=== PATIENT | male | born 1965 | race Caucasian/White ===

== ENCOUNTER → 2019-02-10 07:43 | Outpatient (CLI) | payer OTHER, SELFPAY ==
--- NOTE | 2019-02-10 | CA_ITS ---
APPROVED REPORT Exam: Exercise Treadmill Technologist: kathy gallo, Ht: 5 ft 6 in Wt: 180 lbs BSA: 1.91 m2 HR: 63 bpm BP: 127/89 mmHg Indications: SOB< CAD Medical History Medications: Asa,,,,, Atorvastatin,,,,, Stress Test Details Test: Tab HR Resting HR: 72 bpm Max Heart Rate (APMHR): 167 bpm Max HR Achieved: 148 bpm Target HR (85% APMHR): 141 bpm % of APMHR: 88 Recovery HR: 106 bpm BP Resting BP: 127.0/89.0 mmHg Max BP: 166.0/88.0 mmHg Recovery BP: 148.0/79.0 mmHg ECG Clinical Exercise duration: 10:15 min Highest Stage Achieved: Exercise capacity: 12.8 METs Stress ECG Conclusion SYMPTOMS: NO CHEST PAIN. ARRHYTHMIAS/ECTOPY: OCC ISOLATED PVC. ST-T CHANGES: APPROX 1MM OF SLIGHTLY UPSLOPING ST DEPRESSION INFERIORLY WITH MOTION ARTIFACT. EQUIVOCAL EKG CHANGES. MYOVIEW IMAGES REPORTED SEPARATELY. Test Summary Stage 3 01:00 14.0 3.4 119 . . . . REST . . . . . . . Sitting REST 04:24 0.0 0.0 72 . 127/ 89 . . Stage 1 01:00 10.0 1.7 85 . . . . Stage 1 02:00 10.0 1.7 88 . . . . Stage 1 03:00 10.0 1.7 88 . 145/ 85 . . Stage 2 01:00 12.0 2.5 99 . . . . Stage 2 02:00 12.0 2.5 102 . . . . Stage 2 03:00 12.0 2.5 104 . 154/ 84 . . Stage 3 01:00 14.0 3.4 119 . . . . Stage 3 02:00 14.0 3.4 126 . . . . Stage 3 03:00 14.0 3.4 132 . 166/ 88 . . Stage 4 . . . . . . . Cardiolite injected Stage 4 01:00 16.0 4.2 145 . . . . Stage 4 01:15 16.0 4.2 147 . . . Stop exercise at 10:15 RECOVERY 01:00 0.0 0.0 122 . . . . RECOVERY 02:00 0.0 0.0 110 . 148/ 79 . . RECOVERY 03:00 0.0 0.0 91 . 148/ 79 . . RECOVERY 04:00 0.0 0.0 88 . 153/ 75 . . RECOVERY 05:00 0.0 0.0 87 . 141/ 76 . . RECOVERY 05:24 0.0 0.0 91 . 141/ 76 . . Electronically signed by : Rajinder Chiu, 02/16/2019 11:41:43
--- NOTE | 2019-02-10 07:44 | NM_ITS ---
APPROVED REPORT Exam: Nuclear Stress Test NM EXAM: Myocardial Perfusion REST/STRESS Imaging Protocol: Rest Tc-99m/Stress Tc-99m 1 day Resting Data Rest SPECT myocardial perfusion imaging was performed in supine position 30 minutes following the intravenous injection of 10.10 mCi of tc99 Time of rest injection: 0800 The images were gated to evaluate regional wall motion and calculate left ventricular ejection fraction. Administration Route: IV Administration Site: Left AC Exercise Stress At peak stress, the patient was injected intravenously with 32.4mCi of Tc-99m Tetrofosmin. Time of stress injection: 0915 Administration Route: IV Administration Site: Left AC Heart Rate at time of stress injection: 130 bpm. Patient continued to exercise for 10:15 minute(s). Gated Stress SPECT was performed 30 minutes after stress injection. The images were gated to evaluate regional wall motion and calculate left ventricular ejection fraction. Nuclear Conclusion Stress images reveal severely decreased activity throughout the lateral wall while rest images reveal no significant change. Gated images calculated ejection fraction of 63% with normal wall motion. Extensive lateral wall infarct not accompanied by reduction in ejection fraction or regional wall motion abnormality. This is a high risk abnormal stress test Electronically signed by : Rajinder Chiu, 02/11/2019 13:26:32
--- NOTE | 2019-02-10 12:39 | HMH.ITSHM ---
Current Home Medications as stated by this patient Kris Sneed or loan representative. [] atorvastatin asa
== END ==
PROVIDERS: PCP Orthopaedic Surgery; Visit Provider Internal Medicine Cardiovascular Disease
DX: E78.5 Hyperlipidemia, unspecified (principal); I11.9 Hypertensive heart disease without heart failure; I25.10 Atherosclerotic heart disease of native coronary artery without angina pectoris; R06.02 Shortness of breath; F17.200 Nicotine dependence, unspecified, uncomplicated
CPT/HCPCS: 78452; 93017; A9502

== ENCOUNTER → 2019-02-16 07:44 | Outpatient (CLI) | payer OTHER, SELFPAY ==
--- NOTE | 2019-02-16 07:51 | CA_ITS ---
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 Laterality: Bilateral Study Quality: Good Indications: stroke, cva Risk Factors Hypertension: TIA/CVA History Hyperlipidemia Doppler Spectral Velocity Analysis ECA (R) 88.20/ cm/s ECA (L) 77.20/ cm/s dICA (R) 77.20/39.70 cm/s dICA (L) 82.60/44.60 cm/s Jl (R) 79.40/37.50 cm/s Jl (L) 87.10/39.70 cm/s pICA (R) 72.20/33.10 cm/s pICA (L) 65.10/31.40 cm/s dCCA (R) 82.90/34.90 cm/s dCCA (L) 72.20/33.10 cm/s pCCA (R) 74.60/24.40 cm/s pCCA (L) 76.60/32.00 cm/s Vert (R) 40.20/ cm/s Vert (L) 64.00/ cm/s ICA/CCA 0.96 ICA/CCA 1.21 Findings Duplex evaluation demonstrates stenosis of the right proximal internal carotid artery in the range of 20-49% with PSV <140 cm/sec, EDV <100 cm/sec, and IC/CC Ratio <4.0.Duplex evaluation demonstrates stenosis of the left proximal internal carotid artery in the range of 20-49% with PSV <140 cm/sec, EDV <100 cm/sec, and IC/CC Ratio <4.0. Duplex evaluation demonstrates antegrade flow of the bilateral Vertebral Arteries. Conclusion Duplex evaluation demonstrates stenosis of the right proximal internal carotid artery in the range of 20-49% with PSV <140 cm/sec, EDV <100 cm/sec, and IC/CC Ratio <4.0.Duplex evaluation demonstrates stenosis of the left proximal internal carotid artery in the range of 20-49% with PSV <140 cm/sec, EDV <100 cm/sec, and IC/CC Ratio <4.0. Duplex evaluation demonstrates antegrade flow of the bilateral Vertebral Arteries. Electronically signed by : Malvin Aguilar MD 02/16/2019 17:30:18
== END ==
PROVIDERS: Visit Provider Internal Medicine Cardiovascular Disease
DX: R06.02 Shortness of breath (principal); I25.10 Atherosclerotic heart disease of native coronary artery without angina pectoris; E78.5 Hyperlipidemia, unspecified; I11.9 Hypertensive heart disease without heart failure; Z86.73 Personal history of transient ischemic attack (TIA), and cerebral infarction without residual deficits
CPT/HCPCS: 93306; 93880

== ENCOUNTER → 2019-09-22 08:32 | Outpatient (CLI) | payer OTHER, SELFPAY ==
--- NOTE | 2019-09-22 08:38 | XR_ITS ---
PROCEDURE: XR FINGER LT MIN 2V CLINICAL INDICATION: left thumb fx/ laceration COMPARISON: FINGERLT XR finger LT min 2V from 07/26/2018 XR HAND LT MIN 3V from 09/01/2019 FINDINGS: There is continued evidence of comminuted fracture of the distal phalangeal tuft of the 1st digit with mild distraction of the fracture fragments greatest along the radial aspect of the digit. No significant interval callus formation of healing is apparent. The joint spaces are well-preserved. No significant degenerative/arthritic changes. No erosive changes evident. Other findings:None. IMPRESSION: Continued slight distraction of comminuted fracture fragments distal phalangeal tuft without significant callus formation of healing. Dictated by: Kris Frausto 09/22/2019 09:40 Electronically signed by Kris Frausto in [place] 09/22/2019 09:40
== END ==
PROVIDERS: Visit Provider Orthopaedic Surgery
DX: S62.522A Displaced fracture of distal phalanx of left thumb, initial encounter for closed fracture (principal)
CPT/HCPCS: 73140

== ENCOUNTER → 2019-10-27 08:42 | Outpatient (CLI) | payer OTHER, SELFPAY ==
--- NOTE | 2019-10-27 08:51 | XR_ITS ---
PROCEDURE: XR HAND LT MIN 3V CLINICAL INDICATION: thumb lac FU Follow-up laceration COMPARISON: XR HAND LT MIN 3V from 09/01/2019 FINDINGS: Fracture once again noted involving the tuft of the distal phalanx of the thumb. There are multiple small opacities at this area. Some of these may be due to comminuted fragments while others could be due to foreign body. There is somewhat less tightly grouped compared to the previous exam. Small calcific density is present at the tip of the distal phalanx of the 2nd finger. Small subarticular cystic changes present at the distal aspect of the proximal phalanx of the 5th finger IMPRESSION: Loosely clustered small opacities at the distal phalanx of the thumb which could be due to small bony fragments and or foreign bodies. Dictated by: Malvin Aguilar MD 10/27/2019 10:23 Electronically signed by Malvin Aguilar MD in [place] 10/27/2019 10:23
== END ==
PROVIDERS: Visit Provider Orthopaedic Surgery
DX: S61.019A Laceration without foreign body of unspecified thumb without damage to nail, initial encounter (principal); S62.522A Displaced fracture of distal phalanx of left thumb, initial encounter for closed fracture
CPT/HCPCS: 73130

== ENCOUNTER → 2022-03-13 06:54 | Outpatient (CLI) | payer BC, SELFPAY ==
[2022-03-13 16:32] LABS: Basophils # 0.2 K/mm3 (0-0.2); Basophils % 1.7 % (0.1-2.0); Eosinophils # 0.2 K/mm3 (0.0-0.4); Eosinophils % 1.6 % (0.1-12.0); Hematocrit 49.5 % (42.0-52.0); Hemoglobin 16.3 g/dL (14.1-18.0); Lymphocytes # 2.9 K/mm3 (0.7-4.5); Lymphocytes % 30.6 % (10-50); Mean Corpuscular HGB Conc 32.9 g/dL (31.8-35.4); Mean Corpuscular Volume 100.2 fl (80-94); Mean Platelet Volume 8.8 fl (7.4-10.4); Monocytes # 0.4 K/mm3 (0.1-1.0); Monocytes % 4.6 % (1.7-9.3); Neutrophils # 5.8 K/mm3 (1.8-7.8); Neutrophils % 61.5 % (37.0-80.0); Platelet Count 291 K/mm3 (142-424); Red Blood Count 4.94 M/mm3 (4.60-6.20); White Blood Count 9.3 K/mm3 (4.8-10.8)
[2022-03-13 16:37] LABS: Alanine Aminotransferase 17 U/L (12-78); Albumin Level 3.8 g/dl (3.5-5.0); Albumin/Globulin Ratio 1.4 (1.1-1.8); Alkaline Phosphatase 124 U/L (38-126); Anion Gap 13.1 mEq/L (5-15); Aspartate Amino Transferase 33 U/L (17-59); Bilirubin,Total 0.5 mg/dl (0.2-1.3); Blood Urea Nitrogen 18 mg/dl (9-20); Calcium 8.9 mg/dl (8.4-10.2); Carbon Dioxide 28 mmol/L (22.0-30.0); Chloride 103 mmol/L (98-107); Chol/HDL Ratio 5.1 (1-3.5); Cholesterol 143 mg/dl (140-200); Estimated Glomerular Filt Rate 77 ml/min (>60); GFR (African American) 94 ML/MIN (>60); Globulin 2.7 g/dL (1.3-3.2); Glucose 97 mg/dl (74-100); HDL Cholesterol 28 mg/dl (40-60); Potassium 5.1 mmoL/L (3.5-5.1); Sodium 139 mmol/L (136-145); Total Protein,Serum 6.5 g/dl (6.3-8.2); Triglycerides 104 mg/dl (30-150); VLDL Cholesterol 21 mg/dL (0-40)
[2022-03-13 16:48] LABS: Direct LDL Cholesterol 94.25 mg/dL (100-129)
[2022-03-13 16:55] LABS: Hemoglobin A1C 5.5 % (4.0-6.0)
[2022-03-13 17:08] LABS: Thyroid Stimulating Hormone 1.39 uIU/mL (0.465-4.68)
== END ==
PROVIDERS: PCP Family Medicine; Visit Provider Family Medicine
DX: D68.51 Activated protein C resistance (principal); I10 Essential (primary) hypertension; E78.2 Mixed hyperlipidemia
CPT/HCPCS: 80053; 80061; 83036; 84443; 85025

== ENCOUNTER 2022-04-23 09:48 | Day surgery (SDC) | payer BC, OTHER, SELFPAY ==
[2022-04-07 14:13] VITALS: BMI 29.8
[2022-04-23] VITALS (7 sets, daily range): BP systolic 87–115; BP diastolic 58–73; PULSE 48–64; RESP 18; TEMP 36.2–36.6; O2SAT 95–100
--- NOTE | 2022-04-23 11:46 | EXP.ANES.CKL ---
PFSH PFS Medical History (Updated 04/23/22 @ 10:29 by Kaylee Dave RN) Allergies History of CVA (cerebrovascular accident) History of [place] (myocardial infarction) Hx of factor V Leiden mutation Hyperlipemia Hypertension Surgical History History of cardiac cath Family History (Updated 04/23/22 @ 10:29 by Kaylee Dave RN) Father Family history of myocardial infarction Stroke Family/Other Brain tumor Alzheimer disease Grandmother Alzheimer disease Social History (Updated 04/23/22 @ 10:31 by Kaylee Dave RN) Smoking Status: Current every day smoker tobacco type: cigarettes packs per day: 1 years smoked: 42 alcohol intake: current substance use type: denies use current occupational status: employed Travel in the last 8 weeks: None household members: spouse housing: house lives independently: Yes marital status: caffeine: Yes special sariah needs: No agree to transfusion: No do you feel safe at home: Yes victim of physical abuse: No victim of emotional abuse: No victim of sexual abuse: No would you like helpful sources: No [facility] Anesthesia Checklist Patient Identification Patient Identification: Arm Band Structural Data Admitted From: Home Planned Operative Procedure/s: colonoscopy Consent for Planned Operative Procedure(s) Verified: Yes Verified Documents: Surgical Consent and History and Physical NPO Status Verified Time NPO: 00:00 Additional verifications Anesthesia Reactions: No Airway Assessment C-Spine Mobility Assessed: Yes TMJ Mobility Assessed: Yes Dentition: Poor Dentition Neurological Assessment Level of Consciousness: Awake and Alert Anesthesia Plan Anesthesia Risk discussed: Yes Anesthesia Plan: Verified ASA Class: III Anesthesia Type: MAC
--- NOTE | 2022-04-23 13:00 | P.PCN_ITS ---
Procedure: Date: 04/23/22 Patient Date of :: 1965 Procedure Performed:: Colonoscopy Indications:: Positive Cologuard test Performing Provider:: Artem Bravo MD Referring Provider:: Tod Valderrama Sedation:: See RN records Procedure:: After placing the patient in the left lateral decubitus position, the colonoscopy was gently inserted into the rectum and under direct visualization advanced to the cecum which was identified by transillumination in the right lower quadrant, identification of the ileocecal valve, appendiceal orifice, and cecal strap. Color, texture, mucosa, and anatomy of the colon were carefully examined with the scope. Findings:: Anal canal: normal Rectum: Large penduculated polyp 20 mm in size. Removed completely with hot sna re polypectomy. Polyp was retrieved. Sigmoid colon: Sessile polyp 4 mm in size. Removed with cold snare polypectomy Descending colon: Pedunculated polyp 8-9 mm in size. Removed with hot snare polypectomy. Polyp was retrieved. Splenic flexure: normal Transverse colon: Two sessile polyps 5-6 mm in size. Removed with cold snare polypectomy Hepatic flexure: normal Ascending colon: normal without polyps or inflammatory changes Cecum: normal Terminal ileum: not visualized Impression: Multiple polyps Recommendations:: Await pathology results Repeat colonoscopy in 2 years or sooner if clinically indicated Complications:: None Estimated blood obtained (mL): 0
== END 2022-04-23 13:51 | disposition home or self-care (01) ==
PROVIDERS: PCP Family Medicine; Visit Provider Internal Medicine
PROC: 0DJD8ZZ Inspection of Lower Intestinal Tract, Via Natural or Artificial Opening Endoscopic (ICD-10-PCS; CPT 45378; principal; 2022-04-23 11:00)
DX: R19.5 Other fecal abnormalities (principal); K63.5 Polyp of colon; Z72.0 Tobacco use; Z79.899 Other long term (current) drug therapy
CPT/HCPCS: 45385

== ENCOUNTER → 2022-07-04 09:36 | Outpatient (CLI) | payer BC, OTHER, SELFPAY ==
--- NOTE | 2022-07-04 09:46 | XR_ITS ---
FINAL REPORT CLINICAL HISTORY: rt shoulder pain after chopping wood FINDINGS: RIGHT SHOULDER 3 views of the right shoulder were obtained. There is no acute fracture or dislocation. There are mild degenerative changes of the acromioclavicular and glenohumeral joints. There are subchondral cysts in the humeral head. There is no soft tissue abnormality. IMPRESSION: Degenerative change with no acute bony abnormality. Reviewed, Interpreted and Dictated by Randall Subramanian III, MD Transcribed by Radha Munoz Authenticated and [facility]
== END ==
PROVIDERS: PCP Family Medicine; Visit Provider Orthopaedic Surgery
DX: M25.511 Pain in right shoulder (principal)
CPT/HCPCS: 73030

== ENCOUNTER 2022-08-22 10:32 | Day surgery (SDC) | payer BC, OTHER, SELFPAY ==
[2022-08-22] VITALS (13 sets, daily range): BP systolic 106–129; BP diastolic 69–107; PULSE 56–80; RESP 17–18; O2SAT 93–100; BMI 30.4
--- NOTE | 2022-08-22 10:36 | IR_ITS ---
APPROVED REPORT Patient Location: Outpatient Mass Spectrometry Manager: TRACY Avalos RT (R) PROCEDURES Left heart catheterization Left ventriculogram Selective coronary angiogram Drug-eluting stent deployment to the proximal LAD Intravascular ultrasound of the right coronary artery Drug-eluting stent deployment to the proximal mid and distal dominant right coronary contiguous manner INDICATION Unstable angina, Coronary artery disease, Hazy lesion within the right coronary artery suggestive of ruptured plaque, MLA 3.5 mm??? within the right coronary, Plaque burden of 76.9% within the right coronary, Informed consent was obtained prior to the procedure. COMPLICATIONS None Estimated Blood Loss: Less than 10 mls TECHNIQUE One percent lidocaine used to anesthetize the right anterior aspect of the wrist. The right radial artery was accessed via the Seldinger technique. A 6 [place] sheath was placed in the right radial artery. 2.5 mg of verapamil, 800 mcg of nitroglycerin, 1mg Lidocaine and 5000 U Heparin were given through the arterial sheath. The papa catheter was also used to perform selective coronary angiogram. At the end the diagnostic angiogram therapeutic heparin was administered giving a therapeutic ACT and the guide catheter was placed in left main artery followed by Choice PT extra-support wire. A 3.5 x 38 mm resolute [place] stent was deployed at 18 shereen reducing the severe stenosis. A 3.5 x 12 mm noncompliant balloon was placed in the midportion and proximal portion and deployed at 24 shereen to post dilate. [place]-3 flow was present before and after the procedure. At the end the procedure the apparatus was removed the guide catheter was used to intubate the right coronary artery. There was a hazy lesion in the right coronary artery which was suspicious for severe to critical stenosis. The Choice PT extra-support wire was placed distally and intravascular ultrasound probe was advanced which demonstrated an MLA of 3.5 mm??? within the mid dominant right coronary artery with a plaque burden in excess of 76.9% at the stenotic lesion. Because of this a 4.5 x 30 mm resolute [place] stent was deployed at 20 shereen reducing the critical stenosis. No significant stepdown was identified distally therefore a 4 mm x 12 mm resolute Petey stent was deployed at 18 shereen with the balloon brought back between the 2 stents and deployed at 28 shereen to mesh the 2 stents. [place]-3 flow was present before and after the procedure. At the end the procedure the apparatus was removed the sheath was removed good hemostasis was achieved using TR banding patient was transferred to the postop putting in stable condition ANGIOGRAPHIC RESULTS The left main artery Normal The left anterior descending artery Had proximal tandem 80% stenoses with mid vessel 20 to 30% luminal irregularities The circumflex artery Nondominant with proximal 30% and an additional 80 to 90% stenosis in the mid circumflex artery at the vessel diameter of 2 mm The right coronary artery Is a massively large dominant vessel and has a hazy 50 to 60% mid vessel stenosis which proved to be severe to critical. Distally there are diffuse 10 to 20% luminal irregularities with a 40% stenosis in the mid PDA The HAMMONDS ventriculogram reveals Not performed The left ventricular end-diastolic pressure Not measured IMPRESSION Severe to critical coronary disease as described above Successful stenting the proximal LAD severe to critical disease reduced to 0% with 1 drug-eluting stent Successful stenting of the proximal mid and distal dominant right coronary artery severe to critical disease reduced to 0% with 2 contiguous drug-eluting stents Persistent severe stenosis and a 2 mm
[2022-08-22 11:12] LABS: Basophils # 0.2 K/mm3 (0-0.2); Basophils % 1.5 % (0.1-2.0); Eosinophils # 0.1 K/mm3 (0.0-0.4); Eosinophils % 1.2 % (0.1-12.0); Hematocrit 49.9 % (42.0-52.0); Hemoglobin 17.1 g/dL (14.1-18.0); Lymphocytes # 3.1 K/mm3 (0.7-4.5); Lymphocytes % 29.1 % (10-50); Mean Corpuscular HGB Conc 34.2 g/dL (31.8-35.4); Mean Corpuscular Hemoglobin 33.6 pg (27.0-31.2); Mean Corpuscular Volume 98.3 fl (80-94); Mean Platelet Volume 7.9 fl (7.4-10.4); Monocytes # 0.5 K/mm3 (0.1-1.0); Monocytes % 4.9 % (1.7-9.3); Neutrophils # 6.7 K/mm3 (1.8-7.8); Neutrophils % 63.3 % (37.0-80.0); Platelet Count 279 K/mm3 (142-424); Red Blood Count 5.08 M/mm3 (4.60-6.20); Red Cell Distribution Width 12.9 % (11.5-17.5); White Blood Count 10.6 K/mm3 (4.8-10.8)
[2022-08-22 11:16] LABS: Chloride 103 mmol/L (98-107); Potassium 4.1 mmoL/L (3.5-5.1); Sodium 138 mmol/L (136-145)
[2022-08-22 11:19] LABS: Anion Gap 9.1 mEq/L (5-15); Blood Urea Nitrogen 15 mg/dl (9-20); Carbon Dioxide 30 mmol/L (22.0-30.0); Creatinine Clearance Estimated 100 mL/min (50-200); Estimated Glomerular Filt Rate 77 ml/min (>60); GFR (African American) 94 ML/MIN (>60)
[2022-08-22 11:20] LABS: Calcium 8.6 mg/dl (8.4-10.2); Glucose 92 mg/dl (74-100)
[2022-08-22 14:52] LABS: CATHL Activated Clotting Time > 400 SEC (74-125)
--- NOTE | 2022-08-22 15:22 | HMH.PHACL ---
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
== END 2022-08-22 16:43 | disposition home or self-care (01) ==
PROVIDERS: PCP Family Medicine; Visit Provider Internal Medicine
DX: I25.110 Atherosclerotic heart disease of native coronary artery with unstable angina pectoris (principal); D68.51 Activated protein C resistance; F17.210 Nicotine dependence, cigarettes, uncomplicated; I10 Essential (primary) hypertension; I25.83 Coronary atherosclerosis due to lipid rich plaque
CPT/HCPCS: 80048; 85025; 85347; 92928; 92978; 99152; 99153; C1725; C1769; C1876; C9600; J1644; Q9967

== ENCOUNTER 2022-10-21 15:00 | Outpatient (RCR) | payer BC, OTHER, SELFPAY | END 2022-11-05 07:25 | disposition home or self-care (01) | LOC: PT 15:00 | PROVIDERS: PCP Family Medicine; Visit Provider Orthopaedic Surgery Adult Reconstructive Orthopaedic Surgery | DX: M25.511 Pain in right shoulder (principal) | CPT/HCPCS: 20560; 97010; 97014; 97033; 97110; 97163; 97530; G0283 ==

== ENCOUNTER 2022-10-23 09:14 | Observation (INO) | payer BC, OTHER, SELFPAY ==
[2022-10-23] VITALS (18 sets, daily range): BP systolic 99–135; BP diastolic 55–91; PULSE 56–85; RESP 16–20; TEMP 36.7–36.9; O2SAT 95–99; BMI 29.8; BMI 27.9
--- NOTE | 2022-10-23 09:11 | ECG_ITS ---
APPROVED REPORT Exam: Resting ECG HR:68 bpm ECG Measurements Heart Rate 68 AXES CO 180 P 62 QRSd 97 QRS 38 QT 376 T 55 QTc 393 Conclusion SINUS RHYTHM POSSIBLE LEFT ATRIAL ENLARGEMENT [-0.1mV P-WAVE IN V1/V2] POSSIBLE ANTERIOR MYOCARDIAL INFARCTION , OF INDETERMINATE AGE [30 ms Q WAVE IN V3/V4, OR R < 0.2 mV IN V4] POSSIBLE INFERIOR MYOCARDIAL INFARCTION , PROBABLY OLD [30 ms Q WAVE IN II/aVF] ABNORMAL ECG UNCONFIRMED REPORT Electronically signed by : Jonathan Slade MD 10/23/2022 21:21:47
--- NOTE | 2022-10-23 09:17 | XR_ITS ---
FINAL REPORT CLINICAL HISTORY: soa, chest pain, smoker FINDINGS: SINGLE-VIEW CHEST The heart size is normal. The mediastinum is normal. The lungs are clear. There is no pneumothorax. IMPRESSION: No acute cardiopulmonary process. Reviewed, Interpreted and Dictated by Orlando Solis MD Transcribed by Margaret Gonsalez Authenticated and . [facility]
--- NOTE | 2022-10-23 09:27 | HMH.EDGENADL ---
Discharge Plan Disposition Patient Disposition: Admitted As Inpatient Chief Complaint: Chest Pain Prescriptions Prescriptions: No Action ranolazine 500 mg tablet extended release 12 hr 500 mg PO BID Qty: 60 2RF losartan 50 mg tablet 50 mg PO DAILY atorvastatin 40 mg tablet 40 mg PO DAILY metoprolol succinate 25 mg tablet extended release 24 hr 25 mg PO DAILY Brilinta 90 mg Tablet 90 mg PO BID 30 Days Qty: 60 3RF aspirin 81 MG tablet,delayed release (DR/EC) 81 mg PO DAILY Referrals Follow up/Referrals: Provider,Referral, MD [Referring] - See instructions Clinical Impressions Clinical Impression: Angina pectoris, unstable Discharge ED Provider: Juan Miguel Gray General Adult HPI General Chief complaint: Chest Pain Stated complaint: chest pain Time Seen by Provider: 10/23/22 09:15 Mode of Arrival: Ambulatory Source of Information: Patient and Spouse Limitations: No Limitations Description of Symptoms (Recalled from ER Triage Doc. 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 +bilateral arm heaviness that started yesterday with head feeling like it is in a fog . +Brillinta, Asa 81mg. Hx of cardiac stents x August. History of Present Illness HPI narrative: 57-year-old male with history of coronary disease hypertension presents with midsternal chest pain for the last few hours. He says the pain is right upper center chest dull in nature going down both arms and his arms feel heavy. He had prior history of stents placed in August 2022. No hemoptysis no radiation of the pain to the back was not severe in onset. Yesterday he felt generally weak. Related Data Home Medications Medication Instructions Recorded Confirmed aspirin 81 mg tablet,delayed 81 mg PO DAILY heart health 07/26/18 10/15/22 release atorvastatin 40 mg tablet 40 mg PO DAILY Cholesterol 04/07/22 10/15/22 losartan 50 mg tablet 50 mg PO DAILY HTN 04/07/22 10/15/22 metoprolol succinate 25 mg 25 mg PO DAILY HTN 04/07/22 10/15/22 tablet,extended release 24 hr Previous Rx's Medication Instructions Recorded ticagrelor 90 mg tablet (Brilinta) 90 mg PO BID 30 days #60 tabs 08/22/22 ranolazine 500 mg tablet,extended 500 mg PO BID #60 tabs 09/03/22 release,12 hr Allergies Allergy/AdvReac Type Severity Reaction Status Date / Time No Known Allergies Allergy Verified 10/15/22 13:28 [facility] Disclaimer: The information contained in this section may have been updated after the patient was seen, as this information can be updated by other users. Medical History (Updated 10/23/22 @ 11:15 by Juan Miguel Gray MD) Abnormal result of cardiovascular function study Allergies Angina pectoris CAD (coronary artery disease) HHD (hypertensive heart disease) History of CVA (cerebrovascular accident) History of [place] (myocardial infarction) Hx of factor V Leiden mutation Hyperlipemia Hypertension Tobacco user Typical angina Unstable angina Surgical History History of cardiac cath Family History Father Family history of myocardial infarction Stroke Family/Other Brain tumor Alzheimer disease Grandmother Alzheimer disease Social History Smoking Status: Current every day smoker tobacco type: cigarettes packs per day: 1 years smoked: 42 alcohol intake: current substance use type: denies use current occupational status: employed Travel in the last 8 weeks: None household members: spouse housing: house lives independently: Yes marital status: caffeine: Yes special sariah needs: No agree to transfusion: No do you feel safe at home: Yes victim of physical abuse: No victim of emotional abuse: No victim of sexual abuse: No would you like helpful
[2022-10-23 09:33] LABS: Basophils % 0.4 % (0.1-2.0); Eosinophils # 0.2 K/mm3 (0.0-0.4); Eosinophils % 1.6 % (0.1-12.0); Hematocrit 48.5 % (42.0-52.0); Hemoglobin 16.2 g/dL (14.1-18.0); Lymphocytes # 2.5 K/mm3 (0.7-4.5); Lymphocytes % 25.2 % (10-50); Mean Corpuscular HGB Conc 33.4 g/dL (31.8-35.4); Mean Corpuscular Hemoglobin 32.7 pg (27.0-31.2); Mean Corpuscular Volume 97.7 fl (80-94); Mean Platelet Volume 6.8 fl (7.4-10.4); Monocytes # 0.6 K/mm3 (0.1-1.0); Monocytes % 5.7 % (1.7-9.3); Neutrophils # 6.6 K/mm3 (1.8-7.8); Platelet Count 247 K/mm3 (142-424); Red Blood Count 4.96 M/mm3 (4.60-6.20); Red Cell Distribution Width 12.8 % (11.5-17.5); White Blood Count 9.8 K/mm3 (4.8-10.8)
[2022-10-23 09:39] LABS: Chloride 97 mmol/L (98-107); Sodium 137 mmol/L (136-145)
[2022-10-23 09:41] LABS: Alanine Aminotransferase 25 U/L (12-78); Alkaline Phosphatase 106 U/L (38-126); Aspartate Amino Transferase 29 U/L (17-59); Bilirubin,Total 0.5 mg/dl (0.2-1.3); Blood Urea Nitrogen 26 mg/dl (9-20); Creatinine Clearance Estimated 81 mL/min (50-200); Estimated Glomerular Filt Rate 62 ml/min (>60); GFR (African American) 76 ML/MIN (>60)
[2022-10-23 09:42] LABS: Albumin Level 4.5 g/dl (3.5-5.0); Albumin/Globulin Ratio 1.7 (1.1-1.8); Carbon Dioxide 26 mmol/L (22.0-30.0); Globulin 2.7 g/dL (1.3-3.2); Glucose 113 mg/dl (74-100); Total Protein,Serum 7.2 g/dl (6.3-8.2)
[2022-10-23 09:54] LABS: Troponin I < 0.01 ng/ml (0.00-0.034)
--- NOTE | 2022-10-23 10:01 | PC.NURSE ---
paging yamileth dumont from cardiology to speak with
--- NOTE | 2022-10-23 10:15 | PC.NURSE ---
rounded on pt no complaints at this time, at bs
--- NOTE | 2022-10-23 10:16 | PC.NURSE ---
speaking with yamileth dumont about pt
--- NOTE | 2022-10-23 10:51 | EXP.CARD.CON ---
History of Present Illness History of Present Illness Consult date: 10/23/22 Requesting physician: Juan Miguel Gray Consult reason: chest pain Chief complaint: chest pain History of present illness: This is a 57-year-old white gentleman who presented to the emergency department with complaints of chest pain. The patient reports that he is having pain in the midsternal area of his chest. He describes this as an aching, dull sensation that radiates to his arms and causes heaviness. He states that it started approximately 2 hours prior to arrival at the emergency department. The patient states that it was sudden onset. It is mild to moderate in intensity. The patient states that he has no shortness of breath, nausea, vomiting or diaphoresis associated with the chest pain. He states that this is the same pain that he felt prior to his previous stenting in the past. He states that yesterday he kind of felt like his head was in a fog and he was very weak and tired which was really unusual for him. Then he had the sudden onset of chest pain today. He denies any fevers, chills, nausea, vomiting, diarrhea, PND orthopnea. He denies any shortness of breath or edema. The patient states that he is still having chest pain currently with slight improvement after being given medications upon arrival to the emergency department. [facility] Disclaimer: The information contained in this section may have been updated after the patient was seen, as this information can be updated by other users. Medical History (Updated 10/23/22 @ 11:15 by Juan Miguel Gray MD) Abnormal result of cardiovascular function study Allergies Angina pectoris CAD (coronary artery disease) HHD (hypertensive heart disease) History of CVA (cerebrovascular accident) History of [place] (myocardial infarction) Hx of factor V Leiden mutation Hyperlipemia Hypertension Tobacco user Typical angina Unstable angina Surgical History History of cardiac cath Family History Father Family history of myocardial infarction Stroke Family/Other Brain tumor Alzheimer disease Grandmother Alzheimer disease Social History Smoking Status: Current every day smoker tobacco type: cigarettes packs per day: 1 years smoked: 42 alcohol intake: current substance use type: denies use current occupational status: employed Travel in the last 8 weeks: None household members: spouse housing: house lives independently: Yes marital status: caffeine: Yes special sariah needs: No agree to transfusion: No do you feel safe at home: Yes victim of physical abuse: No victim of emotional abuse: No victim of sexual abuse: No would you like helpful sources: No Review of Systems Review of Systems Review of systems:: pertinent systems reviewed and negative unless documented below Constitutional Constitutional: Reports system reviewed and no additional complaints, except as documented and Denies headache(s) Eyes Eyes: Reports system reviewed and no additional complaints, except as documented ENT Ears, Nose, Mouth, and Throat: Reports system reviewed and no additional complaints, except as documented and Denies headache(s) *Cardiovascular Cardiovascular: Reports system reviewed and no additional complaints, except as documented *Respiratory Respiratory: Reports system reviewed and no additional complaints, except as documented *Gastrointestinal Gastrointestinal: Reports system reviewed and no additional complaints, except as documented *Genitourinary Genitourinary: Reports system reviewed and no additional complaints, except as documented *Musculoskeletal Musculoskeletal: Reports system reviewed and no additional complaints, except as documented Integumentary/Breasts Skin/Breast: Reports system reviewed and no additional complai
[2022-10-23 11:14] LABS: PTT Heparin (inpatient only) 24.8 Seconds (23.6-34.0)
--- NOTE | 2022-10-23 11:14 | PC.NURSE ---
Care Management notified of admission.
--- NOTE | 2022-10-23 11:14 | PC.NURSE ---
MD aware of ptt 24.8
--- NOTE | 2022-10-23 11:14 | PC.NURSE ---
covid swab sent to lab
--- NOTE | 2022-10-23 11:15 | PC.NURSE ---
rounded on pt and learned that yamileth dumont stated to pt he was going to [facility], so have pt changing out of all clothes in to hospital gown and will clip pt for cath procedure
[2022-10-23 11:18] LABS: Coronavirus 19, PCR Not Detected (NotDetected); Influenza A, PCR Not Detected (NotDetected); Influenza B, PCR Not Detected (NotDetected)
--- NOTE | 2022-10-23 11:25 | IR_ITS ---
APPROVED REPORT Patient Location: Outpatient Multifocal Lens Inspector: TRACY Desai RT (R) PROCEDURES Selective coronary angiogram Drug-eluting stent deployment in the proximal to mid nondominant circumflex artery INDICATION Coronary artery disease, Recalcitrant angina pectoris Informed consent was obtained prior to the procedure. COMPLICATIONS None Estimated Blood Loss: Less than 10 mls TECHNIQUE One percent lidocaine used to anesthetize the right anterior aspect of the wrist. The right radial artery was accessed via the Seldinger technique. A 6 Romansh sheath was placed in the right radial artery. 150 mg magnesium sulfate, 800 mcg of nitroglycerin, 1mg Lidocaine and 5000 U Heparin were given through the arterial sheath. The papa catheter was also used to perform selective coronary angiography. Because patient is presenting back to the hospital with recalcitrant angina with a low blood pressure and low heart rate it was decided to proceed with revascularizing the small circumflex artery. I feel as the patient adequately failed medical management. Therapeutic heparin was administered and the guide catheter was placed in the left main artery followed by Choice PT extra-support wire down the circumflex artery. A 2 mm x 22 mm resolute Woodruff stent was deployed at 20 shereen reducing the angiographically severe stenosis to 0%. [place]-3 flow was present before and after the procedure at the end the procedure the apparatus was removed the sheath was removed good hemostasis was achieved using TR banding patient was transferred to the postop putting in stable condition ANGIOGRAPHIC RESULTS The left main artery Normal The left anterior descending artery Has a stent in the proximal segment which is widely patent with mild in-stent restenosis and excellent proximal distal transitioning. The remaining LAD has mild nonflow limiting 10 to 20% atheromatous plaque The circumflex artery Is a small caliber nondominant vessel which gives rise to a moderate sized ramus intermedius which is normal. The true circumflex artery has a 50% stenosis followed by a focal 90% stenosis in the midportion which then supplies a small to moderate right sized first obtuse marginal artery and a small second obtuse marginal artery. The right coronary artery Is a large dominant vessel and has stents in the proximal mid and distal segment in a contiguous manner. The stents are widely patent with minimal in-stent restenosis. The posterior descending artery is large and has a proximal 40% stenosis with additional 20 and 30% stenoses throughout The HAMMONDS ventriculogram reveals Not performed The left ventricular end-diastolic pressure Not measured IMPRESSION Severe stenosis in a small circumflex artery which appears to be the etiology for patient's recalcitrant angina pectoris with successful stenting reducing the focal 90% stenosis to 0% with 1 drug-eluting stent Remaining coronary disease as described above PLAN 1. Dual antiplatelet therapy 2. Aggressive risk factor modification 3. Continue with aggressive antianginal regimen 4. LDL less than 55 to be achieved with high intensity statin Electronically signed by : Rajinder Chiu MD 10/23/2022 14:19:10
--- NOTE | 2022-10-23 11:35 | PC.NURSE ---
vascular here for echo
--- NOTE | 2022-10-23 11:48 | HMH.PHAINT1 ---
Pharmacy Intervention Comments: MEDICATION RECONCILIATION COMPLETED ON PATIENT USING EXTERNAL FILL HISTORY FROM PHARMACY AND LIST FROM CARDIOLOGY OFFICE. -VAUGHN LÓPEZ, BRIAND
--- NOTE | 2022-10-23 12:23 | PC.NURSE ---
report called to carlee goins
[2022-10-23 12:54] LABS: Troponin I 0.02 ng/ml (0.00-0.034)
[2022-10-23 14:32] LABS: CATHL Activated Clotting Time > 400 SEC (74-125)
--- NOTE | 2022-10-23 16:26 | EXP.HP ---
[facility] Disclaimer: The information contained in this section may have been updated after the patient was seen, as this information can be updated by other users. Medical History Abnormal result of cardiovascular function study Allergies Angina pectoris CAD (coronary artery disease) HHD (hypertensive heart disease) History of CVA (cerebrovascular accident) History of [place] (myocardial infarction) Hx of factor V Leiden mutation Hyperlipemia Hypertension Tobacco user Typical angina Unstable angina Surgical History History of cardiac cath Family History Father Family history of myocardial infarction Stroke Family/Other Brain tumor Alzheimer disease Grandmother Alzheimer disease Social History (Updated 10/23/22 @ 12:54 by Deborah Diaz RN) Smoking Status: Current every day smoker tobacco type: cigarettes packs per day: 1 years smoked: 42 alcohol intake: current substance use type: denies use current occupational status: employed Travel in the last 8 weeks: None household members: spouse housing: house lives independently: Yes marital status: caffeine: Yes special sariah needs: No agree to transfusion: No do you feel safe at home: Yes victim of physical abuse: No victim of emotional abuse: No victim of sexual abuse: No would you like helpful sources: No Review of Systems Constitutional Constitutional: Denies headache(s) ENT Ears, Nose, Mouth, and Throat: Denies headache(s) *Neurologic Neurologic: Denies confusion and Denies headache(s) Psychiatric Psychiatric: Denies confusion Meds Home Medications and Allergies Home Medications Medication Instructions Recorded Confirmed Type aspirin 81 mg tablet,delayed 81 mg PO DAILY heart health 07/26/18 10/23/22 History release atorvastatin 40 mg tablet 40 mg PO DAILY Cholesterol 04/07/22 10/23/22 History losartan 50 mg tablet 50 mg PO DAILY Hypertension 04/07/22 10/23/22 History metoprolol succinate 25 mg 25 mg PO DAILY Hypertension 04/07/22 10/23/22 History tablet,extended release 24 hr ranolazine 500 mg tablet,extended 500 mg PO BID Chest pain 10/23/22 10/23/22 History release,12 hr ticagrelor 90 mg tablet (Brilinta) 90 mg PO BID platelet inhibitor 10/23/22 10/23/22 History New Prescriptions to Start Prescriptions: Allergies Allergy/AdvReac Type Severity Reaction Status Date / Time No Known Allergies Allergy Verified 10/15/22 13:28 Exam Data for Last 24 hours Vital signs and Labs for Last 24 Hours: Temp Pulse Resp BP Pulse Ox 98.2 F 61 20 113/76 97 10/23/22 12:42 10/23/22 12:42 10/23/22 14:27 10/23/22 12:42 10/23/22 12:42 Laboratory Results - last 24 hr 10/23/22 09:15: WBC 9.8, RBC 4.96, Hgb 16.2, Hct 48.5, MCV 97.7 H, MCH 32.7 H, MCHC 33.4, RDW 12.8, Plt Count 247, MPV 6.8 L, Neut % (Auto) 67.0, Lymph % (Auto) 25.2, [place] % (Auto) 5.7, Eos % (Auto) 1.6, Baso % (Auto) 0.4, Neut # (Auto) 6.6, Lymph # (Auto) 2.5, [place] # (Auto) 0.6, Eos # (Auto) 0.2, Baso # (Auto) 0.0 10/23/22 09:15: Sodium 137, Potassium 4.0, Chloride 97 L, Carbon Dioxide 26, Anion Gap 18.0 H, BUN 26 H, Creatinine 1.20, Estimated Creat Clear 81, Estimated GFR 62, Est GFR ( Amer) 76, Glucose 113 H, Calcium 9.0, Total Bilirubin 0.5, AST 29, ALT 25, Alkaline Phosphatase 106, Troponin I < 0.01, Total Protein 7.2, Albumin 4.5, Globulin 2.7, Albumin/Globulin Ratio 1.7 10/23/22 09:15: APTT 24.8 10/23/22 11:14: SARS-CoV-2 (PCR) Not detected, Influenza A Untype (PCR) Not detected, Influenza Type B (PCR) Not detected 10/23/22 12:22: Troponin I 0.02 10/23/22 13:57: Activated Clotting Time > 400 H* I & O for Last 24 hours: Intake & Output 10/20/22 10/21/22 10/22/22 10/23/22 23:59 23:59 23:59 23:59 Weight 78.5 kg
--- NOTE | 2022-10-23 19:30 | EXP.HP ---
History of Present Illness *Admission Date: 10/23/22 *Reason for visit:: Chest Pain *History of present illness: Mr. Sneed is a 57-year-old male with a past medical history of CAD, Factor V Leiden, Hyperlipidemia. He presents to [facility] due to an episode of Right mid-sternal chest pain that began approximately 2 hours prior to admission. He reports that the pain was associated with shortness of air, and radiation down both arms. He was taken to the rd lab technician and underwent a drug-eluting stent to the small circumflex artery. He has been seen following his procedure. He is currently denying chest pain or any symptoms. Cardiology has been consulted and is following the patient, he is currently on Brilinta, ASA, Statin and Beta Lexii therapy. [facility] Disclaimer: The information contained in this section may have been updated after the patient was seen, as this information can be updated by other users. Medical History Abnormal result of cardiovascular function study Allergies Angina pectoris CAD (coronary artery disease) HHD (hypertensive heart disease) History of CVA (cerebrovascular accident) History of [place] (myocardial infarction) Hx of factor V Leiden mutation Hyperlipemia Hypertension Tobacco user Typical angina Unstable angina Surgical History History of cardiac cath Family History Father Family history of myocardial infarction Stroke Family/Other Brain tumor Alzheimer disease Grandmother Alzheimer disease Social History Smoking Status: Current every day smoker tobacco type: cigarettes packs per day: 1 years smoked: 42 alcohol intake: current substance use type: denies use current occupational status: employed Travel in the last 8 weeks: None household members: spouse housing: house lives independently: Yes marital status: caffeine: Yes special sariah needs: No agree to transfusion: No do you feel safe at home: Yes victim of physical abuse: No victim of emotional abuse: No victim of sexual abuse: No would you like helpful sources: No Review of Systems Review of Systems Review of systems:: pertinent systems reviewed and negative unless documented below Constitutional Constitutional: Reports system reviewed and no additional complaints, except as documented and Denies headache(s) Eyes Eyes: Reports system reviewed and no additional complaints, except as documented ENT Ears, Nose, Mouth, and Throat: Reports system reviewed and no additional complaints, except as documented and Denies headache(s) *Cardiovascular Cardiovascular: Reports chest pain at rest, Reports chest pain with activity and Reports dyspnea *Respiratory Respiratory: Reports dyspnea *Gastrointestinal Gastrointestinal: Reports system reviewed and no additional complaints, except as documented *Genitourinary Genitourinary: Reports system reviewed and no additional complaints, except as documented *Musculoskeletal Musculoskeletal: Reports system reviewed and no additional complaints, except as documented Integumentary/Breasts Skin/Breast: Reports system reviewed and no additional complaints, except as documented *Neurologic Neurologic: Denies confusion and Denies headache(s) Psychiatric Psychiatric: Denies confusion Endocrine Endocrine: Reports system reviewed and no additional complaints, except as documented Hematologic/Lymphatic Hematologic/Lymphatic: Reports system reviewed and no additional complaints, except as documented Allergic/Immunologic Allergic/Immunologic: Reports system reviewed and no additional complaints, except as documented Meds Home Medications and Allergies Home Medications Medication Instructions Recorded Confirmed Type aspirin 81 mg tablet,
[2022-10-24] VITALS: BP 109/69; PULSE 70; PULSE 73; RESP 18; TEMP 36.9; O2SAT 91
[2022-10-24 04:00] VITALS: BP 119/76; PULSE 67; PULSE 73; RESP 16; TEMP 36.9; O2SAT 96; BMI 28.4
--- NOTE | 2022-10-24 04:59 | PC.NURSE ---
NO ACUTE CHANGES THIS SHIFT. VSS. LUNG SOUNDS CLEAR. RIGHT RADIAL CATH SITE IS COVERED AND IS C/D/I. NO C/O SOB OR CHEST PAIN. PT HAS RESTED WELL.
--- NOTE | 2022-10-24 06:22 | EXP.DC.SUM ---
General Admission date:: 10/23/22 Discharge date: 10/24/22 HPI HPI HPI: Mr. Sneed is a 57-year-old male with a past medical history of CAD, Factor V Leiden, Hyperlipidemia. He presents to [facility] due to an episode of Right mid-sternal chest pain that began approximately 2 hours prior to admission.? He reports that the pain was associated with shortness of air, and radiation down both arms.? He was taken to the starch factory laborer and underwent a drug-eluting stent to the small circumflex artery.? He has been seen following his procedure.? He is currently denying chest pain or any symptoms.? Cardiology has been consulted and is following the patient, he is currently on Brilinta, ASA, Statin and Beta Lexii therapy.? Hospital Course Hospital Course Hospital Course: 57-year-old male with history of CAD, Factor V Leiden, Hyperlipidemia presents due to an acute episode of chest pain. Taken from the ER to the Biomedical Service Engineer. Stenting of small circumflex artery with severe stenosis. Symptoms resolved. Stable for discharge home. Problems addressed as follows: - Unstable Angina -CAD Patient with history of CAD with recent PCI in 08/2022 to LAD and RCA. Known peristent Circumflex artery disease that was under medical management per review of chart. Cardiology consulted, underwent successful PCI to small circumflex due to severe stenosis. Recommendations are Brilinta, ASA, Statin, Beta Lexii. Follow-up with Cardiology at discharge. Patient continues to smoke, recommended smoking cessation. Cath findings as follows: IMPRESSION Severe stenosis in a small circumflex artery which appears to be the etiology for patient's recalcitrant angina pectoris with successful stenting reducing the focal 90% stenosis to 0% with 1 drug-eluting stent. - Factor V Leiden Continue Brilinta, ASA. Follow-up with PCP Stable for discharge home. No changes to medication regimen as patient is already on goal-directed therapy. Stated he did not need any refills. No refill sent. Follow-up with cardiology and PCP in the coming weeks Exam Data for Last 24 hours Vital signs and Labs for Last 24 Hours: Temp Pulse Resp BP Pulse Ox 98.5 F 73 16 119/76 96 10/24/22 04:00 10/24/22 04:00 10/24/22 04:00 10/24/22 04:00 10/24/22 04:00 Laboratory Results - last 24 hr 05/04/23 09:15: WBC 9.8, RBC 4.96, Hgb 16.2, Hct 48.5, MCV 97.7 H, MCH 32.7 H, MCHC 33.4, RDW 12.8, Plt Count 247, MPV 6.8 L, Neut % (Auto) 67.0, Lymph % (Auto) 25.2, [place] % (Auto) 5.7, Eos % (Auto) 1.6, Baso % (Auto) 0.4, Neut # (Auto) 6.6, Lymph # (Auto) 2.5, [place] # (Auto) 0.6, Eos # (Auto) 0.2, Baso # (Auto) 0.0 10/23/22 09:15: Sodium 137, Potassium 4.0, Chloride 97 L, Carbon Dioxide 26, Anion Gap 18.0 H, BUN 26 H, Creatinine 1.20, Estimated Creat Clear 81, Estimated GFR 62, Est GFR ( Amer) 76, Glucose 113 H, Calcium 9.0, Total Bilirubin 0.5, AST 29, ALT 25, Alkaline Phosphatase 106, Troponin I < 0.01, Total Protein 7.2, Albumin 4.5, Globulin 2.7, Albumin/Globulin Ratio 1.7 10/23/22 09:15: APTT 24.8 10/23/22 11:14: SARS-CoV-2 (PCR) Not detected, Influenza A Untype (PCR) Not detected, Influenza Type B (PCR) Not detected 10/23/22 12:22: Troponin I 0.02 10/23/22 13:57: Activated Clotting Time > 400 H* I & O for Last 24 hours: Intake & Output 10/21/22 10/22/22 10/23/22 10/24/22 23:59 23:59 23:59 23:59 Intake Total 480 / 480 Output Total 0 / 0 Balance 480 / 480 0 / 0 Weight 78.5 kg 80.286 kg Constitutional Constitutional: no acute distress *Routine HEENT Exam Head: Present normocephalic Eye: Present EOMI and PERRL ENT: Present mucous membranes moist *Routine Neck Exam Neck: Present supple; Absent lymphadenopathy *Routine Respiratory Exam Respiratory: Present CTA bilaterally; Absent rhonchi, wheezes or crackles *Routine Cardiovascular Exam Cardiovascular: Present RRR *Routine Abdominal Exam Abdominal: Present soft and normoactive bowel sounds; Absent tendernes
[2022-10-24 06:53] LABS: Basophils # 0.1 K/mm3 (0-0.2); Basophils % 0.4 % (0.1-2.0); Eosinophils # 0.2 K/mm3 (0.0-0.4); Eosinophils % 1.6 % (0.1-12.0); Hematocrit 47.7 % (42.0-52.0); Hemoglobin 15.6 g/dL (14.1-18.0); Lymphocytes # 2.4 K/mm3 (0.7-4.5); Mean Corpuscular HGB Conc 32.7 g/dL (31.8-35.4); Mean Corpuscular Hemoglobin 32.1 pg (27.0-31.2); Mean Corpuscular Volume 98.3 fl (80-94); Mean Platelet Volume 6.9 fl (7.4-10.4); Monocytes # 0.6 K/mm3 (0.1-1.0); Monocytes % 5.2 % (1.7-9.3); Neutrophils # 8.8 K/mm3 (1.8-7.8); Neutrophils % 72.8 % (37.0-80.0); Platelet Count 199 K/mm3 (142-424); Red Blood Count 4.85 M/mm3 (4.60-6.20); Red Cell Distribution Width 13.1 % (11.5-17.5)
[2022-10-24 07:08] LABS: Alanine Aminotransferase 25 U/L (12-78); Albumin Level 3.9 g/dl (3.5-5.0); Albumin/Globulin Ratio 1.5 (1.1-1.8); Alkaline Phosphatase 93 U/L (38-126); Anion Gap 10.2 mEq/L (5-15); Aspartate Amino Transferase 34 U/L (17-59); Bilirubin,Total 0.7 mg/dl (0.2-1.3); Blood Urea Nitrogen 20 mg/dl (9-20); Calcium 8.7 mg/dl (8.4-10.2); Carbon Dioxide 23 mmol/L (22.0-30.0); Chloride 106 mmol/L (98-107); Creatinine Clearance Estimated 84 mL/min (50-200); Estimated Glomerular Filt Rate 69 ml/min (>60); GFR (African American) 83 ML/MIN (>60); Globulin 2.6 g/dL (1.3-3.2); Glucose 112 mg/dl (74-100); Magnesium 2.1 mg/dl (1.6-2.3); Potassium 4.2 mmoL/L (3.5-5.1); Sodium 135 mmol/L (136-145); Total Protein,Serum 6.5 g/dl (6.3-8.2)
[2022-10-24 07:35] LABS: Alanine Aminotransferase 22 U/L (12-78); Albumin Level 3.8 g/dl (3.5-5.0); Alkaline Phosphatase 92 U/L (38-126); Anion Gap 11.4 mEq/L (5-15); Aspartate Amino Transferase 28 U/L (17-59); Bilirubin,Indirect 0.7 mg/dL (0.0-0.9); Bilirubin,Total 0.7 mg/dl (0.2-1.3); Bilirubin,Unconjugated 0.8 mg/dL (0.0-1.1); Blood Urea Nitrogen 20 mg/dl (9-20); Calcium 8.8 mg/dl (8.4-10.2); Carbon Dioxide 24 mmol/L (22.0-30.0); Chloride 105 mmol/L (98-107); Chol/HDL Ratio 4.1 (1-3.5); Cholesterol 147 mg/dl (140-200); Creatinine Clearance Estimated 93 mL/min (50-200); Estimated Glomerular Filt Rate 77 ml/min (>60); GFR (African American) 93 ML/MIN (>60); Glucose 108 mg/dl (74-100); HDL Cholesterol 36 mg/dl (40-60); Potassium 4.4 mmoL/L (3.5-5.1); Sodium 136 mmol/L (136-145); Total Protein,Serum 6.2 g/dl (6.3-8.2); Triglycerides 111 mg/dl (30-150); VLDL Cholesterol 22 mg/dL (0-40)
[2022-10-24 07:46] LABS: Direct LDL Cholesterol 90.59 mg/dL (100-129)
[2022-10-24 08:00] VITALS: BP 119/67; PULSE 60; RESP 18; TEMP 37.1; O2SAT 97
--- NOTE | 2022-10-24 08:31 | P.CONPHA_ITS ---
PHA Hydrographical Technical Officer Discharge Med Plastic Jig And Fixture Builder: Kris Sneed has received discharge medication counseling on the following medications: ASPIRIN BRILINTA ATORVASTATIN LOSARTAN METOPROLOL SUCCINATE PATIENT WAS ALREADY TAKING ALL NECESSARY MEDICATIONS. PATIENT HAD NO QUESTIONS OR CONCERNS AT THIS TIME. -VAUGHN LÓPEZ, BRIAND
--- NOTE | 2022-10-24 09:30 | EXP.CARD.PN ---
Subjective Subjective Date: 10/24/22 Time: 09:30 Principal diagnosis: angina, CAD Interval history: This is a 57-year-old gentleman who presented to the emergency department complaints of chest pain. The patient was having symptoms consistent with unstable angina. The patient underwent left cardiac catheterization yesterday and had stenting to the small circumflex artery. He tolerated well. He will remain on Brilinta and aspirin for dual antiplatelet therapy. This morning the patient denies any chest pain or pressure. He denies any shortness of breath or edema. He denies any fever, chills, nausea, vomiting, diarrhea, PND or orthopnea. Exam Data for Last 24 hours Vital signs and Labs for Last 24 Hours: Temp Pulse Resp BP Pulse Ox 98.7 F 60 18 119/67 97 10/24/22 08:00 10/24/22 08:00 10/24/22 08:00 10/24/22 08:00 10/24/22 08:00 Laboratory Results - last 24 hr 10/23/22 09:15: WBC 9.8, RBC 4.96, Hgb 16.2, Hct 48.5, MCV 97.7 H, MCH 32.7 H, MCHC 33.4, RDW 12.8, Plt Count 247, MPV 6.8 L, Neut % (Auto) 67.0, Lymph % (Auto) 25.2, [place] % (Auto) 5.7, Eos % (Auto) 1.6, Baso % (Auto) 0.4, Neut # (Auto) 6.6, Lymph # (Auto) 2.5, [place] # (Auto) 0.6, Eos # (Auto) 0.2, Baso # (Auto) 0.0 10/23/22 09:15: Sodium 137, Potassium 4.0, Chloride 97 L, Carbon Dioxide 26, Anion Gap 18.0 H, BUN 26 H, Creatinine 1.20, Estimated Creat Clear 81, Estimated GFR 62, Est GFR ( Amer) 76, Glucose 113 H, Calcium 9.0, Total Bilirubin 0.5, AST 29, ALT 25, Alkaline Phosphatase 106, Troponin I < 0.01, Total Protein 7.2, Albumin 4.5, Globulin 2.7, Albumin/Globulin Ratio 1.7 10/23/22 09:15: APTT 24.8 10/23/22 11:14: SARS-CoV-2 (PCR) Not detected, Influenza A Untype (PCR) Not detected, Influenza Type B (PCR) Not detected 10/23/22 12:22: Troponin I 0.02 10/23/22 13:57: Activated Clotting Time > 400 H* 10/24/22 06:30: WBC 12.0 H, RBC 4.85, Hgb 15.6, Hct 47.7, MCV 98.3 H, MCH 32.1 H, MCHC 32.7, RDW 13.1, Plt Count 199, MPV 6.9 L, Neut % (Auto) 72.8, Lymph % (Auto) 20.0, [place] % (Auto) 5.2, Eos % (Auto) 1.6, Baso % (Auto) 0.4, Neut # (Auto) 8.8 H, Lymph # (Auto) 2.4, [place] # (Auto) 0.6, Eos # (Auto) 0.2, Baso # (Auto) 0.1 10/24/22 06:30: Sodium 136, Potassium 4.4, Chloride 105, Carbon Dioxide 24, Anion Gap 11.4, BUN 20, Creatinine 1.00, Estimated Creat Clear 93, Estimated GFR 77, Est GFR ( Amer) 93 D, Glucose 108 H, Calcium 8.8, Total Bilirubin 0.7, Direct Bilirubin 0.0, Conjugated Bilirubin 0.0, Indirect Bilirubin 0.7, Unconjugated Bilirubin 0.8, AST 28, ALT 22, Alkaline Phosphatase 92, Total Protein 6.2 L, Albumin 3.8 D, Triglycerides 111, Cholesterol 147, LDL Cholesterol Direct 90.59 L, VLDL Cholesterol 22, HDL Cholesterol 36 L, Cholesterol/HDL Ratio 4.1 H 10/24/22 06:30: Sodium 135 L, Potassium 4.2, Chloride 106, Carbon Dioxide 23, Anion Gap 10.2, BUN 20, Creatinine 1.10, Estimated Creat Clear 84, Estimated GFR 69, Est GFR ( Amer) 83, Glucose 112 H, Calcium 8.7, Magnesium 2.1, Total Bilirubin 0.7, AST 34, ALT 25, Alkaline Phosphatase 93, Total Protein 6.5, Albumin 3.9, Globulin 2.6, Albumin/Globulin Ratio 1.5 I & O for Last 24 hours: Intake & Output 10/21/22 10/22/22 10/23/22 10/24/22 23:59 23:59 23:59 23:59 Intake Total 480 / 480 360 / 360 Output Total 0 / 0 Balance 480 / 480 360 / 360 Weight 173 lb 1 oz 177 lb Narrative: Telemetry strip is sinus rhythm. Constitutional Constitutional: no acute distress and average body habitus *Routine HEENT Exam Head: Present normocephalic and atraumatic ENT: Present mucous membranes moist *Routine Neck Exam Neck: Present supple, full ROM and normal carotid upstroke; Absent JVD, carotid bruit or lymphadenopathy *Routine Respiratory Exam Respiratory: Present CTA bilaterally, normal respiratory effort, able to speak in complete sentences and symmetric chest movement *Routine Cardiovascular Exam Cardiovascular: Present RRR, Normal S1 and Normal S2; Absent murmur or gallop *Routine Abdominal Exam Abdomina
--- NOTE | 2022-10-27 14:09 | CARE MANAGER ---
Spoke with patient for post-discharge phone interview, no issues noted.
== END 2022-10-24 09:15 | disposition home or self-care (01) ==
LOC: ER 11:15 → 2ND 12:07
PROVIDERS: Internal Medicine; Nurse Practitioner Family; Admitting Provider Internal Medicine Adolescent Medicine; Emergency Provider Emergency Medicine; PCP Family Medicine; Visit Provider Internal Medicine Adolescent Medicine
DX: I25.110 Atherosclerotic heart disease of native coronary artery with unstable angina pectoris (principal); I11.9 Hypertensive heart disease without heart failure; E78.2 Mixed hyperlipidemia; Z86.73 Personal history of transient ischemic attack (TIA), and cerebral infarction without residual deficits; D68.51 Activated protein C resistance; F17.210 Nicotine dependence, cigarettes, uncomplicated; Z95.5 Presence of coronary angioplasty implant and graft; Z79.02 Long term (current) use of antithrombotics/antiplatelets; Z79.899 Other long term (current) drug therapy; I25.2 Old myocardial infarction
CPT/HCPCS: 36415; 71045; 80048; 80053; 80061; 80076; 83735; 84484; 85025; 85347; 85730; 92928; 93005; 93306; 93454; 99152; 99153; 99291; C1725; C1769; C1876; C9600; C9803; G0378; J1644; Q9967; U0003; U0005

== ENCOUNTER → 2022-10-27 11:10 | Outpatient (CLI) | payer BC, OTHER, SELFPAY ==
--- NOTE | 2022-10-27 11:11 | CA_ITS ---
FINAL REPORT CLINICAL HISTORY: I25.110 - Atherosclerotic heart disease of [place] coronary. Recent heart catheterization. Right upper arm edema and pain FINDINGS: ARTERIAL DUPLEX DOPPLER RIGHT UPPER EXTREMITY PROCEDURE: Spectral and color Doppler waveform evaluation of theright upper extremity was performed. Spectral analysis was performed. FINDINGS: The right radial artery is patent without pseudoaneurysm or hematoma. Incidental note is made of thrombus of the right basilic vein. IMPRESSION: No right radial artery pseudoaneurysm or associated hematoma. Thrombus of the right basilic vein. Reviewed, Interpreted and Dictated by Jaime Enciso MD Transcribed by Meeta Giraldo Authenticated and [facility]
== END ==
PROVIDERS: PCP Family Medicine; Visit Provider Physician Assistant
DX: I25.110 Atherosclerotic heart disease of native coronary artery with unstable angina pectoris (principal); I11.9 Hypertensive heart disease without heart failure; E78.2 Mixed hyperlipidemia; M79.601 Pain in right arm
CPT/HCPCS: 93931

== ENCOUNTER → 2022-11-10 12:44 | Outpatient (CLI) | payer BC, OTHER, SELFPAY ==
--- NOTE | 2022-11-10 13:04 | CA_ITS ---
FINAL REPORT TECHNIQUE: Graded compression, spectral analysis and ultrasound images of the venous system of the right upper extremity were obtained. 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 IMPRESSION: Persistent thrombus in the right basilic vein. Reviewed, Interpreted and Dictated by Randall Subramanian III, MD Transcribed by Lesly Villaseñor Authenticated and [facility]
== END ==
PROVIDERS: PCP Family Medicine; Visit Provider Physician Assistant
DX: M79.601 Pain in right arm (principal)
CPT/HCPCS: 93971

== ENCOUNTER 2022-11-27 09:55 | Outpatient (RCR) | payer BC, OTHER, SELFPAY | END 2022-12-08 11:00 | disposition home or self-care (01) | LOC: PT 09:55 | PROVIDERS: Visit Provider Internal Medicine | DX: I25.10 Atherosclerotic heart disease of native coronary artery without angina pectoris (principal); Z95.5 Presence of coronary angioplasty implant and graft ==

== ENCOUNTER → 2022-12-08 08:30 | Outpatient (CLI) | payer BC, OTHER, SELFPAY ==
--- NOTE | 2022-12-08 08:36 | MR_ITS ---
FINAL REPORT CLINICAL HISTORY: RIGHT SHOULDER PAIN, INJURY WHILE PLAYING FOOTBALL, LANDED ON SHOULDER. INJURY IN APRIL 2022 FINDINGS: Multi planar MR imaging of the right shoulder was performed. The supraspinatus tendon appears intact. There is some increased signal noted in the distal supraspinatus tendon that suggest tendinosis. There is moderate degenerative change in the acromioclavicular joint without definite fluid identified in the subacromial subdeltoid bursa. There is marrow edema in the distal clavicle and the acromion with cystic changes present. There is irregularity of the anterior and posterior glenoid labrum which extends to the margins, seen best on image number 17 series 3. This is compatible with chronic tears of both the anterior and posterior labrum. The biceps tendon appears intact. IMPRESSION: Supraspinatus tendinosis of the distal tendon. Moderate degenerative change of the acromioclavicular joint with marrow edema in the distal clavicle and acromion process and degenerative cystic changes. Chronic tears of the anterior and posterior belem. Reviewed, Interpreted and Dictated by Orlando Solis MD Transcribed by Eulalia Ramirez Authenticated and [facility]
== END ==
PROVIDERS: PCP Family Medicine; Visit Provider Orthopaedic Surgery
DX: M25.511 Pain in right shoulder (principal)
CPT/HCPCS: 73221

== ENCOUNTER → 2022-12-09 09:11 | Outpatient (CLI) | payer BC, OTHER, SELFPAY ==
--- NOTE | 2022-12-09 09:16 | CA_ITS ---
FINAL REPORT TECHNIQUE: Graded compression, spectral analysis and ultrasound images of the venous system of the right upper extremity were obtained. CLINICAL HISTORY: thrombus right basilic vein COMPARISON: 11/10/2022 FINDINGS: The jugular vein, subclavian vein, axillary vein, brachial vein, cephalic vein and basilic venous system are fully compressible and demonstrate no evidence of thrombosis. Specifically, the previously identified thrombus of the right basilic vein has resolved. IMPRESSION: No evidence of thrombosis of the venous system of the right upper extremity. Reviewed, Interpreted and Dictated by Orlando Solis MD Transcribed by Margaret Gonsalez Authenticated and [facility]
== END ==
PROVIDERS: PCP Family Medicine; Visit Provider Physician Assistant
DX: M79.601 Pain in right arm (principal); I82.621 Acute embolism and thrombosis of deep veins of right upper extremity
CPT/HCPCS: 93971

== ENCOUNTER → 2023-01-27 11:15 | Outpatient (CLI) | payer BC, OTHER, SELFPAY ==
[2023-01-27 12:35] LABS: Basophils # 0.1 K/mm3 (0-0.2); Basophils % 0.5 % (0.1-2.0); Eosinophils # 0.1 K/mm3 (0.0-0.4); Eosinophils % 1.1 % (0.1-12.0); Hematocrit 46.2 % (42.0-52.0); Hemoglobin 14.8 g/dL (14.1-18.0); Lymphocytes # 3.1 K/mm3 (0.7-4.5); Lymphocytes % 28.3 % (10-50); Mean Corpuscular HGB Conc 32.1 g/dL (31.8-35.4); Mean Corpuscular Hemoglobin 32.5 pg (27.0-31.2); Mean Corpuscular Volume 101.2 fl (80-94); Monocytes # 0.5 K/mm3 (0.1-1.0); Monocytes % 4.6 % (1.7-9.3); Neutrophils # 7.2 K/mm3 (1.8-7.8); Neutrophils % 65.6 % (37.0-80.0); Platelet Count 227 K/mm3 (142-424); Red Blood Count 4.57 M/mm3 (4.60-6.20); Red Cell Distribution Width 13.1 % (11.5-17.5)
[2023-01-27 12:54] LABS: Hemoglobin A1C 5.6 % (4.0-6.0)
[2023-01-27 12:58] LABS: Alanine Aminotransferase 19 U/L (12-78); Alkaline Phosphatase 113 U/L (38-126); Anion Gap 12.2 mEq/L (5-15); Aspartate Amino Transferase 24 U/L (17-59); Bilirubin,Indirect 0.4 mg/dL (0.0-0.9); Bilirubin,Total 0.4 mg/dl (0.2-1.3); Bilirubin,Unconjugated 0.6 mg/dL (0.0-1.1); Blood Urea Nitrogen 15 mg/dl (9-20); Carbon Dioxide 25 mmol/L (22.0-30.0); Chloride 107 mmol/L (98-107); Chol/HDL Ratio 3.9 (1-3.5); Cholesterol 120 mg/dl (140-200); Estimated Glomerular Filt Rate 77 ml/min (>60); GFR (African American) 93 ML/MIN (>60); Glucose 93 mg/dl (74-100); HDL Cholesterol 31 mg/dl (40-60); Potassium 4.2 mmoL/L (3.5-5.1); Sodium 140 mmol/L (136-145); Total Protein,Serum 6.4 g/dl (6.3-8.2); Triglycerides 88 mg/dl (30-150); VLDL Cholesterol 18 mg/dL (0-40)
[2023-01-27 13:10] LABS: Direct LDL Cholesterol 69.47 mg/dL (100-129)
[2023-01-27 13:13] LABS: Free T4 (Free Thyroxine) 0.81 ng/dl (0.78-2.19)
[2023-01-27 13:28] LABS: Thyroid Stimulating Hormone 1.33 uIU/mL (0.465-4.68)
== END ==
PROVIDERS: PCP Family Medicine; Visit Provider Internal Medicine
DX: R06.00 Dyspnea, unspecified (principal); I25.10 Atherosclerotic heart disease of native coronary artery without angina pectoris; I11.9 Hypertensive heart disease without heart failure; E78.5 Hyperlipidemia, unspecified; E11.9 Type 2 diabetes mellitus without complications; I63.9 Cerebral infarction, unspecified
CPT/HCPCS: 36415; 80048; 80061; 80076; 83036; 84439; 84443; 85025

== ENCOUNTER 2023-07-29 11:34 | Outpatient (CLI) | payer BC, OTHER, SELFPAY ==
[2023-07-29 12:39] LABS: Alanine Aminotransferase 22 U/L (12-78); Albumin Level 4.1 g/dl (3.5-5.0); Alkaline Phosphatase 108 U/L (38-126); Aspartate Amino Transferase 28 U/L (17-59); Bilirubin,Direct 0.1 mg/dl (0.0-0.4); Bilirubin,Indirect 0.3 mg/dL (0.0-0.9); Bilirubin,Total 0.4 mg/dl (0.2-1.3); Bilirubin,Unconjugated 0.3 mg/dL (0.0-1.1); Chol/HDL Ratio 5.4 (1-3.5); Cholesterol 140 mg/dl (140-200); HDL Cholesterol 26 mg/dl (40-60); Total Protein,Serum 6.4 g/dl (6.3-8.2); Triglycerides 176 mg/dl (30-150); VLDL Cholesterol 35 mg/dL (0-40)
[2023-07-29 12:49] LABS: Direct LDL Cholesterol 84.46 mg/dL (100-129)
== END 2023-07-29 23:59 ==
PROVIDERS: PCP Family Medicine; Visit Provider Physician Assistant
DX: E78.5 Hyperlipidemia, unspecified (principal)
CPT/HCPCS: 36415; 80061; 80076

== ENCOUNTER 2024-01-28 14:29 | Emergency (ER) | payer OTHER, SELFPAY ==
[2024-01-28 14:40] VITALS: BP 109/73; PULSE 72; RESP 18; TEMP 36.7; O2SAT 95; BMI 29.0
[2024-01-28 15:00] VITALS: BP 107/70; PULSE 68; O2SAT 95
--- NOTE | 2024-01-28 15:25 | XR_ITS ---
FINAL REPORT CLINICAL HISTORY: dropped wood on toes FINDINGS: RIGHT FOOT 3 views of the right foot were obtained. There is a comminuted, nondisplaced fracture of the first distal phalanx as well as a fracture of the tuft of the second distal phalanx. No other fracture is identified. IMPRESSION: Fractures as above of the first and second phalanges. Reviewed, Interpreted and Dictated by Randall Subramanian III, MD Transcribed by Lesly Villaseñor Authenticated and [facility]
--- NOTE | 2024-01-28 15:41 | ED_ITS ---
Discharge Plan Disposition Patient Disposition: Home, Self-Care Condition: Good Prescriptions Prescriptions: New oxycodone 5 mg tablet 5 mg PO Q8H PRN (Reason: pain) Qty: 10 0RF No Action famotidine [Pepcid] 40 mg tablet 40 mg PO DAILY Qty: 30 2RF atorvastatin 80 mg tablet 80 mg PO DAILY Qty: 90 3RF metoprolol succinate 25 mg tablet extended release 24 hr See Rx Instructions .ROUTE .COMPLEX Qty: 90 0RF Dose Instruction: TAKE 1 TABLET BY MOUTH ONCE DAILY Rx Instructions: TAKE 1 TABLET BY MOUTH ONCE DAILY losartan 50 mg tablet 50 mg PO DAILY Qty: 90 0RF aspirin 81 MG tablet,delayed release (DR/EC) 81 mg PO DAILY Referrals Follow up/Referrals: Tod Valderrama MD [Primary Care Provider] - See instructions Chiara Blood DPM [Staff Physician] - See instructions Activity Restrictions/Add. Instructions Additional Instructions/Restrictions: You were evaluated in the emergency department today. Please take Tylenol and ibuprofen at home as needed for pain. I am also sending you a prescription for oxycodone to take as needed for severe pain. Do not drive or operate heavy machinery while taking narcotic pain medication. Please follow-up closely with podiatry for reassessment of your foot. Use your hard sole shoe for support and stabilization. Rest, ice, and elevate your foot to help reduce pain and swelling. Return to the emergency department for new or worsening symptoms. Clinical Impressions Clinical Impression: Fracture of great toe of right foot, Closed fracture of second toe of right foot Stand Alone Forms Stand Alone Forms: Work/School Release Instructions Patient Instructions: DI for Toe Fracture Print Language Print Language: Romanian Discharge ED Provider: Renetta Dennis General Adult HPI General Chief complaint: Extremity Injury, Lower Stated complaint: AO-Pain in 3 toes on R foot Time Seen by Provider: 01/28/24 15:08 Mode of Arrival: Ambulatory Source of Information: Patient Limitations: No Limitations Description of Symptoms (Recalled from ER Triage Doc. by RN): c/o pain on the right toes and bruising, pt states that he dropped a 16 pd piece of wood on his foot earlier today. History of Present Illness HPI narrative: This patient is a 58-year-old man with a history of CAD, hypertension, hyperlipidemia, tobacco dependence, and hypertensive heart disease presenting with concern for right foot injury. Patient reports that he dropped a heavy 16 pound piece of wood on his foot earlier today, mostly on his right first and second toes. No open wounds noted. He complains of significant pain in these toes. He denies any other concerns or injuries at this time. No numbness or tingling. He denies use of anticoagulation. On medical record review, it does look like he is on aspirin. He states he was well prior to this. He denies any known history of peripheral vascular disease. Related Data Home Medications ?Medication ?Instructions ?Recorded ?Confirmed aspirin 81 mg tablet,delayed 81 mg PO DAILY heart [facility] 07/26/18 12/08/23 release Previous Rx's ?Medication ?Instructions ?Recorded atorvastatin 80 mg tablet 80 mg PO DAILY #90 tabs 07/29/23 metoprolol succinate 25 mg See Rx Instructions .Route 12/15/23 tablet,extended release 24 hr .COMPLEX #90 tabs losartan 50 mg tablet 50 mg PO DAILY Hypertension #90 01/26/24 tabs famotidine 40 mg tablet (Pepcid) 40 mg PO DAILY #30 tabs 01/27/24 oxycodone 5 mg tablet 5 mg PO Q8H PRN pain #10 tabs 01/28/24 Allergies Allergy/AdvReac Type Severity Reaction Status Date / Time No Known Allergies Allergy Verified 01/27/24 09:01 [facility] Disclaimer: The information contained in this section may have been updated after the patient was seen, as this information can be updated by other users. Medical History Right arm pain Tobacco user Unstable angina Angina pectoris Abnormal result of cardiovascular function study Typical angina Allergies Hyperlipemia Hx of factor V Leiden mutation History of CVA (cerebrovascular accident) History of [place] (myocardial infarction) Hypertension HHD (hypertensive heart disease) CAD (coronary artery disease) Surgical History History of cardiac cath Family History Father Family history of myocardial infarction Stroke Family/Other Brain tumor Alzheimer disease Grandmother Alzheimer disease Social History Smoking Status: Current every day smoker tobacco type: cigarettes packs per day: 1 years smoked: 42 alcohol intake: current alcohol intake frequency: 0-2 drinks per day substance use type: denies use current occupational status: employed Travel in the last 8 weeks: None household members: spouse housing: house lives independently: Yes marital status: caffeine: Yes special sariah needs: No agree to transfusion: No do you feel safe at home: Yes victim of physical abuse: No victim of emotional abuse: No victim of sexual abuse: No would you like helpful sources: No ROS Obtained: Yes All systems reviewed & no additional complaints except as documented Physical Exam General General appearance: alert and in no apparent distress Head Head exam: atraumatic and normocephalic Eye Eye exam: Present normal appearance, PERRL and EOMI ENT ENT exam: Present normal exam, normal oropharynx, mucous membranes moist and normal external ear exam Neck Neck exam: Present normal inspection, full ROM and trachea midline; Absent tenderness Chest Chest inspection: Present normal inspection and symmetric chest wall rise; Absent tenderness Respiratory Respiratory exam: Present normal lung sounds bilaterally; Absent respiratory distress, wheezes, stridor or accessory muscle use Cardiovascular Cardiovascular exam: Present regular rate and normal rhythm Abdominal Exam Abdominal exam: Present soft; Absent distention, tenderness or guarding Extremities Exam Extremities exam: Present full ROM, tenderness and normal capillary refill; Absent edema Expanded Lower Extremity Exam Right: Top foot image: 2 1. significant bruising/swelling to R great 1st and 2nd toe with pain with palpation. no open wounds. neurovascularly intact with great capillary refill and sensation Back Exam Back exam: Present normal inspection and full ROM; Absent tenderness Neurological Exam Neurological exam: Present alert, oriented X3, CN II-XII intact and normal gait; Absent motor sensory deficit Psychiatric Psychiatric exam: Present normal affect and normal mood Skin Skin exam: Present warm and dry Medical Decision Making Medical Records Medical records reviewed: Yes I reviewed the patient's medical records. Qamar Inquiry Pt receiving controlled substance: Yes Qamar was queried for this patient: Yes Risks and benefits of using a controlled substance: were discussed with pt by me Vital Signs: 01/28/24 14:40 01/28/24 15:00 01/28/24 16:36 Temperature 98.0 F 97.9 F Temperature Source Oral Oral Pulse Rate 68 77 Pulse Rate [Left Radial] 72 Respiratory Rate 18 18 Blood Pressure 107/70 L 113/78 Blood Pressure [Right Arm] 109/73 L Blood Pressure Mean [Right Arm] 85 Blood Pressure Source [Right Arm] Automatic Cuff Blood Pressure Position [Right Arm] Sitting 02 Sat by Pulse Oximetry 95 95 Oxygen Delivery Method Room Air Room Air Lab Data Lab results reviewed: Yes I reviewed the patient's lab results. Orders (Tests/Meds): ORDERS Category Date Time Status Foot XR right minimum 3 views [XR foot RT min 3V] Stat Exams 01/28/24 15:25 Completed Medical Decision Narrative: In summary, this patient is a 58-year-old male presenting to the Emergency Department for evaluation of right foot injury. Differential diagnoses considered include but are not limited to fracture, contusion, strain/pain, neurovascular injury. Ruling out the most morbid conditions drove assessment. It should be noted patient's history includes CAD, hypertension, hyperlipidemia, tobacco dependence which may or may not be at goal therapy. This complicates all aspects of care by increasing patient's risk for morbidity. On exam, the patient has significant bruising to the first and second toes on the right foot. He is neurovascularly intact with no open wounds. Workup included x-rays of the right foot. I independently interpreted x-rays prior to the radiologist read and noted fractures of the distal phalanges of the first and second toes of the right foot. Please see their read for final interpretation. Ultimately since patient has closed fractures and is neurovascularly intact, I feel it is appropriate for discharge home with hard sole shoe and close podiatry follow-up. He was given prescription for pain medication to treat pain. He was given instructions for supportive management and strict return precautions. He was discharged after all questions were answered Critical Care Critical Care Time Critical Care Time: No
[2024-01-28 16:36] VITALS: BP 113/78; PULSE 77; RESP 18; TEMP 36.6; O2SAT 96
== END 2024-01-28 16:42 | disposition home or self-care (01) ==
PROVIDERS: Emergency Provider Emergency Medicine; PCP Family Medicine
DX: S92.424A Nondisplaced fracture of distal phalanx of right great toe, initial encounter for closed fracture (principal); S92.534A Nondisplaced fracture of distal phalanx of right lesser toe(s), initial encounter for closed fracture; W20.8XXA Other cause of strike by thrown, projected or falling object, initial encounter
CPT/HCPCS: 73630; 99283

== ENCOUNTER 2024-02-11 08:49 | Day surgery (SDC) | payer OTHER, SELFPAY ==
[2024-02-11] VITALS (11 sets, daily range): BP systolic 101–121; BP diastolic 65–77; PULSE 48–81; RESP 16–20; TEMP 36.8; O2SAT 97–100; BMI 29.0
--- NOTE | 2024-02-11 07:06 | IR_ITS ---
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 COMPLICATIONS None Estimated Blood Loss: Less than 10 mls TECHNIQUE One percent lidocaine used to anesthetize the right anterior aspect of the wrist. The right radial artery was accessed via the Seldinger technique. A 6 Hebrew sheath was placed in the right radial artery. 2.5 mg of Verapamil, 800 mcg of nitroglycerin, 1mg Lidocaine and 5000 U Heparin were given through the arterial sheath. The papa catheter was also used to perform left heart catheterization, left ventriculogram and selective coronary angiogram. At the end the diagnostic angiogram therapeutic Was administered giving a therapeutic ACT and the guide catheter was placed in the left main artery followed by a Choice PT extra-support wire placed in the first obtuse marginal artery. A 2 mm x 15 mm Petey frontier stent was deployed at 20 shereen in the proximal segment of the obtuse marginal artery reducing the 90% stenosis to 0%. [place]-3 flow was present before and after the procedure. Following this the guide catheter was removed from the left main artery and placed in the right coronary artery followed by the same wire placed distally in the right coronary. A 4 mm x 38 mm Petey frontier stent was initially deployed at 12 shereen in the distal right coronary artery reducing the stenosis. An additional 4.5 x 30 mm Petey frontier stent was placed proximal to the for stent yet still overlapping and deployed initially at 16 shereen. The balloon was advanced and deployed at 18 shereen in the distal segment as well as 20 shereen in the mid segment and proximal segment. Excellent angiographic results were obtained with [place]-3 flow being present before and after the procedure. In the procedure the apparatus was removed the sheath was removed and hemostasis was achieved using TR banding patient was transferred to the postop putting in stable condition ANGIOGRAPHIC RESULTS The left main artery Normal The left anterior descending artery Has a stent in the ostial to proximal segment which is widely patent with 10 to 20% concentric in-stent restenosis. There is excellent distal transitioning of the stent with diffuse 20 and 30% stenoses throughout the mid LAD. The circumflex artery Is a nondominant vessel and gives rise to a moderate-sized first obtuse marginal artery which has a proximal 90% concentric stenosis representing in-stent restenosis The right coronary artery Is a large dominant vessel has stents in the proximal to mid segment. Proximally there is 50% concentric in-stent restenosis with mid vessel 70% in-stent restenosis in an additional Denovo 70% concentric stenosis distal to the stent. The HAMMONDS ventriculogram reveals Not performed The left ventricular end-diastolic pressure Not measured IMPRESSION Coronary artery disease as described above Successful stent to the circumflex arteries first obtuse marginal artery severe disease reduced to 0% with 1 drug-eluting stent Successful stenting of the proximal mid and distal dominant right coronary artery severe disease reduced to less than 10% with 2 contiguous drug-eluting stents PLAN 1. Dual antiplatelet therapy 2. Cardiac rehabilitation 3. Avoidance of tobacco products 4. Risk factor modification 5. LDL less than 55 to achieve that high intensity statin Electronically signed by : Rajinder Chiu MD 02/11/2024 12:23:53
[2024-02-11 09:20] LABS: Basophils # 0.1 K/mm3 (0-0.2); Basophils % 1.1 % (0.1-2.0); Eosinophils # 0.1 K/mm3 (0.0-0.4); Eosinophils % 1.2 % (0.1-12.0); Hematocrit 47.9 % (42.0-52.0); Hemoglobin 15.7 g/dL (14.1-18.0); Lymphocytes % 25.6 % (10-50); Mean Corpuscular HGB Conc 32.7 g/dL (31.8-35.4); Mean Corpuscular Volume 100.8 fl (80-94); Mean Platelet Volume 7.9 fl (7.4-10.4); Monocytes # 0.4 K/mm3 (0.1-1.0); Monocytes % 3.8 % (1.7-9.3); Neutrophils # 7.9 K/mm3 (1.8-7.8); Neutrophils % 68.4 % (37.0-80.0); Platelet Count 225 K/mm3 (142-424); Red Blood Count 4.76 M/mm3 (4.60-6.20); Red Cell Distribution Width 13.7 % (11.5-17.5); White Blood Count 11.5 K/mm3 (4.8-10.8)
[2024-02-11 09:21] LABS: Chloride 106 mmol/L (98-107); Potassium 4.5 mmoL/L (3.5-5.1); Sodium 141 mmol/L (136-145)
[2024-02-11 09:24] LABS: Anion Gap 8.5 mEq/L (5-15); Blood Urea Nitrogen 19 mg/dl (9-20); Carbon Dioxide 31 mmol/L (22.0-30.0); Creatinine Clearance Estimated 93 mL/min (50-200); Estimated Glomerular Filt Rate 77 ml/min (>60); GFR (African American) 93 ML/MIN (>60)
[2024-02-11 09:25] LABS: Calcium 8.7 mg/dl (8.4-10.2); Glucose 100 mg/dl (74-100)
[2024-02-11] MEDS: diphenhydrAMINE 50MG/ML VIAL 50 MG IV (11:00)
[2024-02-11] MEDS: HEPARIN 1,000 UNITS/ML 10ML VIAL (CATH LAB) 10000 UNIT IV (11:01)
[2024-02-11] MEDS: VERAPAMIL 2.5MG/ML 2ML VIAL 2.5 MG IV (11:01)
[2024-02-11] MEDS: LIDOCAINE 1% 10ML MDV 20 ML IJ (11:01)
[2024-02-11] MEDS: NITROGLYCERIN 800MCG/8ML SYR (CATH LAB) 800 MCG IA (11:01)
[2024-02-11] MEDS: MIDAZOLAM HCL 1MG/1ML 5ML VIAL 1 MG IV (11:02)
[2024-02-11] MEDS: FENTANYL 100MCG/2ML VIAL 50 MCG IV (11:02)
[2024-02-11] MEDS: 0.9 % SODIUM CHLORIDE 500 ML 25 ML IV (11:38)
[2024-02-11] MEDS: HEPARIN 1,000 UNITS/500ML NS (CATH LAB) 3000 UNIT IV (11:38)
[2024-02-11] MEDS: PRASUGREL 10MG TAB 60 MG PO (12:19)
[2024-02-11] MEDS: IOPAMIDOL-370 (76%);100ML BOTTLE 100 ML IV (12:56)
[2024-02-11 13:17] LABS: CATHL Activated Clotting Time 277 SEC (74-125)
== END 2024-02-11 15:04 | disposition home or self-care (01) ==
PROVIDERS: PCP Family Medicine; Visit Provider Internal Medicine
DX: I11.9 Hypertensive heart disease without heart failure; R94.39 Abnormal result of other cardiovascular function study; I25.110 Atherosclerotic heart disease of native coronary artery with unstable angina pectoris; Z79.899 Other long term (current) drug therapy; F17.210 Nicotine dependence, cigarettes, uncomplicated
CPT/HCPCS: 80048; 85025; 85347; 92928; 93458; 99152; 99153; C1725; C1769; C1874; C9600; J1200; J1644; J2250; J3010; Q9967

== ENCOUNTER 2024-02-15 20:58 | Outpatient (CLI) | payer OTHER, SELFPAY ==
[2024-02-15 21:46] LABS: Basophils # 0.1 K/mm3 (0-0.2); Basophils % 0.8 % (0.1-2.0); Eosinophils # 0.2 K/mm3 (0.0-0.4); Eosinophils % 1.8 % (0.1-12.0); Hemoglobin 15.3 g/dL (14.1-18.0); Lymphocytes # 2.9 K/mm3 (0.7-4.5); Lymphocytes % 33.7 % (10-50); Mean Corpuscular HGB Conc 32.5 g/dL (31.8-35.4); Mean Corpuscular Hemoglobin 33.4 pg (27.0-31.2); Mean Corpuscular Volume 102.7 fl (80-94); Mean Platelet Volume 9.3 fl (7.4-10.4); Monocytes # 0.5 K/mm3 (0.1-1.0); Monocytes % 5.2 % (1.7-9.3); Neutrophils # 5.1 K/mm3 (1.8-7.8); Neutrophils % 58.5 % (37.0-80.0); Platelet Count 206 K/mm3 (142-424); Red Blood Count 4.57 M/mm3 (4.60-6.20); Red Cell Distribution Width 13.8 % (11.5-17.5); White Blood Count 8.7 K/mm3 (4.8-10.8)
[2024-02-15 23:07] LABS: Chloride 106 mmol/L (98-107); Potassium 4.3 mmoL/L (3.5-5.1); Sodium 138 mmol/L (136-145)
[2024-02-15 23:10] LABS: Anion Gap 9.3 mEq/L (5-15); Blood Urea Nitrogen 19 mg/dl (9-20); Calcium 8.9 mg/dl (8.4-10.2); Carbon Dioxide 27 mmol/L (22.0-30.0); Estimated Glomerular Filt Rate 77 ml/min (>60); GFR (African American) 93 ML/MIN (>60); Glucose 116 mg/dl (74-100)
== END 2024-02-15 23:59 | disposition home or self-care (01) ==
LOC: LAB.DROPOF 20:58
PROVIDERS: PCP Internal Medicine; Visit Provider Internal Medicine
DX: I25.10 Atherosclerotic heart disease of native coronary artery without angina pectoris (principal); Z95.5 Presence of coronary angioplasty implant and graft; F17.210 Nicotine dependence, cigarettes, uncomplicated
CPT/HCPCS: 80048; 85025

== ENCOUNTER 2024-02-29 08:41 | Outpatient (CLI) | payer OTHER, SELFPAY ==
--- NOTE | 2024-02-29 08:48 | XR_ITS ---
FINAL REPORT CLINICAL HISTORY: Great toe + 2nd Toe Fracture FINDINGS: RIGHT FOOT 3 views of the right foot were obtained. There is a comminuted fracture of the first distal phalanx and transverse fracture of the second distal phalanx. Visualized joint spaces are normally aligned. Soft tissues are unremarkable. IMPRESSION: Acute fractures as above. Reviewed, Interpreted and Dictated by Randall Subramanian III, MD Transcribed by Lesly Villaseñor Authenticated and [facility]
== END 2024-02-29 23:59 | disposition home or self-care (01) ==
PROVIDERS: PCP Family Medicine; Visit Provider Nurse Practitioner
DX: M79.671 Pain in right foot (principal)
CPT/HCPCS: 73630

== ENCOUNTER 2024-03-10 15:02 | Outpatient (CLI) | payer OTHER, SELFPAY ==
--- NOTE | 2024-03-10 15:03 | CT_ITS ---
FINAL REPORT TECHNIQUE: Axial CT images of the chest were obtained without contrast. Low-dose protocol was utilized. This study was performed with techniques to keep radiation doses as low as reasonably achievable (ALARA). Individualized dose reduction techniques using automated exposure control or adjustment of mA and/or kV according to the patient's size were employed. CLINICAL HISTORY: lung cancer screening current smoker 1 ppd X 30 years COMPARISON: None FINDINGS: CT CHEST WITHOUT, LOW DOSE SCREENING CT Di Vol: 2.90 mGy DLP: 113.33 mGy*cm There is no axillary, mediastinal, or hilar adenopathy. The heart size is normal. There is no pleural or pericardial effusion. The lung windows show a 6 mm ovoid focus along the right major fissure best seen on image 47 of series 4. Scarring is noted at the left lung base. Limited images of the upper abdomen demonstrate no acute findings. IMPRESSION: 6 mm right major fissure nodule. LR Category 2: 12 month follow-up low-dose chest CT is recommended per Fleischner criteria. Reviewed, Interpreted and Dictated by Orlando Solis MD Transcribed by Yoselyn Powell Authenticated and [facility]
== END 2024-03-10 23:59 | disposition home or self-care (01) ==
LOC: RAD 15:02
PROVIDERS: PCP Family Medicine; Visit Provider Family Medicine
DX: Z87.891 Personal history of nicotine dependence (principal)
CPT/HCPCS: 71271

== ENCOUNTER 2024-05-26 10:33 | Outpatient (CLI) | payer OTHER, SELFPAY ==
[2024-05-26 10:47] LABS: Basophils # 0.1 K/mm3 (0-0.2); Basophils % 1.1 % (0.1-2.0); Eosinophils # 0.1 K/mm3 (0.0-0.4); Hematocrit 48.6 % (42.0-52.0); Hemoglobin 16.5 g/dL (14.1-18.0); Lymphocytes # 2.8 K/mm3 (0.7-4.5); Lymphocytes % 25.5 % (10-50); Mean Corpuscular HGB Conc 33.8 g/dL (31.8-35.4); Mean Corpuscular Hemoglobin 33.2 pg (27.0-31.2); Mean Platelet Volume 7.4 fl (7.4-10.4); Monocytes # 0.5 K/mm3 (0.1-1.0); Monocytes % 4.7 % (1.7-9.3); Neutrophils # 7.4 K/mm3 (1.8-7.8); Neutrophils % 67.8 % (37.0-80.0); Platelet Count 246 K/mm3 (142-424); Red Blood Count 4.96 M/mm3 (4.60-6.20)
[2024-05-26 11:33] LABS: Alanine Aminotransferase 18 U/L (12-78); Albumin Level 4.3 g/dl (3.5-5.0); Alkaline Phosphatase 97 U/L (38-126); Anion Gap 10.7 mEq/L (5-15); Aspartate Amino Transferase 29 U/L (17-59); Bilirubin,Direct 0.3 mg/dl (0.0-0.4); Bilirubin,Indirect 0.4 mg/dL (0.0-0.9); Bilirubin,Total 0.7 mg/dl (0.2-1.3); Bilirubin,Unconjugated 0.4 mg/dL (0.0-1.1); Blood Urea Nitrogen 19 mg/dl (9-20); Calcium 9.7 mg/dl (8.4-10.2); Carbon Dioxide 30 mmol/L (22.0-30.0); Chloride 103 mmol/L (98-107); Chol/HDL Ratio 5.3 (1-3.5); Cholesterol 159 mg/dl (140-200); Estimated Glomerular Filt Rate 62 ml/min (>60); GFR (African American) 75 ML/MIN (>60); Glucose 97 mg/dl (74-100); HDL Cholesterol 30 mg/dl (40-60); Potassium 4.7 mmoL/L (3.5-5.1); Sodium 139 mmol/L (136-145); Total Protein,Serum 6.7 g/dl (6.3-8.2); Triglycerides 150 mg/dl (30-150); VLDL Cholesterol 30 mg/dL (0-40)
[2024-05-26 11:45] LABS: Direct LDL Cholesterol 97.34 mg/dL (100-129)
[2024-05-26 12:03] LABS: Thyroid Stimulating Hormone 1.73 uIU/mL (0.465-4.68)
== END 2024-05-26 23:59 | disposition home or self-care (01) ==
LOC: LAB 10:34
PROVIDERS: PCP Family Medicine; Visit Provider Nurse Practitioner Family
DX: I11.9 Hypertensive heart disease without heart failure (principal); I25.10 Atherosclerotic heart disease of native coronary artery without angina pectoris; E78.2 Mixed hyperlipidemia; I10 Essential (primary) hypertension; D68.51 Activated protein C resistance
CPT/HCPCS: 36415; 80048; 80061; 80076; 83735; 84439; 84443; 85025

== ENCOUNTER 2024-09-30 12:01 | Emergency (ER) | payer OTHER, SELFPAY ==
[2024-09-30] VITALS (13 sets, daily range): BP systolic 99–123; BP diastolic 64–79; PULSE 55–64; RESP 12–20; TEMP 36.6–36.7; O2SAT 96–100; BMI 29.7
--- NOTE | 2024-09-30 12:04 | ECG_ITS ---
APPROVED REPORT Exam: Resting ECG HR:58 bpm ECG Measurements Heart Rate 58 AXES AL 199 P 43 QRSd 101 QRS 44 QT 406 T 42 QTc 402 Conclusion SINUS BRADYCARDIA POSSIBLE INFERIOR MYOCARDIAL INFARCTION , PROBABLY OLD [30 ms Q WAVE IN II/aVF] BORDERLINE ECG UNCONFIRMED REPORT Electronically signed by : ELEONORA RINCON, 10/02/2024 03:41:54
--- NOTE | 2024-09-30 12:08 | ED_ITS ---
Discharge Plan Disposition Patient Disposition: Home, Self-Care Condition: Good Prescriptions Prescriptions: New losartan 25 mg tablet 25 mg PO DAILY Qty: 90 0RF No Action nitroglycerin [Nitrostat] 0.4 mg tablet, sublingual 0.4 mg sublingual Q5M PRN (Reason: chest pain) Qty: 20 0RF Rx Instructions: do not exceed 3 doses per episode atorvastatin 80 mg tablet 80 mg PO DAILY Qty: 90 3RF Repatha SureClick 140 mg/mL pen injector 140 mg SQ Q2W Qty: 2 5RF bupropion HCl 150 mg tablet extended release 24 hr See Rx Instructions .ROUTE .COMPLEX Qty: 30 2RF Dose Instruction: TAKE 1 TABLET BY MOUTH DAILY Rx Instructions: TAKE 1 TABLET BY MOUTH DAILY metoprolol succinate 25 mg tablet extended release 24 hr See Rx Instructions .ROUTE .COMPLEX Qty: 90 0RF Dose Instruction: TAKE 1 TABLET BY MOUTH ONCE DAILY Rx Instructions: TAKE 1 TABLET BY MOUTH ONCE DAILY losartan 50 mg tablet 50 mg PO DAILY Qty: 90 0RF famotidine [Pepcid] 40 mg tablet 40 mg PO DAILY Qty: 30 2RF prasugrel HCl [Effient] 10 mg Tablet 10 mg PO DAILY 30 Days Qty: 30 6RF aspirin 81 MG tablet,delayed release (DR/EC) 81 mg PO DAILY Referrals Follow up/Referrals: Tod Valderrama MD [Primary Care Provider] - See instructions Activity Restrictions/Add. Instructions Additional Instructions/Restrictions: I have sent in a prescription in for your losartan and we have decreased the dose to 25 mg daily. Please take your blood pressure at least once to 2 times a day preferably once in the morning and once in the evening. Please follow-up with cardiology at the beginning of next week. Cardiothoracic surgery will contact you to set up a clinic appointment likely Thursday or Thursday of next week. If you have any continued new or worsening signs or symptoms return to the ER as needed. Clinical Impressions Clinical Impression: Near syncope, Chest pain Hypotension Qualifiers: Hypotension type: hypotension due to drug Qualified Code(s): I95.2 - Hypotension due to drugs Print Language Print Language: Palauan Discharge ED Provider: Marck Ribera [facility] <LIOR Dawson - Last Filed: 09/30/24 16:22> General Chief Complaint: Chest Pain Stated Complaint: Chest Pain Time Seen by Provider: 09/30/24 12:07 History of Present Illness HPI narrative: Patient presents for evaluation of dizziness and chest pain. Patient states that he got out of bed felt dizzy and lost his balance falling to the right side. He did not suffer any injury however shortly thereafter began having substernal chest pain. He does have a cardiovascular history history of previous stents and has nitro for anginal type pain which he took. After his initial nitro his chest pain is currently a 1 in the ER. He denies any headache fever chills hemoptysis hematochezia melena hematemesis hematuria current dizziness focal neurologic deficits shortness of breath. Pain is radiating to his back. Related Data Home Medications ?Medication ?Instructions ?Recorded ?Confirmed aspirin 81 mg tablet,delayed 81 mg PO DAILY heart health 07/26/18 05/26/24 release Previous Rx's ?Medication ?Instructions ?Recorded atorvastatin 80 mg tablet 80 mg PO DAILY #90 tabs 07/29/23 prasugrel HCl 10 mg tablet 10 mg PO DAILY 30 days #30 tabs 02/11/24 (Effient) nitroglycerin 0.4 mg sublingual 0.4 mg sublingual Q5M PRN chest 02/26/24 tablet (Nitrostat) pain #20 tabs evolocumab 140 mg/mL subcutaneous 140 mg SQ Q2W #2 mL 05/26/24 pen injector (Repathaster Nesbittick) bupropion HCl 150 mg 24 hr tablet, See Rx Instructions .Route 06/17/24 extended release .COMPLEX #30 tabs metoprolol succinate 25 mg See Rx Instructions .Route 06/30/24 tablet,extended release 24 hr .COMPLEX #90 tabs losartan 50 mg tablet 50 mg PO DAILY Hypertension #90 08/18/24 tabs famotidine 40 mg tablet (Pepcid) 40 mg PO DAILY #30 tabs 09/13/24 losartan 25 mg tablet 25 mg PO DAILY #90 tabs 09/30/24 Allergies Allergy/AdvReac Type Severity Reaction Status Date / Time No Known Allergies Allergy Verified 05/26/24 09:49 REPLACED BY [facility] <LIOR Dawson - Last Filed: 09/30/24 16:22> REPLACED BY [facility] Disclaimer: The information contained in this section may have been updated after the patient was seen, as this information can be updated by other users. Medical History Right arm pain Tobacco user Unstable angina Angina pectoris Abnormal result of cardiovascular function study Typical angina Allergies Hyperlipemia Hx of factor V Leiden mutation History of CVA (cerebrovascular accident) History of CT (myocardial infarction) Hypertension HHD (hypertensive heart disease) CAD (coronary artery disease) Surgical History History of cardiac cath Family History Father Family history of myocardial infarction Stroke Family/Other Brain tumor Alzheimer disease Grandmother Alzheimer disease Social History Smoking Status: Current every day smoker tobacco type: cigarettes packs per day: 1 years smoked: 42 alcohol intake: current alcohol intake frequency: 0-2 drinks per day substance use type: denies use current occupational status: employed Travel in the last 8 weeks: None household members: spouse housing: house lives independently: Yes marital status: caffeine: Yes special sariah needs: No agree to transfusion: No do you feel safe at home: Yes victim of physical abuse: No victim of emotional abuse: No victim of sexual abuse: No would you like helpful sources: No Have you lived/traveled outside [place] in past 30 days?: No Contact w/someone who lives/traveled outside US past 30 days?: No Exposure to someone with infectious disease in past 14 days?: No Do you have a fever (greater than 100.4 F or 38 C)?: No Have you tested positive for COVID-19: No Exposed to someone with COVID-19 in past 14 days?: No Do you have a sore throat?: No Do you have a cough?: No Do you have any weakness?: No Do you have any diarrhea?: No Are you experiencing any unusual bleeding?: No Do you have any muscle aches/pain?: No Do you have any abdominal pain?: No Are you experiencing loss of taste or smell?: No Other Medical History Have you received the Flu Vaccine for this season: No Have you received the Pneumonia Vaccine: No <LIOR Dawson - Last Filed: 09/30/24 16:22> ROS Obtained: Yes Systems reviewed as appropriate & no additional complaints except as documented Physical Exam <LIOR Dawson - Last Filed: 09/30/24 16:22> General General appearance: alert and in no apparent distress Respiratory Respiratory exam: Present normal lung sounds bilaterally Cardiovascular Cardiovascular exam: Present regular rate Neurological Exam Neurological exam: Present alert and oriented X3 HEART Score <LIOR Dawson - Last Filed: 09/30/24 16:22> HEART Score HEART Score assessment performed?: Yes History (anamnesis): Slightly suspicious ECG: Normal Age: 45-65 years Risk factors: Atherosclerosis history Troponin: </= normal limit HEART Score: 3 <Marck Ribera MD - Last Filed: 09/30/24 15:28> HEART Score HEART Score: 3 <Ross Smith MD - Last Filed: 09/30/24 17:51> HEART Score HEART Score: 3 Critical Care <Marck Ribera MD - Last Filed: 09/30/24 15:28> Critical Care Time Critical Care Time: No Medical Decision Making <LIOR Dawson - Last Filed: 09/30/24 16:22> Medical Records Medical records reviewed: Yes I reviewed the patient's medical records. Qamar Inquiry Pt receiving controlled substance: No Vital Signs Vital Signs: 09/30/24 12:14 09/30/24 12:26 09/30/24 12:31 Temperature 98.0 F Temperature Source Oral Pulse Rate 59 L 62 Pulse Rate [Left Radial] 59 L Respiratory Rate 16 20 Blood Pressure 103/67 L Blood Pressure [Right Arm] 119/77 Blood Pressure Mean Blood Pressure Mean [Right Arm] 91 Blood Pressure Source [Right Arm] Automatic Cuff Blood Pressure Position [Right Arm] Sitting 02 Sat by Pulse Oximetry 100 97 Oxygen Delivery Method Room Air Room Air 09/30/24 13:07 09/30/24 13:25 09/30/24 13:30 Temperature Temperature Source Pulse Rate 61 64 61 Pulse Rate [Left Radial] Respiratory Rate 16 19 20 Blood Pressure 99/64 L 103/71 L 102/68 L Blood Pressure [Right Arm] Blood Pressure Mean 78 75 Blood Pressure Mean [Right Arm] Blood Pressure Source [Right Arm] Blood Pressure Position [Right Arm] 02 Sat by Pulse Oximetry 99 99 99 Oxygen Delivery Method Room Air 09/30/24 14:01 09/30/24 14:30 09/30/24 15:00 Temperature Temperature Source Pulse Rate 61 60 55 L Pulse Rate [Left Radial] Respiratory Rate 18 12 18 Blood Pressure 106/69 L 103/71 L 112/79 Blood Pressure [Right Arm] Blood Pressure Mean 81 Blood Pressure Mean [Right Arm] Blood Pressure Source [Right Arm] Blood Pressure Position [Right Arm] 02 Sat by Pulse Oximetry 100 100 99 Oxygen Delivery Method Room Air Room Air 09/30/24 15:30 09/30/24 16:00 09/30/24 16:30 Temperature Temperature Source Pulse Rate 57 L 57 L 59 L Pulse Rate [Left Radial] Respiratory Rate 18 14 16 Blood Pressure 115/75 123/79 119/78 Blood Pressure [Right Arm] Blood Pressure Mean 85 Blood Pressure Mean [Right Arm] Blood Pressure Source [Right Arm] Blood Pressure Position [Right Arm] 02 Sat by Pulse Oximetry 99 98 96 Oxygen Delivery Method Room Air Room Air 09/30/24 16:42 Temperature 98 F Temperature Source Pulse Rate 59 L Pulse Rate [Left Radial] Respiratory Rate 18 Blood Pressure 119/78 Blood Pressure [Right Arm] Blood Pressure Mean Blood Pressure Mean [Right Arm] Blood Pressure Source [Right Arm] Blood Pressure Position [Right Arm] 02 Sat by Pulse Oximetry Oxygen Delivery Method Lab Data Lab results reviewed: Yes I reviewed the patient's lab results. Labs: Lab Results 09/30/24 12:14: WBC 6.0, RBC 4.56 L, Hgb 14.8, Hct 42.7, MCV 93.6, MCH 32.5 H, MCHC 34.7, RDW 11.9, Plt Count 200, MPV 9.2, Neut % (Auto) 53.0, Lymph % (Auto) 37.6, Bollinger % (Auto) 7.0, Eos % (Auto) 1.5, Baso % (Auto) 0.7, Neut # (Auto) 3.2, Lymph # (Auto) 2.3, Bollinger # (Auto) 0.4, Eos # (Auto) 0.1, Baso # (Auto) 0.0, PT 11.3, INR 1.01, Sodium 139, Potassium 3.9, Chloride 105, Carbon Dioxide 29, Anion Gap 8.9, BUN 15, Creatinine 1.30 H, Estimated Creat Clear 75, Estimated GFR 57 L, Est GFR ( Amer) 68, Glucose 110 H, Calcium 8.8, Magnesium 1.9, Total Bilirubin 0.4, AST 29, ALT 17, Alkaline Phosphatase 102, Troponin I < 0.01, NT-Pro-B Natriuret Pep 119, Total Protein 6.7, Albumin 3.9, Globulin 2.8, Albumin/Globulin Ratio 1.4, Lipase 113, Procalcitonin 0.090, HCV Ab KATIE w/Rflx PCR Qn Negative, HIV Ag/Ab Combo Qual Negative 09/30/24 15:40: Troponin I < 0.01 09/30/24 12:14 09/30/24 12:14 Response Orders (Tests/Meds): ED MEDICATIONS Discontinued Medications Generic Name Dose Route Start Last Admin Trade Name Freq PRN Reason Stop Dose Admin Sodium Chloride 1,000 mls @ 999 mls/hr 09/30/24 12:08 09/30/24 12:32 Sod Chlor 0.9% 1000ml Bag IV 09/30/24 13:08 999 mls/hr .Q1H1M ONE Administration Sodium Chloride 1,000 mls @ 999 mls/hr 09/30/24 13:28 09/30/24 13:45 Sod Chlor 0.9% 1000ml Bag IV 09/30/24 14:28 999 mls/hr .Q1H1M ONE Administration Iopamidol 100 ml 09/30/24 12:45 09/30/24 12:46 Iopamidol-370 (76%);100ml Bottle IV 09/30/24 12:46 100 ml ONCE ONE Administration Ondansetron HCl 4 mg 09/30/24 12:08 09/30/24 12:32 Ondansetron 4mg/2ml Vial IV 09/30/24 12:09 4 mg ONCE ONE Administration Sodium Chloride 40 ml 09/30/24 12:45 09/30/24 12:46 0.9 % Sodium Chloride 50 Ml Vial IV 09/30/24 12:46 40 ml ONCE ONE Administration Sodium Chloride 10 ml 09/30/24 12:45 09/30/24 12:46 Sodium Chloride 0.9% 10ml Syr (Rad Only) IV 09/30/24 12:46 10 ml ONCE ONE Administration ORDERS Category Date Time Status CT angio chest - dissection Stat Cat Scan 09/30/24 12:09 Completed BNP [NT Pro Brain Natriuretic Pep.] Stat Lab 09/30/24 12:14 Completed CBC w/Auto Diff [Complete Blood Count Auto Diff] Stat Lab 09/30/24 12:14 Completed CMP [Comprehensive Metabolic Panel] Stat Lab 09/30/24 12:14 Completed HIV Combo Stat Lab 09/30/24 12:14 Completed Hepatitis C Ab Qual. W/ RFX Stat Lab 09/30/24 12:14 Completed INR [Prothrombin Time INR] Stat Lab 09/30/24 12:14 Completed Lipase Stat Lab 09/30/24 12:14 Completed Magnesium Stat Lab 09/30/24 12:14 Completed Procalcitonin Stat Lab 09/30/24 12:14 Completed Trop I [Troponin I] Stat Lab 09/30/24 12:14 Completed Troponin I Q3H Lab 09/30/24 15:40 Completed MDM Narrative Medical Decision Narrative: In summary patient is a 59-year-old male who presents to the emergency department for evaluation of chest pain. Patient is hemodynamically stable with normal sinus rhythm on the bedside monitor upon arrival, afebrile. Physical exam is remarkable for clear breath sounds with no increased work of breathing adventitious sounds or inventory coordinator muscle use, no reproducible chest pain on palpation, heart sounds S1-S2 regular rate and rhythm without murmurs gallops rubs or thrills no dependent edema, abdomen soft nontender no rebound or guarding no rigidity.. Differential diagnosis includes ACS versus angina versus vasovagal syncope versus PE etc. Initial workup will be conducted with hematologic labs twelve-lead EKG CTA dissection protocol. Initial interventions include aspirin. Initial workup reviewed by me and his hematologic labs are significant for normal white count normal H&H no neutrophilic shift slightly elevated creatinine of 1.3 GFR 57 both of which are increased from his normal baseline of 1 and 77 respectively initial troponin is undetectable at less than 0.01 NT proBNP is 119 and the remainder of his hematologic labs are nonactionable. My informal interpretation of his CT PE protocol shows no evidence of thrombus or acute intrathoracic process prior to radiology read. 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 Given this I had interactive discussion with Dr. Schmid CT surgeon at the [facility] and he recommended follow-up in their clinic and they will arrange that with the patient directly.. Upon repeat evaluation patient reports that his chest pain has gone however I noted that the patient's blood pressure is 99/64. Patient states that when he took his blood pressure today after his initial dizziness it was 91. Will give an additional liter bolus while we await second troponin. Given this the patient was placed in observation status at 1330. Medical necessity for observational status is serial troponins. The patient was provided serial reevaluations continuous cardiac monitoring and pulse oximetry while awaiting results. Patient's second troponin is also undetectable. Patient's blood pressure has improved to 123/79 after fluid bolus. Patient reports the chest pain is resolved. I had interactive discussion with Dr. Chiu regarding patient's presentation BOSS and patient management and he recommended decreasing the dose of his losartan to 25 mg once a day and they will see the patient in clinic next week.. Because of these results I believe the patient can be discharged with follow-up with cardiology as scheduled. We have referred the patient to cardiothoracic surgery at [facility] and they will contact the patient to establish an appointment for his ascending aortic aneurysm. Total time in observation was 3 hours. Marck Ribera: I was consulted by the MONSERRAT, and we discussed the complexity of the problems being addressed. I approved the treatment and management plan for this patient's care in the emergency department, thus performing a substantive portion of the medical decision making. I agree with initial workup, patient's hematologic labs are nonactionable he is pending serial troponin, CTA imaging remarkable for fusiform aneurysm for which the case was discussed with [facility] they will arrange outpatient follow-up. Second plan repeat evaluation pending at time of transfer of care. <Marck Ribera MD - Last Filed: 09/30/24 15:28> Vital Signs Vital Signs: 09/30/24 12:14 09/30/24 12:26 09/30/24 12:31 Temperature 98.0 F Temperature Source Oral Pulse Rate 59 L 62 Pulse Rate [Left Radial] 59 L Respiratory Rate 16 20 Blood Pressure 103/67 L Blood Pressure [Right Arm] 119/77 Blood Pressure Mean Blood Pressure Mean [Right Arm] 91 Blood Pressure Source [Right Arm] Automatic Cuff Blood Pressure Position [Right Arm] Sitting 02 Sat by Pulse Oximetry 100 97 Oxygen Delivery Method Room Air Room Air 09/30/24 13:07 09/30/24 13:25 09/30/24 13:30 Temperature Temperature Source Pulse Rate 61 64 61 Pulse Rate [Left Radial] Respiratory Rate 16 19 20 Blood Pressure 99/64 L 103/71 L 102/68 L Blood Pressure [Right Arm] Blood Pressure Mean 78 75 Blood Pressure Mean [Right Arm] Blood Pressure Source [Right Arm] Blood Pressure Position [Right Arm] 02 Sat by Pulse Oximetry 99 99 99 Oxygen Delivery Method Room Air 09/30/24 14:01 09/30/24 14:30 09/30/24 15:00 Temperature Temperature Source Pulse Rate 61 60 55 L Pulse Rate [Left Radial] Respiratory Rate 18 12 18 Blood Pressure 106/69 L 103/71 L 112/79 Blood Pressure [Right Arm] Blood Pressure Mean 81 Blood Pressure Mean [Right Arm] Blood Pressure Source [Right Arm] Blood Pressure Position [Right Arm] 02 Sat by Pulse Oximetry 100 100 99 Oxygen Delivery Method Room Air Room Air 09/30/24 15:30 09/30/24 16:00 09/30/24 16:30 Temperature Temperature Source Pulse Rate 57 L 57 L 59 L Pulse Rate [Left Radial] Respiratory Rate 18 14 16 Blood Pressure 115/75 123/79 119/78 Blood Pressure [Right Arm] Blood Pressure Mean 85 Blood Pressure Mean [Right Arm] Blood Pressure Source [Right Arm] Blood Pressure Position [Right Arm] 02 Sat by Pulse Oximetry 99 98 96 Oxygen Delivery Method Room Air Room Air 09/30/24 16:42 Temperature 98 F Temperature Source Pulse Rate 59 L Pulse Rate [Left Radial] Respiratory Rate 18 Blood Pressure 119/78 Blood Pressure [Right Arm] Blood Pressure Mean Blood Pressure Mean [Right Arm] Blood Pressure Source [Right Arm] Blood Pressure Position [Right Arm] 02 Sat by Pulse Oximetry Oxygen Delivery Method Lab Data Labs: Lab Results 09/30/24 12:14: WBC 6.0, RBC 4.56 L, Hgb 14.8, Hct 42.7, MCV 93.6, MCH 32.5 H, MCHC 34.7, RDW 11.9, Plt Count 200, MPV 9.2, Neut % (Auto) 53.0, Lymph % (Auto) 37.6, Bollinger % (Auto) 7.0, Eos % (Auto) 1.5, Baso % (Auto) 0.7, Neut # (Auto) 3.2, Lymph # (Auto) 2.3, Bollinger # (Auto) 0.4, Eos # (Auto) 0.1, Baso # (Auto) 0.0, PT 11.3, INR 1.01, Sodium 139, Potassium 3.9, Chloride 105, Carbon Dioxide 29, Anion Gap 8.9, BUN 15, Creatinine 1.30 H, Estimated Creat Clear 75, Estimated GFR 57 L, Est GFR ( Amer) 68, Glucose 110 H, Calcium 8.8, Magnesium 1.9, Total Bilirubin 0.4, AST 29, ALT 17, Alkaline Phosphatase 102, Troponin I < 0.01, NT-Pro-B Natriuret Pep 119, Total Protein 6.7, Albumin 3.9, Globulin 2.8, Albumin/Globulin Ratio 1.4, Lipase 113, Procalcitonin 0.090, HCV Ab KATIE w/Rflx PCR Qn Negative, HIV Ag/Ab Combo Qual Negative 09/30/24 15:40: Troponin I < 0.01 Response Orders (Tests/Meds): ED MEDICATIONS Discontinued Medications Generic Name Dose Route Start Last Admin Trade Name Freq PRN Reason Stop Dose Admin Sodium Chloride 1,000 mls @ 999 mls/hr 09/30/24 12:08 09/30/24 12:32 Sod Chlor 0.9% 1000ml Bag IV 09/30/24 13:08 999 mls/hr .Q1H1M ONE Administration Sodium Chloride 1,000 mls @ 999 mls/hr 09/30/24 13:28 09/30/24 13:45 Sod Chlor 0.9% 1000ml Bag IV 09/30/24 14:28 999 mls/hr .Q1H1M ONE Administration Iopamidol 100 ml 09/30/24 12:45 09/30/24 12:46 Iopamidol-370 (76%);100ml Bottle IV 09/30/24 12:46 100 ml ONCE ONE Administration Ondansetron HCl 4 mg 09/30/24 12:08 09/30/24 12:32 Ondansetron 4mg/2ml Vial IV 09/30/24 12:09 4 mg ONCE ONE Administration Sodium Chloride 40 ml 09/30/24 12:45 09/30/24 12:46 0.9 % Sodium Chloride 50 Ml Vial IV 09/30/24 12:46 40 ml ONCE ONE Administration Sodium Chloride 10 ml 09/30/24 12:45 09/30/24 12:46 Sodium Chloride 0.9% 10ml Syr (Rad Only) IV 09/30/24 12:46 10 ml ONCE ONE Administration ORDERS Category Date Time Status CT angio chest - dissection Stat Cat Scan 09/30/24 12:09 Completed BNP [NT Pro Brain Natriuretic Pep.] Stat Lab 09/30/24 12:14 Completed CBC w/Auto Diff [Complete Blood Count Auto Diff] Stat Lab 09/30/24 12:14 Completed CMP [Comprehensive Metabolic Panel] Stat Lab 09/30/24 12:14 Completed HIV Combo Stat Lab 09/30/24 12:14 Completed Hepatitis C Ab Qual. W/ RFX Stat Lab 09/30/24 12:14 Completed INR [Prothrombin Time INR] Stat Lab 09/30/24 12:14 Completed Lipase Stat Lab 09/30/24 12:14 Completed Magnesium Stat Lab 09/30/24 12:14 Completed Procalcitonin Stat Lab 09/30/24 12:14 Completed Trop I [Troponin I] Stat Lab 09/30/24 12:14 Completed Troponin I Q3H Lab 09/30/24 15:40 Completed ECG Data Tracing #1: ECG Narrative: Independently interpreted by me rate is 58, rhythm is regular, axis is normal, no ST elevation in anatomical contiguous leads, QTc 402. Tracing #2: ECG Narrative: Independently interpreted by me rate is 55, rhythm is regular, axis is normal, no ST elevation in anatomical contiguous leads, QTc 401. MDM Narrative Medical Decision Narrative: In summary patient is a 59-year-old male who presents to the emergency department for evaluation of chest pain. Patient is hemodynamically stable with normal sinus rhythm on the bedside monitor upon arrival, afebrile. Physical exam is remarkable for clear breath sounds with no increased work of breathing adventitious sounds or inventory coordinator muscle use, no reproducible chest pain on palpation, heart sounds S1-S2 regular rate and rhythm without murmurs gallops rubs or thrills no dependent edema, abdomen soft nontender no rebound or guarding no rigidity.. Differential diagnosis includes ACS versus angina versus vasovagal syncope versus PE etc. Initial workup will be conducted with hematologic labs twelve-lead EKG CTA dissection protocol. Initial interventions include aspirin. Initial workup reviewed by me and his hematologic labs are significant for normal white count normal H&H no neutrophilic shift slightly elevated creatinine of 1.3 GFR 57 both of which are increased from his normal baseline of 1 and 77 respectively initial troponin is undetectable at less than 0.01 NT proBNP is 119 and the remainder of his hematologic labs are nonactionable. My informal interpretation of his CT PE protocol shows no evidence of thrombus or acute intrathoracic process prior to radiology read.. Upon repeat evaluation patient reports that his chest pain has gone however I noted that the patient's blood pressure is 99/64. Patient states that when he took his blood pressure today after his initial dizziness it was 91. Will give an additional liter bolus while we await second troponin. Given this the patient was placed in observation status at 1330. Medical necessity for observational status is serial troponins. The patient was provided serial reevaluations continuous cardiac monitoring and pulse oximetry while awaiting results. [Results of testing during observation remarkable for:]. [Because of these results I feel the patient can be discharged with follow-up with her PCP versus I feel the patient requires admission due to]. Total time in observation was [total time]. Marck Ribera: I was consulted by the MONSERRAT, and we discussed the complexity of the problems being addressed. I approved the treatment and management plan for this patient's care in the emergency department, thus performing a substantive portion of the medical decision making. I agree with initial workup, patient's hematologic labs are nonactionable he is pending serial troponin, CTA imaging remarkable for fusiform aneurysm for which the case was discussed with [facility] they will arrange outpatient follow-up. Second plan repeat evaluation pending at time of transfer of care. <Ross Smith MD - Last Filed: 09/30/24 17:51> Vital Signs Vital Signs: 09/30/24 12:14 09/30/24 12:26 09/30/24 12:31 Temperature 98.0 F Temperature Source Oral Pulse Rate 59 L 62 Pulse Rate [Left Radial] 59 L Respiratory Rate 16 20 Blood Pressure 103/67 L Blood Pressure [Right Arm] 119/77 Blood Pressure Mean Blood Pressure Mean [Right Arm] 91 Blood Pressure Source [Right Arm] Automatic Cuff Blood Pressure Position [Right Arm] Sitting 02 Sat by Pulse Oximetry 100 97 Oxygen Delivery Method Room Air Room Air 09/30/24 13:07 09/30/24 13:25 09/30/24 13:30 Temperature Temperature Source Pulse Rate 61 64 61 Pulse Rate [Left Radial] Respiratory Rate 16 19 20 Blood Pressure 99/64 L 103/71 L 102/68 L Blood Pressure [Right Arm] Blood Pressure Mean 78 75 Blood Pressure Mean [Right Arm] Blood Pressure Source [Right Arm] Blood Pressure Position [Right Arm] 02 Sat by Pulse Oximetry 99 99 99 Oxygen Delivery Method Room Air 09/30/24 14:01 09/30/24 14:30 09/30/24 15:00 Temperature Temperature Source Pulse Rate 61 60 55 L Pulse Rate [Left Radial] Respiratory Rate 18 12 18 Blood Pressure 106/69 L 103/71 L 112/79 Blood Pressure [Right Arm] Blood Pressure Mean 81 Blood Pressure Mean [Right Arm] Blood Pressure Source [Right Arm] Blood Pressure Position [Right Arm] 02 Sat by Pulse Oximetry 100 100 99 Oxygen Delivery Method Room Air Room Air 09/30/24 15:30 09/30/24 16:00 09/30/24 16:30 Temperature Temperature Source Pulse Rate 57 L 57 L 59 L Pulse Rate [Left Radial] Respiratory Rate 18 14 16 Blood Pressure 115/75 123/79 119/78 Blood Pressure [Right Arm] Blood Pressure Mean 85 Blood Pressure Mean [Right Arm] Blood Pressure Source [Right Arm] Blood Pressure Position [Right Arm] 02 Sat by Pulse Oximetry 99 98 96 Oxygen Delivery Method Room Air Room Air 09/30/24 16:42 Temperature 98 F Temperature Source Pulse Rate 59 L Pulse Rate [Left Radial] Respiratory Rate 18 Blood Pressure 119/78 Blood Pressure [Right Arm] Blood Pressure Mean Blood Pressure Mean [Right Arm] Blood Pressure Source [Right Arm] Blood Pressure Position [Right Arm] 02 Sat by Pulse Oximetry Oxygen Delivery Method Lab Data Labs: Lab Results 09/30/24 12:14: WBC 6.0, RBC 4.56 L, Hgb 14.8, Hct 42.7, MCV 93.6, MCH 32.5 H, MCHC 34.7, RDW 11.9, Plt Count 200, MPV 9.2, Neut % (Auto) 53.0, Lymph % (Auto) 37.6, Bollinger % (Auto) 7.0, Eos % (Auto) 1.5, Baso % (Auto) 0.7, Neut # (Auto) 3.2, Lymph # (Auto) 2.3, [place] # (Auto) 0.4, Eos # (Auto) 0.1, Baso # (Auto) 0.0, PT 11.3, INR 1.01, Sodium 139, Potassium 3.9, Chloride 105, Carbon Dioxide 29, Anion Gap 8.9, BUN 15, Creatinine 1.30 H, Estimated Creat Clear 75, Estimated GFR 57 L, Est GFR ( Amer) 68, Glucose 110 H, Calcium 8.8, Magnesium 1.9, Total Bilirubin 0.4, AST 29, ALT 17, Alkaline Phosphatase 102, Troponin I < 0.01, NT-Pro-B Natriuret Pep 119, Total Protein 6.7, Albumin 3.9, Globulin 2.8, Albumin/Globulin Ratio 1.4, Lipase 113, Procalcitonin 0.090, HCV Ab KATIE w/Rflx PCR Qn Negative, HIV Ag/Ab Combo Qual Negative 09/30/24 15:40: Troponin I < 0.01 Response Orders (Tests/Meds): ED MEDICATIONS Discontinued Medications Generic Name Dose Route Start Last Admin Trade Name Freq PRN Reason Stop Dose Admin Sodium Chloride 1,000 mls @ 999 mls/hr 09/30/24 12:08 09/30/24 12:32 Sod Chlor 0.9% 1000ml Bag IV 09/30/24 13:08 999 mls/hr .Q1H1M ONE Administration Sodium Chloride 1,000 mls @ 999 mls/hr 09/30/24 13:28 09/30/24 13:45 Sod Chlor 0.9% 1000ml Bag IV 09/30/24 14:28 999 mls/hr .Q1H1M ONE Administration Iopamidol 100 ml 09/30/24 12:45 09/30/24 12:46 Iopamidol-370 (76%);100ml Bottle IV 09/30/24 12:46 100 ml ONCE ONE Administration Ondansetron HCl 4 mg 09/30/24 12:08 09/30/24 12:32 Ondansetron 4mg/2ml Vial IV 09/30/24 12:09 4 mg ONCE ONE Administration Sodium Chloride 40 ml 09/30/24 12:45 09/30/24 12:46 0.9 % Sodium Chloride 50 Ml Vial IV 09/30/24 12:46 40 ml ONCE ONE Administration Sodium Chloride 10 ml 09/30/24 12:45 09/30/24 12:46 Sodium Chloride 0.9% 10ml Syr (Rad Only) IV 09/30/24 12:46 10 ml ONCE ONE Administration ORDERS Category Date Time Status CT angio chest - dissection Stat Cat Scan 09/30/24 12:09 Completed BNP [NT Pro Brain Natriuretic Pep.] Stat Lab 09/30/24 12:14 Completed CBC w/Auto Diff [Complete Blood Count Auto Diff] Stat Lab 09/30/24 12:14 Completed CMP [Comprehensive Metabolic Panel] Stat Lab 09/30/24 12:14 Completed HIV Combo Stat Lab 09/30/24 12:14 Completed Hepatitis C Ab Qual. W/ RFX Stat Lab 09/30/24 12:14 Completed INR [Prothrombin Time INR] Stat Lab 09/30/24 12:14 Completed Lipase Stat Lab 09/30/24 12:14 Completed Magnesium Stat Lab 09/30/24 12:14 Completed Procalcitonin Stat Lab 09/30/24 12:14 Completed Trop I [Troponin I] Stat Lab 09/30/24 12:14 Completed Troponin I Q3H Lab 09/30/24 15:40 Completed
--- NOTE | 2024-09-30 12:09 | CT_ITS ---
FINAL REPORT TECHNIQUE: Thin section axial CT with contrast with multiplanar reconstruction This study was performed with techniques to keep radiation doses as low as reasonably achievable, (ALARA). Individualized dose reduction techniques using automated exposure control or adjustment of mA and/or kV according to the patient''s size were employed. CLINICAL HISTORY: Chest pain radiating to back, dizziness, hx of mi COMPARISON: 03/10/2024 FINDINGS: Pulmonary vessels enhance in normal fashion without evidence of embolism. 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 There is no evidence of dissection. There is minimal dependent atelectasis without edema or pneumonia. Perifissural lymph node is seen in the right midlung, unchanged. There is no significant pleural effusion. There is no significant pericardial effusion. IMPRESSION: No evidence of pulmonary embolism. No acute lung disease. Fusiform aneurysm of the thoracic aorta. Reviewed, Interpreted and Dictated by Jaime Enciso MD Transcribed by Margaret Gonsalez Authenticated and [facility]
--- NOTE | 2024-09-30 12:21 | ECG_ITS ---
APPROVED REPORT Exam: Resting ECG HR:55 bpm ECG Measurements Heart Rate 55 AXES AL 213 P 48 QRSd 99 QRS 50 QT 412 T 38 QTc 401 Conclusion SINUS BRADYCARDIA WITH FIRST DEGREE AV BLOCK POSSIBLE INFERIOR MYOCARDIAL INFARCTION , PROBABLY OLD [30 ms Q WAVE IN II/aVF] ABNORMAL ECG UNCONFIRMED REPORT Electronically signed by : ELEONORA RINCON, 10/02/2024 03:40:44
[2024-09-30 12:25] LABS: Basophils % 0.7 % (0.1-2.0); Eosinophils # 0.1 K/mm3 (0.0-0.4); Eosinophils % 1.5 % (0.1-12.0); Hematocrit 42.7 % (42.0-52.0); Hemoglobin 14.8 g/dL (14.1-18.0); Lymphocytes # 2.3 K/mm3 (0.7-4.5); Lymphocytes % 37.6 % (10-50); Mean Corpuscular HGB Conc 34.7 g/dL (31.8-35.4); Mean Corpuscular Hemoglobin 32.5 pg (27.0-31.2); Mean Corpuscular Volume 93.6 fl (80-94); Mean Platelet Volume 9.2 fl (7.4-10.4); Monocytes # 0.4 K/mm3 (0.1-1.0); Neutrophils # 3.2 K/mm3 (1.8-7.8); Nucleated Red Blood Cells # 0 10^3/uL; Nucleated Red Blood Cells % 0 %; Platelet Count 200 K/mm3 (142-424); Red Blood Count 4.56 M/mm3 (4.60-6.20); Red Cell Distribution Width 11.9 % (11.5-17.5)
[2024-09-30 12:28] LABS: Albumin Level 3.9 g/dl (3.5-5.0); Chloride 105 mmol/L (98-107); Potassium 3.9 mmoL/L (3.5-5.1); Sodium 139 mmol/L (136-145)
[2024-09-30 12:31] LABS: Alanine Aminotransferase 17 U/L (12-78); Albumin/Globulin Ratio 1.4 (1.1-1.8); Alkaline Phosphatase 102 U/L (38-126); Anion Gap 8.9 mEq/L (5-15); Aspartate Amino Transferase 29 U/L (17-59); Bilirubin,Total 0.4 mg/dl (0.2-1.3); Blood Urea Nitrogen 15 mg/dl (9-20); Calcium 8.8 mg/dl (8.4-10.2); Carbon Dioxide 29 mmol/L (22.0-30.0); Creatinine Clearance Estimated 75 mL/min (50-200); Estimated Glomerular Filt Rate 57 ml/min (>60); GFR (African American) 68 ML/MIN (>60); Globulin 2.8 g/dL (1.3-3.2); Glucose 110 mg/dl (74-100); Lipase 113 U/L (23-300); Magnesium 1.9 mg/dl (1.6-2.3); Total Protein,Serum 6.7 g/dl (6.3-8.2)
[2024-09-30] MEDS: ONDANSETRON 4MG/2ML VIAL 4 MG IV (12:32)
[2024-09-30] MEDS: 0.9 % SODIUM CHLORIDE 1000ML 1,000 ML 999 ML IV ×2 (12:32→13:45)
[2024-09-30 12:34] LABS: INR 1.01 (0.9-1.1); Prothrombin Time 11.3 seconds (10.1-12.5)
[2024-09-30 12:41] LABS: NT Pro Brain Natriuretic Pep. 119 pg/mL (0-125)
[2024-09-30] MEDS: SODIUM CHLORIDE 0.9% 10ML SYR (RAD ONLY) 10 ML IV (12:46)
[2024-09-30] MEDS: 0.9 % SODIUM CHLORIDE 50 ML VIAL 40 ML IV (12:46)
[2024-09-30] MEDS: IOPAMIDOL-370 (76%);100ML BOTTLE 100 ML IV (12:46)
[2024-09-30 12:54] LABS: Troponin I < 0.01 ng/ml (0.00-0.034)
[2024-09-30 13:39] LABS: HIV Combo NEGATIVE (Negative)
--- NOTE | 2024-09-30 13:43 | PC.NURSE ---
Called [facility] per LIOR Rodarte to speak with Thoracic surgery about consulting on a Ascending Aortic Aneurysm. has me on hold while they are paging
--- NOTE | 2024-09-30 13:46 | PC.NURSE ---
Franky London is speaking with LIOR Rodarte
[2024-09-30 13:47] LABS: Hepatitis C Ab Qual. W/ RFX NEGATIVE (Negative)
--- NOTE | 2024-09-30 13:50 | PC.NURSE ---
notified cardiology of consultation
[2024-09-30 16:11] LABS: Troponin I < 0.01 ng/ml (0.00-0.034)
== END 2024-09-30 16:44 | disposition home or self-care (01) ==
PROVIDERS: Physician Assistant; Emergency Provider Emergency Medicine; PCP Family Medicine
DX: R55 Syncope and collapse (principal); R07.9 Chest pain, unspecified; I95.2 Hypotension due to drugs
CPT/HCPCS: 71275; 80053; 83690; 83735; 83880; 84145; 84484; 85025; 85610; 86803; 87389; 93005; 96361; 96374; 99285; J2405; J7030; Q9967

== ENCOUNTER 2024-10-20 09:02 | Outpatient (CLI) | payer OTHER, SELFPAY ==
--- NOTE | 2024-10-20 09:06 | CA_ITS ---
APPROVED REPORT EXAM: Comprehensive 2D, Doppler, and color-flow Echocardiogram Rug Frame Mounter: Mattie Moctezuma RDCS Ht: 5 ft 6 in Wt: 181lbs BSA: 1.92 BP: 130/77 mmHg Indications: HYPOTENSION,H/O CVA,CAD M-Mode Dimensions RVDd 1.71 cm (0.9-2.6) LA Diam 3.43 cm (1.9-4.0) LVDd 5.67 cm (3.5-5.7) LVDs 3.92 cm (3.5-5.7) IVSd 0.57 cm (0.6-1.1) PWd 0.84 cm (0.6-1.1) EF (Teich) 57.80% FS 30.90% EDV (Teich) 158.10 mL TAPSE 2.25 (<1.7) ESV (Teich) 66.70 mL LV Diastology E Decel Time 233 (160-240 msec) E/A Ratio 0.7 Aortic Valve AI PHT 696.00 ms Mitral Valve MV E Max Kyrie. 87.0 (40-130 cm/s) MV A Velocity 125.0 (40-130 cm/s) E/A Ratio 0.70 MV PHT 68.0 ms Left Ventricle The left ventricle is normal size. The left ventricular systolic function is normal. The left ventricular ejection fraction is within the normal range. There is increased LV wall thickness. There is normal LV segmental wall motion. The left ventricular diastolic function is normal. LVEF is 55%. Right Ventricle Right ventricle is mildly dilated. The right ventricular systolic function is normal. Atria The left atrium size is normal. The right atrium size is normal. There is no Doppler evidence of interatrial shunt. Aortic Valve The aortic valve is mildly thickened. Mild aortic regurgitation. There is no aortic valvular stenosis. Mitral Valve The mitral valve is normal in structure. No evidence of mitral valve stenosis. Trace mitral regurgitation. Tricuspid Valve Tricuspid valve is grossly normal in structure and function. Trace tricuspid regurgitation. There is insufficient TR jet to estimate RVSP. Pulmonic Valve The pulmonary valve is normal in structure. Mild pulmonic regurgitation. Great Vessels The aortic root is normal in size. IVC is normal in size and collapses >50% with inspiration. Pericardium There is no pericardial effusion. Other Information Study Quality: Fair Conclusion Normal biventricular systolic function. Mild RV dilation. Mild AI, mild PI. Electronically signed by : Luba Barr MD 10/25/2024 13:51:03
--- NOTE | 2024-10-20 09:54 | CA_ITS ---
APPROVED REPORT Exam: Pharmacologic Technologist: Venus Kc Ht: 5 ft 9 in Wt: 181 lbs BSA: 1.98 m2 Medical History Medications: aspirin, atorvastatin, burpopion HCI XL, repatha, pepcid, losartan, metoprolol succinate ER, nitrostat, effient. Stress Test Details Test: Lexiscan Reason for pharmacologic stress test: changed from exercise stress test due to inability to reach target heart rate. HR Resting HR: 71 bpm Max Heart Rate (APMHR): 161.126296 bpm Max HR Achieved: 97 bpm Target HR (85% APMHR): 136.620691 bpm % of APMHR: 60.25 Recovery HR: 95 bpm BP Resting BP: 104.0/70.0 mmHg Max BP: 120.0/61.0 mmHg Recovery BP: 114.0/63.0 mmHg ECG Stress ECG Conclusion Symptoms: denies symptoms. Arrhythmias/Ectopy: None. ST-T Changes: EKG [id number]. Electronically signed by : Luba Barr MD 10/20/2024 21:13:54
--- NOTE | 2024-10-20 11:30 | NM_ITS ---
APPROVED REPORT Exam: Nuclear Stress Test Indication: Fatigue, CAD, Hx of RI, HTN, High cholesterol, Tobacco use Patient Location: Outpatient Stress Tech: Venus Brito HI Tech:TRACY Pendleton RT(R)(N) Ht: 5 ft 6 in Wt: 180 lbs HR: 72 bpm BP: 104/70 mmHg BSA: 1.91 m2 TID: 0.87 BMI: 29.0 History: Fatigue, CAD, Hx of RI, HTN, High cholesterol, Tobacco use Procedure: Patient received 0.4 mg of intravenous AdenosineLexiscan, resting heart rate 72 bpm, resting blood pressure 104/70 mmHg, with Lexiscan maximum heart rate achieved was 96 bpm which is % of the maximum predicted heart rate and blood pressure was 120/61 mmHg. With Lexiscan, patient denied any complaint of chest pain. Cardiac Stress and Resting SPECT Images: Cardiac Stress and Resting SPECT images were obtained using technetium 99m Myoview 32.7 mCi stress and 10.84 mCi at rest. The patient was unable to lie on his back. Therefore, supine stress imaging could not be performed. This may affect diagnostic interpretation of the study findings. Resting and stress imaging and prone positions demonstrate a medium sized, moderate, predominantly fixed perfusion defect in the lateral and inferolateral LV islas.. There is a small region of surrounding reversibility. Gated imagesnormal global and regional LV systolic function. LVEF is calculated at 61%. Conclusion: Medium sized, moderate, predominantly fixed perfusion defect in the lateral and inferolateral LV islas.. There is a small region of surrounding reversibility. Findings are suggestive of partial reversible ischemia. Gated imagesnormal global and regional LV systolic function. LVEF is calculated at 61%. Electronically signed by : Luba Barr MD 10/20/2024 21:10:01
[2024-10-20] MEDS: SODIUM CHLORIDE 0.9% 10ML SYR (RAD ONLY) 10 ML IV ×2 (13:03)
[2024-10-20] MEDS: REGADENOSON 0.4MG/5ML SYRINGE 0.4 MG IV (13:03)
[2024-10-20] MEDS: ISOTOPE MYOVIEW (PER STUDY) 1 DOSE IV (13:03)
== END 2024-10-20 23:59 | disposition home or self-care (01) ==
LOC: RT 09:03
PROVIDERS: PCP Family Medicine; Visit Provider Nurse Practitioner Family
DX: I51.7 Cardiomegaly (principal); I35.1 Nonrheumatic aortic (valve) insufficiency; I37.1 Nonrheumatic pulmonary valve insufficiency; I25.10 Atherosclerotic heart disease of native coronary artery without angina pectoris; R42 Dizziness and giddiness; R53.83 Other fatigue
CPT/HCPCS: 78452; 93017; 93018; 93306; A9502; J2785

== ENCOUNTER 2024-11-09 09:04 | Day surgery (SDC) | payer OTHER, SELFPAY ==
[2024-11-09] VITALS (12 sets, daily range): BP systolic 92–120; BP diastolic 41–69; PULSE 44–70; RESP 16–20; O2SAT 90–97; BMI 28.4
--- NOTE | 2024-11-09 06:59 | IR_ITS ---
APPROVED REPORT Patient Location: Outpatient PROCEDURES Left heart catheterization Left ventriculogram Selective coronary angiogram Drug-eluting stent deployment to the posterior sending artery INDICATION Coronary artery disease, Angina pectoris, Abnormal Myoview Informed consent was obtained prior to the procedure. COMPLICATIONS NONE Estimated Blood Loss: LESS THAN 10 ML TECHNIQUE One percent lidocaine used to anesthetize the right anterior aspect of the wrist. The right radial artery was accessed via the Seldinger technique. A 6 Chinese sheath was placed in the right radial artery. 2.5 mg of Verapamil, 800 mcg of nitroglycerin, 1mg Lidocaine and 5000 U Heparin were given through the arterial sheath. The JL3 catheter was also used to perform left heart catheterization, left ventriculogram and selective coronary angiogram. At the end the diagnostic angiogram therapeutic heparin was administered giving a therapeutic ACT and the guide catheter was placed in the right coronary followed by Choice PT extra-support wire placed distally in the PDA. A 2.5 x 22 mm Petey frontier stent was deployed at 16 shereen reducing the stenosis to 0%. [place]-3 flow was present before and after the procedure ANGIOGRAPHIC RESULTS The left main artery Normal The left anterior descending artery Is a stent in the proximal segment which is widely patent with minimal in-stent restenosis with excellent proximal distal transitioning. There is additional 20 to 30% mid LAD and distal stenoses The circumflex artery Is nondominant and has a stent in the proximal segment which has 30% in-stent restenosis at the ostial segment and just proximal to the stent transition with distal 30% in-stent restenosis and 50 to 60% transitioning stenosis however the vessel is just under 2 mm in diameter distally The right coronary artery Large and dominant with a stent in the proximal to mid and distal segment which has mild concentric in-stent restenosis in the proximal segment 30 to 40% concentric in-stent restenosis in the mid to distal segment. Large posterior descending artery has a mid vessel 60 to 70% stenosis The HAMMONDS ventriculogram reveals Normal 60% The left ventricular end-diastolic pressure 15 mmHg IMPRESSION Coronary artery disease as described above Severe disease in a large posterior descending artery which correlated to the abnormal Myoview Successful stenting of the large posterior sending artery severe disease reduced to 0% with 1 drug-eluting stent PLAN 1. Dual antiplatelet therapy 2. Cardiac rehabilitation 3. Avoidance of tobacco products 4. Risk factor modification Electronically signed by : Rajinder Chiu MD 11/09/2024 12:12:02
[2024-11-09 09:35] LABS: Basophils % 0.5 % (0.1-2.0); Eosinophils # 0.1 Kmm3 (0.0-0.4); Eosinophils % 1.4 % (0.1-12.0); Hematocrit 45.2 % (42.0-52.0); Hemoglobin 15.4 g/dL (14.1-18.0); Immature Granulocytes # 0.03 10^3uL; Immature Granulocytes % 0.4 %; Lymphocytes # 2.5 K/mm3 (0.7-4.5); Lymphocytes % 30.6 % (10-50); Mean Corpuscular HGB Conc 34.1 g/dL (31.8-35.4); Mean Corpuscular Hemoglobin 32.4 pg (27.0-31.2); Mean Platelet Volume 9.4 fl (7.4-10.4); Monocytes # 0.5 K/mm3 (0.1-1.0); Monocytes % 6.1 % (1.7-9.3); Neutrophils # 5.1 K/mm3 (1.8-7.8); Nucleated Red Blood Cells # 0 10^3/uL; Nucleated Red Blood Cells % 0 %; Platelet Count 203 K/mm3 (142-424); Red Blood Count 4.76 M/mm3 (4.60-6.20); Red Cell Distribution Width 12.3 % (11.5-17.5); Red Cell Distribution Width-SD 42.8 fL; White Blood Count 8.3 K/mm3 (4.8-10.8)
[2024-11-09 09:46] LABS: Anion Gap 9.2 mEq/L (5-15); Blood Urea Nitrogen 15 mg/dl (9-20); Calcium 8.7 mg/dl (8.4-10.2); Carbon Dioxide 30 mmol/L (22.0-30.0); Chloride 106 mmol/L (98-107); Creatinine Clearance Estimated 75 mL/min (50-200); Estimated Glomerular Filt Rate 62 ml/min (>60); GFR (African American) 75 ML/MIN (>60); Glucose 89 mg/dl (74-100); Potassium 4.2 mmoL/L (3.5-5.1); Sodium 141 mmol/L (136-145)
[2024-11-09] MEDS: HEPARIN 1,000 UNITS/500ML NS (CATH LAB) 3000 UNIT IV (11:13)
[2024-11-09] MEDS: VERAPAMIL 2.5MG/ML 2ML VIAL 2.5 MG IV (11:13)
[2024-11-09] MEDS: LIDOCAINE 1% 10ML MDV 10 ML IJ (11:13)
[2024-11-09] MEDS: NITROGLYCERIN 800MCG/8ML SYR (CATH LAB) 800 MCG IA (11:13)
[2024-11-09] MEDS: 0.9 % SODIUM CHLORIDE 500 ML 25 ML IV (11:13)
[2024-11-09] MEDS: diphenhydrAMINE 50MG/ML VIAL 50 MG IV (11:14)
[2024-11-09] MEDS: HEPARIN 1,000 UNITS/ML 10ML VIAL (CATH LAB) 5000 UNIT IV ×2 (11:14→11:53)
[2024-11-09 12:15] LABS: CATHL Activated Clotting Time 395 SEC (74-125)
[2024-11-09] MEDS: IOPAMIDOL-370 (76%);100ML BOTTLE 80 ML IV (12:20)
== END 2024-11-09 15:07 | disposition home or self-care (01) ==
PROVIDERS: PCP Family Medicine; Visit Provider Internal Medicine
PROC: 4A023N7 Measurement of Cardiac Sampling and Pressure, Left Heart, Percutaneous Approach (ICD-10-PCS; CPT 93452; principal; 2024-11-09 08:15)
PROC: 5A2204Z Restoration of Cardiac Rhythm, Single (ICD-10-PCS; 2024-11-09 08:15)
DX: I25.118 Atherosclerotic heart disease of native coronary artery with other forms of angina pectoris (principal); T82.855A Stenosis of coronary artery stent, initial encounter; I11.9 Hypertensive heart disease without heart failure; F17.210 Nicotine dependence, cigarettes, uncomplicated; R93.1 Abnormal findings on diagnostic imaging of heart and coronary circulation; R53.83 Other fatigue; R94.39 Abnormal result of other cardiovascular function study; Z79.899 Other long term (current) drug therapy; Z82.49 Family history of ischemic heart disease and other diseases of the circulatory system; F10.90 Alcohol use, unspecified, uncomplicated; I95.2 Hypotension due to drugs; D68.51 Activated protein C resistance; E78.5 Hyperlipidemia, unspecified; Y83.1 Surgical operation with implant of artificial internal device as the cause of abnormal reaction of the patient, or of later complication, without mention of misadventure at the time of the procedure; I77.1 Stricture of artery
CPT/HCPCS: 80048; 85025; 85347; 92928; 93458; 99152; C1725; C1769; C1874; C9600; J1200; J1644; Q9967

== ENCOUNTER 2024-11-16 13:06 | Outpatient (CLI) | payer OTHER, SELFPAY ==
[2024-11-16 14:31] LABS: Anion Gap 10.8 mEq/L (5-15); Blood Urea Nitrogen 18 mg/dl (9-20); Calcium 9.1 mg/dl (8.4-10.2); Carbon Dioxide 28 mmol/L (22.0-30.0); Chloride 104 mmol/L (98-107); Estimated Glomerular Filt Rate 69 ml/min (>60); GFR (African American) 83 ML/MIN (>60); Glucose 96 mg/dl (74-100); Potassium 4.8 mmoL/L (3.5-5.1); Sodium 138 mmol/L (136-145)
[2024-11-16 14:33] LABS: Basophils % 0.3 % (0.1-2.0); Eosinophils # 0.1 Kmm3 (0.0-0.4); Eosinophils % 0.7 % (0.1-12.0); Hematocrit 45.6 % (42.0-52.0); Hemoglobin 15.7 g/dL (14.1-18.0); Immature Granulocytes # 0.04 10^3uL; Immature Granulocytes % 0.3 %; Lymphocytes # 3.1 K/mm3 (0.7-4.5); Lymphocytes % 25.3 % (10-50); Mean Corpuscular HGB Conc 34.4 g/dL (31.8-35.4); Mean Corpuscular Hemoglobin 32.5 pg (27.0-31.2); Mean Corpuscular Volume 94.4 fl (80-94); Mean Platelet Volume 10.1 fl (7.4-10.4); Monocytes # 0.6 K/mm3 (0.1-1.0); Monocytes % 5.2 % (1.7-9.3); Neutrophils # 8.3 K/mm3 (1.8-7.8); Neutrophils % 68.2 % (37.0-80.0); Nucleated Red Blood Cells # 0 10^3/uL; Nucleated Red Blood Cells % 0 %; Platelet Count 213 K/mm3 (142-424); Red Blood Count 4.83 M/mm3 (4.60-6.20); Red Cell Distribution Width 12.4 % (11.5-17.5); Red Cell Distribution Width-SD 43.1 fL; White Blood Count 12.2 K/mm3 (4.8-10.8)
== END 2024-11-16 23:59 | disposition home or self-care (01) ==
LOC: LAB 13:07
PROVIDERS: PCP Family Medicine; Visit Provider Internal Medicine
DX: I25.10 Atherosclerotic heart disease of native coronary artery without angina pectoris (principal)
CPT/HCPCS: 36415; 80048; 85025

== ENCOUNTER 2025-03-08 09:46 | Outpatient (CLI) | payer OTHER, SELFPAY ==
--- OUTSIDE RECORDS SUMMARY | 2025-03-08 09:49 | XMS_ITS | Clinical Summary ---
Author Organization [facility] Address [address] [place] [address] Care Team Providers Care Assistant Clinical Director Name Role Phone Provider, No Known Primary Care Provider [phone] Allergies No known active allergies Medications aspirin 81 MG chewable tablet Chew 81 mg 2 (two) times a day. Active buPROPion SR (WELLBUTRIN SR) 150 MG 12 hr tabletIndicatio ns:Tobacco abuse Take 1 tablet by mouth Every 12 (Twelve) Hours. Start taking once daily, then after 1 week take BID 180 tablet 1 04/16/2018 Active nitroglycerin (NITROSTAT) 0.4 MG SL tabletIndicatio ns:Coronary artery disease involving [place] coronary artery of [place] heart with angina pectoris 1 under the tongue as needed for angina, may repeat q5mins for up three doses 100 tablet 11 04/16/2018 Active atorvastatin (LIPITOR) 40 MG tablet TAKE 1 TABLET BY MOUTH AT BEDTIME 30 tablet 01/14/2019 Active Active Problems Problem Noted Date Diagnosed Date Encounter for well adult exam without abnormal f indings 05/29/2016 Fatigue 05/29/2016 Screening for prostate cancer 05/29/2016 BMI 30.0-30.9,adult 05/29/2016 Tobacco abuse 11/28/2015 History of inferior wall myocardial infarction 0 11/28/2015 Coronary artery disease invo lving [place] coronary artery of [place] heart with angina pectoris 11/28/2015 Hypercholesteremia 11/28/2015 History of CVA (cerebrovascular accident) 2015 Family History Medical History Relation Name Comments Hypotension Father Stroke Father 4-5 mini stroke s No Known Problems Mother Alzheimer's disease Paternal Grandmother Relation Name Status Comments Father Alive Mother Alive Paternal Grandmother Paternal Uncle Other Social History Tobacco Use Types Packs/Day Years Used Date Smoking Tobacco: Every Day Cigarettes Smokeless Tobacco: Never Alcohol Use Standard Drinks/Week Comments Yes 2 (1 standard drink = 0.6 oz pur e alcohol) occas Abuse Screen Answer Date Recorded Unsafe at Home or Work/School Not on file Feels Threatened by Someone? Not on file 04/2023 Does Anyone Keep You from Co ntacting Others or Doint Things Outside the Home? Not on file 04/01/2023 Physical Sign of Abuse Present Not on file 1 Housing Stability Answer Date Recorded Current Living Arrangements Not on file 03/22 Potentially Unsafe Housing Conditions Not on josue e 04/01/2023 Family and Community Support Answer Jose e Recorded Help with Day-to-Day Activities Not on file 04/01/2023 Lonely or Isolated Not on file 04/01/2023 Employment Answer Date Recorded Do you want help finding or keeping work or a christiano b? Not on file 04/01/2023 Disabilities Answer Date Recorded Concentrating, Remembering, or Making Decisions Difficulty Not on file 04/01/2023 Doing Errands Independently Difficulty Not on fi le 04/01/2023 Education Answer Date Recorded Help with school or training? Not on file Preferred Language Not on file 04/01/2023 Sex and Gender Information Value Date Recorded Sex Assigned at Not on file Legal Sex Male 8:32 AM EDT Gender Identity Not on file Sexual Orientation Not on file Last Filed Vital Signs Vital Sign Reading Time Taken Comments Blood Pressure 110/70 04/16/2018 9:55 AM EDT Pulse 75 04/16/2018 9:55 AM EDT Temperature 36.2 C (97.2 F) 05/29/2016 8:48 AM EST Respiratory Rate 18 05/29/2016 8:48 AM EST Oxygen Saturation 98% 04/16/2018 9:55 AM EDT Inhaled Oxygen Concentration - - Weight 81.4 kg (179 lb 6.4 oz) 04/16/2018 9:55 A M EDT Height 167.6 cm (5' 6 ) 04/16/2018 9:55 AM EDT Body Mass Index 28.96 04/16/2018 9:55 AM EDT Plan of Treatment Health Maintenance Due Date Last Done Comments COLOGUARD 2010 COLON CANCER SCREENING 5 YEA R SIGMOIDOSCOPY 2010 COLONOSCOPY 2010 COL[address]ECTAL CANCER SCREENING 2010 CT COLONOGRAPHY 2010 FECAL OCCULT BLOOD TEST 2010 FIT Testing (1 year) 2010 Pneumococcal Vaccine 50+ (1 of 1 - PCV) 09/10/2015 ZOSTER VACCINE (1 of 2) 09/10/2015 ANNUAL PHYSICAL 11/28/2015 HEPATITIS C SCREENING 11/28/2015 LIPID PANEL 07/10/2018 07/10/2017, 12/0 01/2016, 11/20/2015 COVID-19 Vaccine ( season) 2025 INFLUENZA VACCINE 03/22/2025 05/29/2016 (Declined) TDAP/TD VACCINES (2 - Td or Tdap) 04/05/2026 016 Procedures Procedure Name Priority Date/Time Associated Diagnosis Comments LIPID PANEL Routine 07/10/2017 10:54 AM EST Coronary artery disease involving [place] coronary artery of [place] heart with angina pectoris Hypercholesteremia from Last 3 Months or Most Recently Relevant to Health Maintenance Results * (ABNORMAL) Lipid Panel (07/10/2017 10:54 AM EST) Total Cholesterol 165 0 - 200 mg/dL 07/10/2017 11:35 AM EST [facility] Triglycerides 194(H) 0 - 150 mg/dL 07/10/2017 11:35 AM EST [facility] HDL Cholesterol 32(L) 40 - 60 mg/dL 07/10/2017 11:35 AM EST [facility] LDL Cholesterol 118 0 - 130 mg/dL 07/10/2017 11:35 AM EST [facility] Blood Venipuncture / Unknown 07/10/2017 10:54 AM EST 07/10/2017 10:54 AM EST [facility] - 07/10/2017 11:35 AM EST Cholesterol Reference Ranges: Desirable < 200 mg/dL Borderline 200-239 mg/dL High Risk > 239 mg/dL Triglyceride Reference Ranges: Normal < 150 mg/dL Borderline 150-199 mg/dL High 200-499 mg/dL Very High > 499 mg/dL HDL Reference Ranges: Low < 40 mg/dL High > 59 mg/dL LDL Reference Ranges: Optimal < 100 mg/dL Near Optimal 100-129 mg/dL Borderline 130-159 mg/dL High 160-189 mg/dL Very High > 189 mg/dL us Annamaria TINAJERO LAB BLOOD ORDERABLES Final Re sult [facility]
[address] [place] [address], from Last 3 Months or Most Recently Relevant to Health Maintenance Care Teams Assistant Clinical Director Relationship Specialty Start Date End Date Provider, [place] [address] PCP - General 11/19/15
--- NOTE | 2025-03-08 10:30 | CA_ITS ---
FINAL REPORT CLINICAL HISTORY: Positional Dizziness, Smoker FINDINGS: RIGHT CAROTID: CCA PSV -77 cm/sec ICA PSV -75 cm/sec ICA/CCA PSV ratio -1.09. Comments: Mild plaque disease is noted. LEFTCAROTID: CCA PSV -83. cm/sec ICA PSV -99. cm/sec ICA/CCA PSV ratio -1.20. Comments: No appreciable plaque disease is noted. Antegrade flow is seen within the vertebral arteries. IMPRESSION: Carotid stenosis classified less than 50% Reviewed, Interpreted and Dictated by Jaime Enciso MD Transcribed by Yoselyn Powell Authenticated and [facility]
== END 2025-03-08 23:59 | disposition home or self-care (01) ==
LOC: RT 09:47
PROVIDERS: PCP Family Medicine; Visit Provider Physician Assistant
DX: I65.23 Occlusion and stenosis of bilateral carotid arteries (principal)
CPT/HCPCS: 93880

== ENCOUNTER 2025-04-07 10:23 | Outpatient (CLI) | payer OTHER, SELFPAY ==
--- OUTSIDE RECORDS SUMMARY | 2025-04-07 10:25 | XMS_ITS | Clinical Summary ---
Author Organization [facility] Address [address] [place] [address] Care Team Providers Care Radiologist Diagnostic Name Role Phone Provider, No Known Primary Care Provider [phone] Allergies No known active allergies Medications aspirin [...] MG SL tabletIndicatio ns:Coronary artery disease involving [place] coronary artery of [place] heart with angina pectoris 1 under the [...] 0 11/28/2015 Coronary artery disease invo lving [place] coronary artery of [place] heart with angina pectoris 11/28/2015 Hypercholesteremia 11/28/2015 [...] LIPID PANEL 07/10/2018 07/10/2017, 12/0 01/2016, 11/20/2015 INFLUENZA VACCINE 01/20/2025 05/29/2016 (Declined) TDAP/TD VACCINES (2 - Td or Tdap) 04/05/2026 016 Procedures Procedure Name Priority Date/Time Associated Diagnosis Comments LIPID PANEL Routine 07/10/2017 10:54 AM EST Coronary artery disease involving [place] coronary artery of [place] heart with angina pectoris Hypercholesteremia from Last 3 Months or Most Recently Relevant to Health Maintenance Results * (ABNORMAL) Lipid Panel (07/10/2017 10:54 AM EST) Total Cholesterol 165 0 - 200 mg/dL 07/10/2017 11:35 AM EST [facility] Triglycerides 194(H) 0 - 150 mg/dL 07/10/2017 11:35 AM EST [facility] HDL Cholesterol 32(L) 40 - 60 mg/dL 07/10/2017 11:35 AM EST [facility] LDL Cholesterol 118 0 - 130 mg/dL 07/10/2017 11:35 AM EST [facility] Blood Venipuncture / Unknown 07/10/2017 10:54 AM EST 07/10/2017 10:54 AM EST [facility] - 07/10/2017 11:35 AM EST [...] TINAJERO LAB BLOOD ORDERABLES Final Re sult [facility]
[address] [place] [address], from Last 3 Months or Most Recently Relevant to Health Maintenance Care Teams Radiologist Diagnostic Relationship Specialty Start Date End Date Provider, [place] [address] PCP - General 11/19/15
--- OUTSIDE RECORDS SUMMARY | 2025-04-07 10:25 | XMS_ITS | Clinical Summary ---
Author Organization [facility] Address [address] [place] [address] Care Team Providers Care Residential Supervisor Name Role Phone Tod Valderrama MD Primary Care Provider Stiven Gonzalez Unavailable [phone] Allergies No known active allergies Medications ASPIRIN 81 MG chewable tablet Chew 1 tablet daily. Active atorvastatin (Lipitor) 80 MG tablet Take 1 tablet by mouth daily. 06/30/2024 Active amoxicillin (Amoxil) 500 MG capsule Take 1 capsule by mouth 3 (three) times a day. 10/11/2024 Active buPROPion XL (Wellbutrin XL) 150 MG 24 hr tablet Take 1 tablet by mouth every morning. 09/13/2024 Active Repatha SureClick 140 MG/ML solution auto-injector Inject 1 mL under the skin every 14 (fourteen) days. 08/18/2024 Active losartan (Cozaar) 50 MG tablet Take 0.5 tablets by mouth daily. 04/18/2024 Active metoprolol succinate XL (Toprol-XL) 25 MG 24 hr tablet Take 0.5 tablets by mouth daily. 06/30/2024 Active nitroglycerin (Nitrostat) 0.[address] 1 tablet under the tongue every 5 (five) minutes as needed. 02/26/2024 Active prasugrel (Effient) 10 MG tablet Take 1 tablet by mouth daily. 09/13/2024 Active famotidine (Pepcid) 40 MG tablet Take 1 tablet by mouth daily. Active Active Problems Problem Noted Date Diagnosed Date BMI 28.0-28.9,adult 10/12/2024 Social History Tobacco Use Types Packs/Day Years Used Date Smoking Tobacco: Every Day Cigarettes Smokeless Tobacco: Never Tobacco Cessation:Ready to Q uit: Not Asked; Counseling Given: Not Answered Alcohol Use Standard Drinks/Week Comments Not Asked 0 (1 standard drink = 0.6 oz pur e alcohol) occasionally Sex and Gender Information Value Date Recorded Sex Assigned at Not on file Legal Sex Male 7:29 PM EDT Gender Identity Not on file Sexual Orientation Not on file Last Filed Vital Signs Vital Sign Reading Time Taken Comments Blood Pressure 116/65 10/12/2024 10:52 AM EDT Pulse 66 10/12/2024 10:52 AM EDT Temperature - - Respiratory Rate - - Oxygen Saturation 95% 10/12/2024 10: 52 AM EDT Inhaled Oxygen Concentration - - Weight 81.1 kg (178 lb 12.7 oz) 025 10:52 AM EDT Height 167.6 cm (5' 6 ) 10/12/2024 10:5 2 AM EDT Body Mass Index 28.86 10/12/2024 10:52 AM EDT Plan of Treatment Upcoming Encounters Date Type Department Care Team (Late st Contact Info) Description 04/19/2025 9:10 AM EDT Appointment [facility] [address] [place] [address] 04/19/2025 11:00 AM EDT Office Visit [facility] [address], [address] [place] [address] Grady Schmid MD [address] [place] [address] Health Maintenance Due Date Last Done Comments [facility]-Depression Screening 1965 [facility]-HIV Screening 1965 [facility]-Hepatitis C Screening 1965 [facility]-/Child/Adol SDOH Screenings 1965 [facility]- SDOH Screenings 09/10/1983 [facility]-Adult SDOH Screenings 09/10/1983 [facility]-DTaP,Tdap,and Td Vaccine s (1 - Tdap) 1984 [facility]-Hepatitis B Vaccines (1 of 3 - 19+ 3-dose series) 1984 [facility]-Pneumococcal Vaccine: 50 + Years (1 of 2 - PCV) 1984 CT Colonography 2010 Colonoscopy 2010 FIT-DNA 2010 FIT 2010 FOBT 2010 Sigmoidoscopy 2010 [facility]-Colorectal Cancer Screening 2010 [facility]-Zoster Vaccines (1 of 2) 09/10/2015 XVL-XETOM-64 Vaccine (1 - 20 24-25 season) 2025 [facility]-Influenza Vaccine (#1) 2025 [facility]-Obesity Intervention Completed 10/12/2024 HPV Vaccines Aged Out No longer eligi ble based on patient's age to complete this topic [facility]-HIB Vaccines Aged Out No longer e ligible based on patient's age to complete this topic [facility]-Hepatitis A Vaccines Aged Out No longer eligible based on patient's age to complete this topic [facility]-IPV Vaccines Aged Out No longer e ligible based on patient's age to complete this topic [facility]-Rotavirus Vaccines Aged Out No lo nger eligible based on patient's age to complete this topic Insurance Care Teams Residential Supervisor Relationship Specialty Start Date End Date Tod Valderrama MD PCP - General Family Medicine 10/12/24 Stiven Rodarte PA [address] [place] [address] [place], [place] [address] Referring Physician 10/13/24
--- OUTSIDE RECORDS SUMMARY | 2025-04-07 10:25 | XMS_ITS | Encounter Summary ---
Author Organization [facility] Address [address] [place] [address] Care Team Providers Care Stitcher Around Name Role Phone Roman Baker MD Primary Care Provider [phone] Tod Valderrama MD Primary Care Provider Yani Stiven Hussein Unavailable [phone] Encounter Details Date Type Department Care Team (Late Contact Info) Description 10/23/2022 Orders Only External Location [address] [place] [address] Provider, External Social History Tobacco Use Types Packs/Day Years Used Date Smoking Tobacco: Never Assessed Sex and Gender Information Value Date Recorded Sex Assigned at Not on file Legal Sex Male 7:29 PM EDT Gender Identity Not on file Sexual Orientation Not on file documented as of this encounter Plan of Treatment Upcoming Encounters Date Type Department Care Team (Late Contact Info) Description 04/19/2025 9:10 AM EDT Appointment [facility] [address] [place] [address] 04/19/2025 11:00 AM EDT Office Visit [facility] [address], [address] [place] [address] Grady Schmid MD [address] [place] [address] documented as of this encounter Procedures Procedure Name Priority Date/Time Associated Diagnosis Comments IR OUTSIDE IMAGES 10/23/2022 1:59 PM EDT documented in this encounter Results * IR OUTSIDE IMAGES (10/23/2022 1:59 PM EDT) Anatomical Region Laterality Modality X-Ray Angiograph y 10/23/2022 1:59 PM EDT us External Provider IMG IR PROCEDURES Final Result documented in this encounter Visit Diagnoses Not on filedocumented in this encounter Care Teams Stitcher Around Relationship Specialty Start Date End Date Roman Baker MD [address] [place] [address] PCP - General 11/02/20 10/11/24 Tod Valderrama MD [address] [place] [address] PCP - General Family Medicine 10/12/24 Stiven Rodarte PA [address] [place] [address] [place] [address] Referring Physician 10/13/24 documented as of this encounter
--- NOTE | 2025-04-07 10:45 | CT_ITS ---
FINAL REPORT TECHNIQUE: Thin section axial images were obtained from the lung apices to the upper abdomen by computed tomography. Reformatted images were obtained and reviewed. This study was performed with techniques to keep radiation doses al low as reasonably achievable (ALARA). Individualized dose reduction techniques using automated exposure control or adjustment of mA and/or kV according to the patient's size were employed. CLINICAL HISTORY: lung cancer screening; lung nodule CURRENT SMOKER 1/2PPD X47 YEARS COMPARISON: 03/10/2024 FINDINGS: CHEST CT LOW DOSE CTDI vol (mGy): 2.90 DLP (mGy-cm): 98.21 There is no axillary adenopathy. There is no mediastinal or hilar mass or adenopathy. The heart is normal in size. There is enlargement of the ascending aorta, measuring 4.2 cm in diameter, stable since the prior CTA of the chest dated 09/30/2024. Coronary artery calcifications are present. There is no pericardial or pleural effusion. There is a stable 6 mm nodule in the right major fissure, best seen on image #40 of series 4. Limited images of the upper abdomen are unremarkable. IMPRESSION: Lung-RADS category 2S, the S designation for the ascending aortic aneurysm. Recommend 12 month follow up low dose chest CT. Reviewed, Interpreted and Dictated by Orlando Solis MD Transcribed by Eulalia Ramirez Authenticated and [facility]
== END 2025-04-07 23:59 | disposition home or self-care (01) ==
LOC: RAD 10:23
PROVIDERS: PCP Family Medicine; Visit Provider Family Medicine
DX: Z12.2 Encounter for screening for malignant neoplasm of respiratory organs (principal); F17.210 Nicotine dependence, cigarettes, uncomplicated; R91.1 Solitary pulmonary nodule; I25.10 Atherosclerotic heart disease of native coronary artery without angina pectoris; I51.7 Cardiomegaly
CPT/HCPCS: 71271

== ENCOUNTER 2025-05-08 14:42 | Outpatient (CLI) | payer OTHER, SELFPAY ==
--- NOTE | 2025-05-08 15:15 | CT_ITS ---
FINAL REPORT CLINICAL HISTORY: rule out chronic sinusitis COMPARISON: None FINDINGS: CT SINUSES: The paranasal sinuses are well aerated. There is no fracture. There are no air-fluid levels. The ostiomeatal complexes are unremarkable in appearance. IMPRESSION: No acute or chronic abnormality of the sinuses is present. Reviewed, Interpreted and Dictated by Orlando Solis MD Transcribed by Eulalia Ramirez Authenticated and . [facility]
== END 2025-05-08 23:59 | disposition home or self-care (01) ==
LOC: RAD 14:42
PROVIDERS: PCP Family Medicine; Visit Provider Nurse Practitioner
DX: J32.9 Chronic sinusitis, unspecified (principal)
CPT/HCPCS: 70486

== ENCOUNTER 2025-05-12 10:25 | Outpatient (RCR) | payer OTHER, SELFPAY ==
--- NOTE | 2025-05-12 13:28 | HMH.PTOPEV ---
PT Evaluation Rehab PT Outpatient Evaluation Start: 05/12/25 11:27 Freq: Status: Active Protocol: Document 05/12/25 11:29 PHORNE (Rec: 05/12/25 11:48 PHORNE [id number]) E-signed By Ranulfo Hirsch, PT Outpatient Therapy Subjective History Subjective History This is the initial PT eval for Kris Sneed, 59 yowm who presents with c/o vertigo x 1-2 mos with insidious onset of symptoms. He reports vertigo is worse with leaning his head to the right or laying flat on his back. He also reports symptoms are relieved immediately if he moves out of those provocative positions. He reports also recent history of R side sinus headache that causes some blurriness of his vision, but it does not last long. 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 Chief Complaint Other Symptom Type Other Prior Functional None Limitations Current Functional Housework,Sleeping,Recreation Activity,Walking,Stairs, Limitations Balance Symptom Description Activity Dependent Vertigo Eval Oculomotor Examination Smooth Pursuits: Normal Saccades: Normal Gaze-Evoked Present Nystagmus: Vergence: Normal Skew Deviation: Present Comment: No nystagmus or symptom reproduction with any oculomotor testing Vestibular-Ocular Reflex (VOR) VOR Horizontal: Intact VOR Vertical: Intact Head Thrust Test Negative Right: Head Thrust Test Negative Left: Positional Testing Guzman-Hallpike Right: Positive Guzman-Hallpike Left: Negative Roll Test Right: Negative Roll Test Left: Negative Comment: Pt presented with very mild downbeating nystagmus during Veneta-Hallpike testing on the L side and pronounced positive upbeating nystagmus with R torsional nystagmus on the R side during Guzman-Hallpike testing. Symptom onset was rapid and dissipated within ~ 30 sec. Gait Assessment Assistive Device: None Gait Quality Normal Outpatient Therapy Assessment Impairments Problems/ Impaired Transfers,Impaired Standing,Impaired Driving, Impairmments Impaired Household Care,Impaired Recreational Activities Prognosis Rehab Potential Good Comment Skilled therapy is indicated to reduce symptoms of vertigo with likely R side PSC canalithiasis BPPV in order to improve overall functional abilities without dizziness. Clinical Impression Consistent with Yes Diagnosis PT Patient Goals PT Patient Goals PT Short Term In 2 wks pt will complete these goals in order to aid Patient Goals improvement in function specifically with all ADLs: 1) Report minimal vertigo with tilting head to R side in standing with all functional activities. PT Circuit Clerk Patient In 4 wks pt will complete these goals in order to aid Goals improvement in function specifically with all ADLs: 1) Report NO vertigo with tilting head to R side in standing with all functional activities. 2) Report NO vertigo with tilting head to R side in supine or laying flat. Outpatient Therapy Plan of Care Treatment Plan May Include Therapeutic Exercise Yes Including Home Exercise Program ADL/Self Care Yes Education Eval/Re-Eval Yes Canalith Yes Repositioning Technique Frequency Times per week 1 Duration Number of Weeks 4 Addendums This patient is a No candidate for social or vocational rehab ? Patient/Guardian Yes verbally acknowledges understanding of treatment program and consents to further treatment? Patient/Guardian Yes verbally acknowledges understanding of diagnosis, prognosis and goals for treatment? Eval Complexity PT Charges 52711 - Moderate Complexity Shoulder/Elbow Eval Shoulder Objective Measurements Elbow Objective Measurements PHYSICIAN CERTIFICATION: I certify the specified therapy services for Kris Farmerzhao are required, authorized, and reviewed every 30 days.
== END 2025-05-12 23:59 | disposition home or self-care (01) ==
LOC: PT 10:25
PROVIDERS: PCP Family Medicine; Visit Provider Nurse Practitioner
DX: H81.10 Benign paroxysmal vertigo, unspecified ear (principal)
CPT/HCPCS: 97162

== ENCOUNTER 2025-06-07 09:16 | Emergency (ER) | payer OTHER, SELFPAY ==
--- OUTSIDE RECORDS SUMMARY | 2025-04-19 07:52 | XMS_ITS | Encounter Summary ---
Author Organization [facility] Address [address] [place] [address] Care Team Providers Care Supervisor Aircraft Cleaning Name Role Phone Tod Valderrama MD Primary Care Provider Stiven Gonzalez Unavailable [phone] Reason for Referral * Imaging (Routine) - Closed Specialty Diagnoses / Procedures Referred By Contac t Referred To Contact Radiology Diagnoses Aneurysm of ascending aorta without rupture (CMS/HCC) Procedures CT Angio Chest Percy Munoz PA [address] [address] Phone: tel: fax: Referral ID Status Reason Start Date Expiration Date Visits Re quested Visits Authorized [id number] Closed 10/12/2024 04/13/2026 1 1 Reason for Visit * Imaging (Routine) - Closed Specialty Diagnoses / Procedures Referred By Contac t Referred To Contact Radiology Diagnoses Aneurysm of ascending aorta without rupture (CMS/HCC) Procedures CT Angio Chest Percy Munoz PA [address] [place] [address] Phone: tel: fax: Referral ID Status Reason Start Date Expiration Date Visits Re quested Visits Authorized [id number] Closed 10/12/2024 04/13/2026 1 1 Encounter Details Date Type Department Care Team (Latest Contact Info) Description 04/19/2025 8:52 AM EDT - 04/19/2025 11:59 PM EDT Hospital Encounter [facility] [address] [place] [address] Aneurysm of ascending aorta without rupture ([facility]) Discharge Disposition: Home or Self Care Social [...] on file documented as of this encounter Medications at Time of Discharge [...] EDT Appointment [facility] [address] [place] [address] 04/11/2026 12:45 PM EDT Office Visit [facility] [address], [address] [place] [address] Grady Schmid MD [address] [place] [address] documented as of this encounter Procedures Procedure [...] Omnipaque 350 was administered during the examination. [id number] workstation manipulation and review of the data [...] documented as of this encounter Care Teams Supervisor Aircraft Cleaning Relationship Specialty Start Date End Date Tod Valderrama MD PCP - General Family Medicine 10/12/24 Stiven Rodarte PA [address] [place] [address] [place] [address] Referring Physician 10/13/24 documented as of this encounter
--- OUTSIDE RECORDS SUMMARY | 2025-04-19 10:00 | XMS_ITS | Encounter Summary ---
Author Organization [facility] Address [address] [place] [address] Care Team Providers Care [employer] Chemist Name Role Phone Tod Valderrama MD Primary Care Provider Stiven Gonzalez Unavailable [phone] Reason for Referral * Imaging (Routine) - Pending Review Specialty Diagnoses / Procedures Referred By Contac t Referred To Contact Radiology Diagnoses Aneurysm of ascending aorta without rupture (CMS/HCC) Procedures CT Angio Chest Grady Schmid MD [address] [address] Phone: tel: fax: Referral ID Status Reason Start Date Expiration Date V isits Requested Visits Authorized [id number] Pending Review 04/19/2025 10/19/2026 1 1 Encounter Details Date Type Department Care Team (Late st Contact Info) Description 04/19/2025 11:00 AM EDT Office Visit [place] [facility] [address], [address] [place] [phone] Grady Schmid MD [address] [address] Aneurysm of ascending aorta without [...] 11:34 AM EDT documented in this encounter Miscellaneous Notes * [...] EDT Appointment [facility] [address] [place] [address] 04/11/2026 12:45 PM EDT Office Visit [place] [facility] [address], [address] [place] [address] Grady Schmid MD [address] [place] [id number] Scheduled Orders Name Type Priority Associated Diagnoses [...] documented as of this encounter Care Teams Waste[employer] Chemist Relationship Specialty Start Date End Date Tod Valderrama MD PCP - General Family Medicine 10/12/24 Stiven Rodarte PA [address] [place] [address] [place] [id number] Referring Physician 10/13/24 documented as of this encounter
[2025-06-07 09:22] VITALS: BP 112/64; PULSE 88; RESP 18; TEMP 37.4; O2SAT 95; BMI 29.8
--- NOTE | 2025-06-07 09:37 | XR_ITS ---
FINAL REPORT CLINICAL HISTORY: Nonspecific cough COMPARISON: 10/23/2022 FINDINGS: A single frontal view of the chest was obtained. No acute pulmonary opacity is present. There is no evidence of effusion or pneumothorax. Mediastinum is unremarkable. Heart size is normal. IMPRESSION: No acute abnormality. Reviewed, Interpreted and Dictated by Jaime Enciso MD Transcribed by Yoselyn Powell Authenticated and [facility]
--- NOTE | 2025-06-07 09:39 | ED_ITS ---
Discharge Plan Disposition Patient Disposition: Home, Self-Care Prescriptions Prescriptions: No Action prasugrel HCl [Effient] 10 mg tablet 10 mg PO DAILY Qty: 90 3RF nitroglycerin [Nitrostat] 0.4 mg tablet, sublingual 0.4 mg sublingual Q5M PRN (Reason: chest pain) Qty: 20 0RF Rx Instructions: do not exceed 3 doses per episode losartan 50 mg tablet 25 mg PO DAILY atorvastatin 80 mg tablet 80 mg PO DAILY Qty: 90 3RF famotidine [Pepcid] 40 mg tablet 40 mg PO DAILY Qty: 30 11RF bupropion HCl 150 mg tablet extended release 24 hr See Rx Instructions .ROUTE .COMPLEX Qty: 30 2RF Dose Instruction: TAKE 1 TABLET BY MOUTH DAILY Rx Instructions: TAKE 1 TABLET BY MOUTH DAILY Repatha SureClick 140 mg/mL pen injector 140 mg SQ Q2W Qty: 2 5RF aspirin 81 MG tablet,delayed release (DR/EC) 81 mg PO DAILY Referrals Follow up/Referrals: Tod Valderrama MD [Primary Care Provider, Internal Medicine] - See instructions Activity Restrictions/Add. Instructions Additional Instructions/Restrictions: You were found to have the flu. You can take Tylenol and ibuprofen to help with your symptoms. You can use rifj-roq-nhelagl lozenges or throat sprays to help with your sore throat. I do encourage you follow-up with your primary care doctor if symptoms do not improve in 5 days to a week. You also found to have a mild kidney injury. I do encourage you to follow-up with your primary care doctor this week for recheck of your kidney function. Continue to hydrate well by drinking plenty of fluids. If you develop any new or worsening symptoms, or if you become concerned for your help for any reason, return to the emergency department for evaluation. Clinical Impressions Clinical Impression: Influenza A, DANITA (acute kidney injury) Print Language Print Language: Sudanese Discharge ED Provider: Karri Mullen Adult HPI General Chief complaint: Upper Respiratory Infection Stated complaint: headache, sore throat, runny nose, body aches Time Seen by Provider: 06/07/25 09:31 Mode of Arrival: Ambulatory Source of Information: Patient Description of Symptoms (Recalled from ER Triage Doc. by RN): Reports having a headache, sore throat, and sinus congestion since yesterday morning. Reports also having the hiccups since 6pm last night. History of Present Illness HPI narrative: Kris Sneed is a 59-year-old male with history of coronary artery disease, coronary stents, hypertension who presents to the emergency department for complaints of cough, sore throat and runny nose. Patient states that he has developed headache, sore throat and sinus congestion starting yesterday morning as well as a mild dry cough. Patient also states that he has developed hiccups since 6 PM last night. He states that drinking cold water with temporary make the hiccups go away but then they come right back. He denies any fever. He denies any significant shortness of breath. He states that he only has chest discomfort when he is actively having a hiccup. He denies any known sick contacts. Related Data Home Medications ?Medication ?Instructions ?Recorded ?Confirmed aspirin 81 mg tablet,delayed 81 mg PO DAILY heart heal th 07/26/18 06/05/25 release losartan 50 mg tablet 25 mg PO DAILY Hypertension 10/03/24 06/05/25 Previous Rx's ?Medication ?Instructions ?Recorded nitroglycerin 0.4 mg sublingual 0.4 mg sublingual Q5M PRN chest 02/26/24 tablet (Nitrostat) pain #20 tabs atorvastatin 80 mg tablet 80 mg PO DAILY #90 tabs 09/21 11/13 prasugrel HCl 10 mg tablet 10 mg PO DAILY #90 tabs 08/16 (Effient) famotidine 40 mg tablet (Pepcid) 40 mg PO DAILY #30 ta bs 01/03/25 bupropion HCl 150 mg 24 hr tablet, See Rx Instructions .Route 02/06/25 extended release .COMPLEX #30 tabs evolocumab 140 mg/mL subcutaneous 140 mg SQ Q2W #2 mL 03/22/25 pen injector (Repatha SureClick) Allergies Allergy/AdvReac Type Severity Reaction Status Date / Time No Known Allergies Allergy Verified 06/05/25 13:55 [facility] Disclaimer: The information contained in this section may have been updated after the patient was seen, as this information can be updated by other users. Medical History Vertigo Sinusitis History of colon polyps Nystagmus due to benign paroxysmal positional vertigo Atypical angina Abnormal findings on diagnostic imaging of heart and coronary circulation Fatigue Dizziness Bradycardia Right arm pain Tobacco user Unstable angina Angina pectoris Abnormal result of cardiovascular function study Typical angina Allergies Hyperlipemia Hx of factor V Leiden mutation History of CVA (cerebrovascular accident) History of [place] (myocardial infarction) Hypertension HHD (hypertensive heart disease) CAD (coronary artery disease) Surgical History History of cardiac cath Family History Father Family history of myocardial infarction Stroke Family/Other Brain tumor Alzheimer disease Grandmother Alzheimer disease Social History Smoking Status: Current every day smoker tobacco type: cigarettes packs per day: 1 years smoked: 42 alcohol intake: current alcohol intake frequency: 0-2 drinks per day substance use type: denies use current occupational status: employed Travel in the last 8 weeks?: Inside the [place] household members: spouse housing: house lives independently: Yes marital status: caffeine: Yes special sariah needs: No agree to transfusion: No do you feel safe at home: Yes victim of physical abuse: No victim of emotional abuse: No victim of sexual abuse: No would you like helpful sources: No Have you lived/traveled outside [place] in past 30 days?: No Contact w/someone who lives/traveled outside US past 30 days?: No Exposure to someone with infectious disease in past 14 days?: No Do you have a fever (greater than 100.4 F or 38 C)?: No Have you tested positive for COVID-19?: No Exposed to someone with COVID-19 in past 14 days?: No Do you have a sore throat?: Yes Do you have a cough?: No Do you have any weakness?: No Do you have any diarrhea?: No Are you experiencing any unusual bleeding?: No Do you have any muscle aches/pain?: Yes Do you have any abdominal pain?: No Are you experiencing loss of taste or smell?: No Other Medical History Have you received the Flu Vaccine for this season: No Have you received the Pneumonia Vaccine: No ROS Obtained: Yes Systems reviewed as appropriate & no additional complaints except as documented Physical Exam General General appearance: alert and in no apparent distress Comment: Active hiccups Head Head exam: atraumatic Eye Eye exam: Present normal appearance ENT ENT exam: Present normal external ear exam; Absent normal oropharynx (Mild posterior oropharyngeal erythema without tonsillar swelling or exudate. Uvula midline) Neck Neck exam: Present full ROM Chest Chest inspection: Present symmetric chest wall rise Respiratory Respiratory exam: Present normal lung sounds bilaterally; Absent respiratory distress, wheezes or stridor Cardiovascular Cardiovascular exam: Present regular rate and normal rhythm Abdominal Exam Abdominal exam: Present soft; Absent tenderness or guarding exam: Present deferred Extremities Exam Extremities exam: Present normal inspection Back Exam Back exam: Present normal inspection Neurological Exam Neurological exam: Present alert and oriented X3 Psychiatric Psychiatric exam: Present normal affect Skin Skin exam: Present warm and dry Medical Decision Making Medical Records Screening: Per USPSTF and CDC recommendations, given the prevalence of disease in our region, it is our hospital?s policy to screen for HIV and viral Hepatitis for all patients aged 18 and over and those with ongoing risk factors. Qamar Inquiry Pt receiving controlled substance: No Vital Signs: 06/07/25 09:22 06/07/25 10:07 06/07/25 10:31 Temperature 99.4 F Temperature Source Oral Pulse Rate 76 Pulse Rate [Radial] 88 Respiratory Rate 18 Blood Pressure 96/66 L Blood Pressure [Left Arm] 112/64 Blood Pressure Mean [Left Arm] 80 Blood Pressure Source [Left Arm] Automatic Cuff Blood Pressure Position [Left Arm] Sitting 02 Sat by Pulse Oximetry 95 96 Oxygen Delivery Method Room Air Room Air Room Air 06/07/25 11:29 Temperature 99.4 F Temperature Source Pulse Rate 76 Pulse Rate [Radial] Respiratory Rate 20 Blood Pressure 105/51 L Blood Pressure [Left Arm] Blood Pressure Mean [Left Arm] Blood Pressure Source [Left Arm] Blood Pressure Position [Left Arm] 02 Sat by Pulse Oximetry Oxygen Delivery Method Lab Data Lab Results 06/07/25 09:37: SARS-CoV-2 (PCR) Not detected, Influenza A Untype (PCR) Detected A, Influenza Type B (PCR) Not detected 06/07/25 10:12: WBC 6.7, RBC 4.75, Hgb 15.7, Hct 44.8, MCV 94.3 H, MCH 33.1 H, MCHC 35.0, RDW 13.0, Plt Count 155, MPV 9.2, Neut % (Auto) 60.3, Lymph % (Auto) 27.6, [place] % (Auto) 11.6 H, Eos % (Auto) 0.1, Baso % (Auto) 0.1, Neut # (Auto) 4.1, Lymph # (Auto) 1.9, [place] # (Auto) 0.8, Eos # (Auto) 0.0, Baso # (Auto) 0.0, Sodium 136, Potassium 4.0, Chloride 104, Carbon Dioxide 25, Anion Gap 11.0, BUN 22 H, Creatinine 1.50 H, Estimated Creat Clear 63, Estimated GFR 48 L, Est GFR ( Amer) 58 L, Glucose 100, Calcium 8.7, Total Bilirubin 0.7, AST 39, ALT 23, Alkaline Phosphatase 83, Troponin I 0.02, NT-Pro-B Natriuret Pep 321 H, Total Protein 7.1, Albumin 4.3, Globulin 2.8, Albumin/Globulin Ratio 1.5 06/07/25 10:12 06/07/25 10:12 Orders (Tests/Meds): ED MEDICATIONS Discontinued Medications Generic Name Dose Route Start Last Admin Trade Name Calvinq PRN Reason Stop Dose Admin Acetaminophen 1,000 mg 06/07/25 09:45 06/07/25 09:56 Acetaminophen 500mg Tab PO 06/07/25 09:46 1,000 mg ONCE ONE Administration Chlorpromazine HCl 25 mg 06/07/25 09:41 06/07/25 10:06 Chlorpromazine 25mg Tablet PO 06/07/25 09:42 25 mg ONCE ONE Administration Ibuprofen 600 mg 06/07/25 09:45 06/07/25 09:56 Ibuprofen 600 Mg Tablet PO 06/07/25 09:46 600 mg ONCE ONE Administration Tetracycl/Hydrocort/Nystatin/Diphen 15 ml 06/07/25 09:37 06/07/25 09:55 Magic Mouthwash 300ml Bottle PO 06/07/25 09:38 15 ml ONCE ONE Administration ORDERS Category Date Time Status CXR --portable [XR chest portable] Stat Exams 06/07/25 09:37 Completed BNP [NT Pro Brain Natriuretic Pep.] Stat Lab 06/07/25 10:12 Completed CBC w/Auto Diff [Complete Blood Count Auto Diff] Stat Lab 06/07/25 10:12 Completed CMP [Comprehensive Metabolic Panel] Stat Lab 06/07/25 10:12 Completed Rapid PCR Covid and Flu A/B Stat Lab 06/07/25 09:37 Completed Troponin I Q3H Lab 06/07/25 13:15 Ordered Troponin I Q3H Lab 06/07/25 16:15 Ordered Troponin I Stat Lab 06/07/25 10:12 Completed EKG Request [ECG Request] Stat Y 06/07/25 09:37 Ordered Medical Decision Narrative: Kris Sneed is a 59-year-old male with history of coronary artery disease, coronary stents, hypertension who presents to the emergency department for complaints of cough, sore throat and runny nose. Patient states that he has developed headache, sore throat and sinus congestion starting yesterday morning as well as a mild dry cough. Patient also states that he has developed hiccups since 6 PM last night. He states that drinking cold water with temporary make the hiccups go away but then they come right back. He denies any fever. He denies any significant shortness of breath. He states that he only has chest discomfort when he is actively having a hiccup. He denies any known sick contacts. On arrival, patient is afebrile, maintaining appropriate oxygen saturation on room air, normotensive, heart rate within normal limits. Physical exam, stated above, revealed nontoxic-appearing male in no significant distress. He is alert and answering questions appropriately. Cardiopulmonary exam without wheezing, rales or rhonchi. He has some mild posterior oropharyngeal erythema without tonsillar swelling or exudates. Uvula is midline. No cervical lymphadenopathy. He does appear mildly congested nasally. Differential diagnosis includes, but is not limited to: Viral upper respiratory infection, sinusitis, low concern for strep pharyngitis given patient's active cough and viral symptoms and reassuring physical exam. Will obtain chest x-ray to rule out pneumonia. Is only slightly uncomfortable when he is actively having a hiccup. Will give 25 mg p.o. Thorazine for hiccups. Will obtain rapid COVID and flu testing. EKG was interpreted by me personally. Normal sinus rhythm. No ST elevation or depression. Patient does have isolated T wave inversions that are nonspecific in lead III. Chest x-ray interpreted by me personally. No focal consolidation, no pneumothorax, no widened mediastinum, no enlargement of the cardiac silhouette. Unremarkable chest x-ray. See radiology report for details. Laboratory workup was obtained as well that showed normal white count, mild DANITA with creatinine of 1.5 and BUN of 22, likely prerenal in nature. Initial troponin is at 0.02, which is his baseline. NT proBNP very mildly elevated 321. Liver enzymes and bili were within normal limits. Patient is influenza A positive, which I do feel explains his symptoms. On reassessment, patient states that his hiccups have resolved. He overall feels well. I do feel that he is appropriate discharge at this time. Recommended Tylenol and ibuprofen to help with flulike symptoms. Continued hydration. I encouraged follow-up with his primary care doctor this week for recheck of his lab work to ensure that his kidney function is improving. All questions were answered. Return precautions were given. He demonstrated understanding and was in agreement this plan. He was then discharged from the emergency department in stable condition peer Critical Care Critical Care Time Critical Care Time: No
[2025-06-07 09:42] LABS: Coronavirus 19, PCR Not Detected (NotDetected); Influenza B, PCR Not Detected (NotDetected)
--- NOTE | 2025-06-07 09:44 | ECG_ITS ---
APPROVED REPORT Exam: Resting ECG HR:75 bpm ECG Measurements Heart Rate 75 AXES WI 176 P 57 QRSd 96 QRS 66 QT 340 T -2 QTc 369 Conclusion SINUS RHYTHM POSSIBLE ANTERIOR MYOCARDIAL INFARCTION , OF INDETERMINATE AGE [30 ms Q WAVE IN V3/V4, OR R < 0.2 mV IN V4] ABNORMAL ECG UNCONFIRMED REPORT Normal sinus rhythm. Isolated T wave inversion in lead III. no STEMI Electronically signed by : MAURICE ROSADO, 06/09/2025 21:36:15
[2025-06-07] MEDS: MAGIC MOUTHWASH 300ML BOTTLE 15 ML PO (09:55)
[2025-06-07] MEDS: ACETAMINOPHEN 500MG TAB 1000 MG PO (09:56)
[2025-06-07] MEDS: IBUPROFEN 600 MG TABLET PO (09:56)
[2025-06-07] MEDS: CHLORPROMAZINE 25MG TABLET 25 MG PO (10:06)
[2025-06-07 10:17] LABS: Hematocrit 44.8 % (42.0-52.0); Hemoglobin 15.7 g/dL (14.1-18.0); Immature Granulocytes % 0.3 %; Mean Corpuscular HGB Conc 35.0 g/dL (31.8-35.4); Mean Corpuscular Hemoglobin 33.1 pg (27.0-31.2); Mean Corpuscular Volume 94.3 fl (80-94); Nucleated Red Blood Cells % 0 %; Platelet Count 155 K/mm3 (142-424); Red Blood Count 4.75 M/mm3 (4.60-6.20); Red Cell Distribution Width-SD 44.5 fL; White Blood Count 6.7 K/mm3 (4.8-10.8)
[2025-06-07 10:21] LABS: Influenza A, PCR Detected (NotDetected)
[2025-06-07 10:29] LABS: Alanine Aminotransferase 23 U/L (12-78); Albumin Level 4.3 g/dl (3.5-5.0); Albumin/Globulin Ratio 1.5 (1.1-1.8); Alkaline Phosphatase 83 U/L (38-126); Anion Gap 11.0 mEq/L (5-15); Aspartate Amino Transferase 39 U/L (17-59); Bilirubin,Total 0.7 mg/dl (0.2-1.3); Blood Urea Nitrogen 22 mg/dl (9-20); Calcium 8.7 mg/dl (8.4-10.2); Carbon Dioxide 25 mmol/L (22.0-30.0); Chloride 104 mmol/L (98-107); Creatinine Clearance Estimated 63 mL/min (50-200); Creatinine,Serum 1.50 mg/dl (0.66-1.25); Estimated Glomerular Filt Rate 48 ml/min (>60); GFR (African American) 58 ML/MIN (>60); Globulin 2.8 g/dL (1.3-3.2); Glucose 100 mg/dl (74-100); Potassium 4.0 mmoL/L (3.5-5.1); Sodium 136 mmol/L (136-145); Total Protein,Serum 7.1 g/dl (6.3-8.2)
[2025-06-07 10:31] VITALS: BP 96/66; PULSE 76; O2SAT 96
[2025-06-07 10:40] LABS: NT Pro Brain Natriuretic Pep. 321 pg/mL (0-125); Troponin I 0.02 ng/ml (0.00-0.034)
--- OUTSIDE RECORDS SUMMARY | 2025-06-07 10:42 | XMS_ITS | Clinical Summary ---
Author Organization [facility] Address [address] [place] [address] Care Team Providers Care Associate Merchant Name Role Phone Tod Valderrama MD Primary Care Provider Stiven Gonzalez Unavailable [phone] Allergies No known active allergies Medications [...] 0.5 tablets by mouth daily. 06/30/2024 Active prasugrel (Effient) 10 MG tablet Take 1 tablet by mouth daily. 09/13/2024 Active famotidine (Pepcid) 40 MG tablet Take 1 tablet by mouth daily. Active nitroglycerin (Nitrostat) 0.[address] 1 tablet under the tongue every 5 minutes as needed for chest pain. 25 tablet 1 04/19/2025 Active Active Problems Problem Noted Date Diagnosed Date Aneurysm of ascending aorta without rupture 03/23 BMI 29.0-29.9,adult 10/12/2024 Encounters Date Type Department Care Team Description 04/19/2025 11:00 AM EDT Office Visit [facility] [address], [address] [place] [phone] Grady Schmid MD Aneurysm of ascending aorta without rupture (CMS/HCC) (Primary Dx) 04/19/2025 8:52 AM EDT - 04/19/2025 11:59 PM EDT Hospital Encounter [facility] [address] [place] [address] Aneurysm of ascending aorta without rupture (CMS/HCC) Discharge Disposition: Home or Self Care 04/19/2025 Travel from Last 3 Months Social History Tobacco Use Types Packs/Day Years [...] Mass Index 29.21 04/19/2025 11:34 AM EDT Plan of Treatment Upcoming Encounters Date Type Department Care Team (Late st Contact Info) Description 04/11/2026 10:00 AM EDT Appointment [facility] [address] [place] [phone] 04/11/2026 12:45 PM EDT Office Visit [facility] [address], [address] [place] [phone] Grady Schmid MD [address] [place] [id number] Health Maintenance Due Date Last Done Comments [...] 2010 [facility]-Zoster Vaccines (1 of 2) 09/10/2015 [id number] Vaccine (1 - season) 2025 [facility]-Influenza Vaccine (#1) 2025 [facility]-Obesity Intervention Completed 025, 10/12/2024 HPV Vaccines (No Doses Required) Completed [facility]-HIB Vaccines Aged Out No longer e [...] on patient's age to complete this topic Procedures Procedure Name Priority Date/Time Associated Diagnosis Comments CT ANGIO CHEST Routine 04/19/2025 9:48 AM EDT Aneurysm of ascending aorta without rupture (CMS/HCC) from Last 3 Months Results * CT Angio Chest (04/19/2025 9:48 [...] Omnipaque 350 was administered during the examination. [id number] workstation manipulation and review of the data [...] Percy T[facility] IMG CT PROCEDURES Final Result from Last 3 Months Insurance Care Teams Associate Merchant Relationship Specialty Start Date End Date Tod Valderrama MD PCP - General Family Medicine 10/12/24 Stiven Rodarte PA [facility] [place] [id number] Referring Physician 10/13/24
--- OUTSIDE RECORDS SUMMARY | 2025-06-07 10:42 | XMS_ITS | Encounter Summary ---
Author Organization [facility] Address [address] [place] [address] Care Team Providers Care Equipment Service Engineer Name Role Phone Tod Valderrama MD Primary Care Provider Stiven Gonzalez Unavailable [phone] Encounter Details Date Type Department Care Team (Latest Contact Info) Description 04/19/2025 Travel Social History Tobacco Use Types Packs/Day Years [...] EDT Appointment [facility] [address] [place] [address] 04/11/2026 12:45 PM EDT Office Visit [facility] [address], [facility] [address] [place] [address] Grady Schmid MD [id number] [place] [address] documented as of this encounter Visit Diagnoses Not on filedocumented in this encounter Additional Health Concerns Assessment Noted Time A fall risk assessment has been complete d for the patient 10/12/2024 11:02 AM EDT A Body Mass Index follow-up plan has been documented for the patient 04/19/2025 12:28 PM EDT documented as of this encounter Care Teams Equipment Service Engineer Relationship Specialty Start Date End Date Tod Valderrama MD PCP - General Family Medicine 10/12/24 Stiven Rodarte PA [address] [place] [address] [place] [id number] Referring Physician 10/13/24 documented as of this encounter
--- OUTSIDE RECORDS SUMMARY | 2025-06-07 10:43 | XMS_ITS | Clinical Summary ---
Author Organization [facility] Address [address] [place] [address] Care Team Providers Care International Trade Teacher Name Role Phone Provider, No Known Primary Care Provider [phone] Allergies No known active allergies Medications aspirin [...] MG SL tabletIndicatio ns:Coronary artery disease involving [place] coronary artery of [place] heart with angina pectoris 1 under the [...] 0 11/28/2015 Coronary artery disease invo lving [place] coronary artery of [place] heart with angina pectoris 11/28/2015 Hypercholesteremia 11/28/2015 [...] 10:54 AM EST Coronary artery disease involving [place] coronary artery of [place] heart with angina pectoris Hypercholesteremia from Last 3 Months or Most Recently Relevant to Health Maintenance Results * (ABNORMAL) Lipid Panel (07/10/2017 10:54 AM EST) Total Cholesterol 165 0 - 200 mg/dL 07/10/2017 11:35 AM EST [facility] Triglycerides 194(H) 0 - 150 mg/dL 07/10/2017 11:35 AM EST [facility] HDL Cholesterol 32(L) 40 - 60 mg/dL 07/10/2017 11:35 AM EST [facility] LDL Cholesterol 118 0 - 130 mg/dL 07/10/2017 11:35 AM EST [facility] Blood Venipuncture / Unknown 07/10/2017 10:54 AM EST 07/10/2017 10:54 AM EST [facility] - 07/10/2017 11:35 AM EST Cholesterol [...] TINAJERO LAB BLOOD ORDERABLES Final Re sult [facility]
[address] [place] [address], from Last 3 Months or Most Recently Relevant to Health Maintenance Care Teams International Trade Teacher Relationship Specialty Start Date End Date Provider, [place] [address] PCP - General 11/19/15
--- OUTSIDE RECORDS SUMMARY | 2025-06-07 10:43 | XMS_ITS | Encounter Summary ---
Author Organization [facility] Address [address] [place] [address] Care Team Providers Care Molder Helper Name Role Phone Roman Baker MD Primary Care Provider [phone] Tod Valderrama MD Primary Care Provider Yani Stiven Hussein Unavailable [phone] Encounter Details Date Type Department Care Team (Late Contact Info) Description 10/23/2022 Orders Only External Location [address] [place] [address] Provider, External Social History Tobacco Use Types Packs/Day Years Used Date Smoking Tobacco: Never Assessed Sex and Gender Information Value Date Recorded Sex Assigned at Not on file Legal Sex Male 7:29 PM EDT Gender Identity Not on file Sexual Orientation Not on file documented as of this encounter Plan of Treatment Upcoming Encounters Date Type Department Care Team (Late Contact Info) Description 04/11/2026 10:00 AM EDT Appointment [facility] [address] [place] [address] 04/11/2026 12:45 PM EDT Office Visit [facility] [address], [address] [place] [address] Grady Schmid MD [address] [place] [address] documented as of this encounter Procedures Procedure [...] on filedocumented in this encounter Care Teams Molder Helper Relationship Specialty Start Date End Date Roman Baker MD [address] [place] [address] PCP - General 11/02/20 10/11/24 oTd Valderrama MD [address] [place] [phone] PCP - General Family Medicine 10/12/24 Stiven Rodarte PA [address] [place] [address] [place] [id number] Referring Physician 10/13/24 documented as of this encounter
[2025-06-07 11:29] VITALS: BP 105/51; PULSE 76; RESP 20; TEMP 37.4; O2SAT 96
== END 2025-06-07 11:40 | disposition home or self-care (01) ==
PROVIDERS: Emergency Provider Student in an Organized Health Care Education/Training Program; PCP Family Medicine
DX: J10.1 Influenza due to other identified influenza virus with other respiratory manifestations (principal); R51.9 Headache, unspecified; N17.9 Acute kidney failure, unspecified; F17.210 Nicotine dependence, cigarettes, uncomplicated; R79.89 Other specified abnormal findings of blood chemistry
CPT/HCPCS: 71045; 80053; 83880; 84484; 85025; 87636; 93005; 99284; 99285

== ENCOUNTER 2025-06-13 10:12 | Outpatient (CLI) | payer OTHER, SELFPAY ==
--- OUTSIDE RECORDS SUMMARY | 2025-04-19 07:52 | XMS_ITS | Encounter Summary ---
Author Organization [facility] Address [address] [place] [address] Care Team Providers Care Polymer Specialist Name Role Phone Tod Valderrama MD Primary Care Provider Stiven Gonzalez Unavailable [phone] Reason for Referral * Imaging (Routine) - Closed Specialty Diagnoses / Procedures Referred By Contac t Referred To Contact Radiology Diagnoses Aneurysm of ascending aorta without rupture (CMS/HCC) Procedures CT Angio Chest Percy Munoz PA [address] [address] Phone: tel: fax: Referral ID Status Reason Start Date Expiration Date Visits Re quested Visits Authorized [id number] Closed 10/12/2024 04/13/2026 1 1 Reason for Visit * Imaging (Routine) - Closed Specialty Diagnoses / Procedures Referred By Contac t Referred To Contact Radiology Diagnoses Aneurysm of ascending aorta without rupture (CMS/HCC) Procedures CT Angio Chest Percy Munoz PA [address] [facility] [address] [place] [address] Phone: tel: fax: Referral ID Status Reason Start Date Expiration Date Visits Re quested Visits Authorized [id number] Closed 10/12/2024 04/13/2026 1 1 Encounter Details Date Type Department Care Team (Latest Contact Info) Description 04/19/2025 8:52 AM EDT - 04/19/2025 11:59 PM EDT Hospital Encounter [facility] [address] [place] [address] Aneurysm of ascending aorta without rupture ([facility]) Discharge Disposition: Home or Self Care Social History Tobacco Use Types Packs/Day Years Used Date Smoking Tobacco: Every Day Cigarettes Smokeless Tobacco: Never Alcohol Use Standard Drinks/Week Comments Not Asked 0 (1 standard drink = 0.6 oz pur e alcohol) occasionally Sex and Gender Information Value Date Recorded Sex Assigned at Not on file Legal Sex Male 7:29 PM EDT Gender Identity Not on file Sexual Orientation Not on file documented as of this encounter Mental Status * Injection Rate mL/s Answer Entry Date Author 4 04/19/2025 9:52 AM EDT Jay Powell documented in this encounter Medications at Time of Discharge ASPIRIN 81 MG chewable tablet Chew 1 tablet daily. atorvastatin (Lipitor) 80 MG tablet Take 1 tablet by mouth daily. 06/30/2024 buPROPion XL (Wellbutrin XL) 150 MG 24 hr tablet Take 1 tablet by mouth every morning. 09/13/2024 famotidine (Pepcid) 40 MG tablet Take 1 tablet by mouth daily. losartan (Cozaar) 50 MG tablet Take 0.5 tablets by mouth daily. 04/18/2024 nitroglycerin (Nitrostat) 0.[address] 1 tablet under the tongue every 5 minutes as needed for chest pain. 25 tablet 1 04/19/2025 prasugrel (Effient) 10 MG tablet Take 1 tablet by mouth daily. 09/13/2024 Repatha SureClick 140 MG/ML solution auto-injector Inject 1 mL under the skin every 14 (fourteen) days. 08/18/2024 amoxicillin (Amoxil) 500 MG capsule Take 1 capsule by mouth 3 (three) times a day. 10/11/2024 metoprolol succinate XL (Toprol-XL) 25 MG 24 hr tablet Take 0.5 tablets by mouth daily. 06/30/2024 documented as of this encounter Miscellaneous Notes * Stacie Avila - 04/19/2025 9:04 AM EDT Images from the original note were not included. 1639 Caring for Yourself after Contrast Imaging If you had ORAL contrast: ? You can go back to your normal diet and activities as tolerated. ? Drink plenty of fluids, unless told otherwise. If you had IV contrast: ? You can go back to your normal diet and activities as tolerated. ? Drink plenty of fluids, unless told otherwise. ? Leave a bandage on the site for 30 minutes (where the IV was inserted or blood was drawn). If you had Intravesical (bladder) contrast: ? Return to normal diet and activity. What you need to know about delayed reaction to IV contrast What is IV Contrast? ? Contrast is a dye that is put into your body through an IV. ? It is used for imaging scans such as CT scans and MRIs. ? The contrast makes blood vessels, organs and other parts of your body show up better on the scan. What do I need to do after IV contrast? ? Drink lots of fluids. This will help flush the contrast out of your system. ? Drink 2-3 extra glasses or bottles of water within 4 hours of your scan. What is a contrast reaction? ? A contrast reaction is a bad side effect from the contrast dye. ? It is rare but it does happen. ? They can be mild - such as sneezing, itching, or hives. ? They can be severe - such as trouble breathing, throat swelling, and irregular heart beat. When do these reactions happen? ? They often happen right after the contrast is injected. ? Some happen hours after going home. Go to the nearest Emergency Department right away if you have any of these symptoms after you leavethe clinic or hospital. ? Sneezing ? Itching in your mouth, throat, eyes, ears, or skin ? Rash or hives ? Throwing up or stomach sickness ? High heart rate or ?racing? of your heart ? Feeling dizzy or woozy ? Feeling short of breath or like you can?t take a deep breath ? Feeling very anxious for no other reason It is very important that these reactions be treated. Tell the doctor or nurse that you are having a reaction to IV contrast dye. Do not ignore any sign of a reaction! All reactions must be assessed by a doctor. Call 911 if you are alone and your reaction is more than mild sneezing or itching. If you have a mild reaction, call to speak with a Radiologist, explain that you havehad a contrast reaction, as this needs to be added to your medical record. documented in this encounter Plan of Treatment Upcoming Encounters Date Type Department Care Team (Late st Contact Info) Description 04/11/2026 10:00 AM EDT Appointment [facility] [address] [place] [address] 04/11/2026 12:45 PM EDT Office Visit [facility] [address], [address] [place] [address] Grady Schmid MD [address] [place] [address] documented as of this encounter Procedures Procedure Name Priority Date/Time Associated Diagnosis Comments CT ANGIO CHEST Routine 04/19/2025 9:48 AM EDT Aneurysm of ascending aorta without rupture (CMS/HCC) documented in this encounter Results * CT Angio Chest (04/19/2025 9:48 AM EDT) Anatomical Region Laterality Modality Chest Computed Tomogra phy Impressions 04/19/2025 1:50 PM EDT Ascending thoracic aortic aneurysm with maximum diameter of 4.5 cm. CRITICAL RESULT: No COMMUNICATION: Per this written report. By electronically signing this report, I, the attending physician, attest that I have personally reviewed the images/data for the above examination(s) and agree with the final edited report. Drafted by Ruben Falcon MD on 04/19/2025 10:05 AM Final report signed by Campbell Dennis MD on 04/19/2025 1:50 PM Narrative 04/19/2025 1:50 PM EDT CLINICAL INDICATION: Aortic aneurysm suspected TECHNIQUE: A CT angiogram of the chest was performed in arterial phase. A total of 80 mL of Omnipaque 350 was administered during the examination. Advanced 3D workstation manipulation and review of the data set was performed by the interpreting physician to further define anatomy and possible pathology. Images of areas of interest were created utilizing various techniques. These images were saved and transferred to PACS if significant. The imaging protocol used in this examination was optimized to achieve diagnostic quality with the lowest possible radiation dose in accordance with the principles of ALARA (As Low As Reasonably Achievable). COMPARISON: Outside CTA chest 09/30/2024 VASCULAR FINDINGS: Ascending thoracic aortic aneurysm, with maximum diameter of 4.5 cm. No dilation of the aortic root with preservation of the sinotubular junction. Trileaflet aortic valve without calcification. Mild calcified and noncalcified atherosclerotic plaque within the thoracic aorta, greatest at the inferior descending thoracic aorta. Standard three-vessel aortic arch with patent great vessels. Visualized portion of the abdominal aorta is of normal caliber. Celiac artery is patent. Splenic artery is patent. No aortic dissection or other acute aortic abnormality. No pulmonary embolism is identified. ANCILLARY FINDINGS: Subcentimeter cystic appearing hypoenhancing right thyroid lobe lesion, which is likely benign (series 4, image 16). Coronary arterial stents and atherosclerosis. No pericardial effusion. No mediastinal lymphadenopathy. Central airways are patent. Reticular opacities in the bilateral lung bases, decreased since the comparison study, most likely atelectatic in etiology. Minimal paraseptal emphysema. No suspicious pulmonary nodule. No suspicious lesion in the abdomen or pelvis. No suspicious lytic or sclerotic osseous lesion. Procedure Note Campbell Dennis MD - 04/19/2025 CLINICAL INDICATION: Aortic aneurysm suspected TECHNIQUE: A CT angiogram of the chest was performed in arterial phase. A total of80 mL of Omnipaque 350 was administered during the examination. [id number] workstation manipulation and review of the data set was performed bythe interpreting physician to further define anatomy and possiblepathology. Images of areas of interest were created utilizing varioustechniques. These images were saved and transferred to PACS ifsignificant. The imaging protocol used in this examination was optimized to achievediagnostic quality with the lowest possible radiation dose in accordancewith the principles of ALARA (As Low As Reasonably Achievable). COMPARISON: Outside CTA chest 09/30/2024 VASCULAR FINDINGS: Ascending thoracic aortic aneurysm, with maximum diameter of 4.5 cm. Nodilation of the aortic root with preservation of the sinotubular junction.Trileaflet aortic valve without calcification. Mild calcified andnoncalcified atherosclerotic plaque within the thoracic aorta, greatest atthe inferior descending thoracic aorta. Standard three-vessel aortic archwith patent great vessels. Visualized portion of the abdominal aorta is of normal caliber. Celiacartery is patent. Splenic artery is patent. No aortic dissection or other acute aortic abnormality. No pulmonaryembolism is identified. ANCILLARY FINDINGS: Subcentimeter cystic appearing hypoenhancing right thyroid lobe lesion,which is likely benign (series 4, image 16). Coronary arterial stents andatherosclerosis. No pericardial effusion. No mediastinallymphadenopathy. Central airways are patent. Reticular opacities in the bilateral lungbases, decreased since the comparison study, most likely atelectatic inetiology. Minimal paraseptal emphysema. No suspicious pulmonary nodule. No suspicious lesion in the abdomen or pelvis. No suspicious lytic or sclerotic osseous lesion. IMPRESSION: Ascending thoracic aortic aneurysm with maximum diameter of 4.5 cm. CRITICAL RESULT: No COMMUNICATION: Per this written report. By electronically signing this report, I, the attending physician, attestthat I have personally reviewed the images/data for the aboveexamination(s) and agree with the final edited report. Drafted by Ruben Falcon MD on 04/19/2025 10:05 AM Final report signed by Campbell Dennis MD on 04/19/2025 1:50 PM [facility] IMG CT PROCEDURES Final Result documented in this encounter Visit Diagnoses Diagnosis Aneurysm of ascending aorta without rupture (CMS/HCC) documented in this encounter Administered Medications Inactive Administered Medications - up to 3 most recent administrations Medication Order MAR Action Action Date Dose Rate Site iohexol (OMNIPaque) 350 MG/ML injection 80 mL 80 mL, Intravenous, Once in imaging, 1 dose, Starting on Thu04/19/25 at 0904, Until Thu04/19/25 at 0952, Routine, Imaging Protocol Orders Given 04/19/2025 9:52 AM EDT 80 mL documented in this encounter Additional Health Concerns Assessment Noted Time A fall risk assessment has been complete d for the patient 10/12/2024 11:02 AM EDT A Body Mass Index follow-up plan has been documented for the patient 04/19/2025 12:28 PM EDT documented as of this encounter Care Teams Polymer Specialist Relationship Specialty Start Date End Date Tod Valderrama MD PCP - General Family Medicine 10/12/24 Stiven Rodarte PA [address] [place] [address] [place] [address] Referring Physician 10/13/24 documented as of this encounter
--- OUTSIDE RECORDS SUMMARY | 2025-04-19 10:00 | XMS_ITS | Encounter Summary ---
Author Organization [facility] Address [address] [place] [address] Care Team Providers Care Relationship Counselor Name Role Phone Tod Valderrama MD Primary Care Provider Stiven Gonzalez Unavailable [phone] Reason for Referral * Imaging (Routine) - Pending Review Specialty Diagnoses / Procedures Referred By Contac t Referred To Contact Radiology Diagnoses Aneurysm of ascending aorta without rupture (CMS/HCC) Procedures CT Angio Chest Grady Schmid MD [address] [address] Phone: tel: fax: Referral ID Status Reason Start Date Expiration Date V isits Requested Visits Authorized [id number] Pending Review 04/19/2025 10/19/2026 1 1 Encounter Details Date Type Department Care Team (Late st Contact Info) Description 04/19/2025 11:00 AM EDT Office Visit [facility] [address], [address] [place] [phone] Grady Schmid MD [address] [address] Aneurysm of ascending aorta without rupture (CMS/HCC) (Primary Dx) Social History Tobacco Use Types Packs/Day Years [...] on file documented as of this encounter Last Filed Vital Signs Vital Sign Reading Time Taken Comments Blood Pressure 128/84 04/19/2025 11:34 AM EDT Pulse 83 04/19/2025 11:34 AM EDT Temperature - - Respiratory Rate - - Oxygen Saturation 97% 04/19/2025 11:34 AM EDT Inhaled Oxygen Concentration - - Weight 82.1 kg (181 lb) 04/19/2025 11:34 AM EDT Height 167.6 cm (5' 6 ) 04/19/2025 11:34 AM EDT Body Mass Index 29.21 04/19/2025 11:34 AM EDT documented in this encounter Functional Status * BP Answer Date of Assessment Author 128/84 04/19/2025 11:34 AM EDT Amber East * Pulse Answer Date of Assessment Author 83 04/19/2025 11:34 AM EDT Amber East * SpO2 Answer Date of Assessment Author 97 04/19/2025 11:34 AM EDT Amber East * Height Answer Date of Assessment Author 66 04/19/2025 11:34 AM EDT Amber East * Weight Answer Date of Assessment Author 2895.96 04/19/2025 11:34 AM EDT Amber East * BMI (Calculated) Answer Date of Assessment Author 29.3 04/19/2025 11:34 AM EDT Amber East * Percent Excess Weight Loss Answer Date of Assessment Author 0 04/19/2025 11:34 AM EDAmber Moseley * Total Weight Change Percent Answer Date of Assessment Author 2222 04/19/2025 11:34 AM EDT Amber East * Weight Change Since Preop Answer Date of Assessment Author 82.08 04/19/2025 11:34 AM EDAmber Moseley * Initial Excess Weight Answer Date of Assessment Author -64.41 04/19/2025 11:34 AM EDT Greenwel l, Amber * IBW in lbs (Bariatric) Answer Date of Assessment Author 142 04/19/2025 11:34 AM EDT Greenwel l, Amber * Weight Change Since Last Visit Answer Date of Assessment Author 82.08 04/19/2025 11:34 AM EDT Greenwel l, Amber * IBW in kg (Bariatric) Answer Date of Assessment Author 64.41 04/19/2025 11:34 AM EDT Greenwel l Amber * Percent of IBW Answer Date of Assessment Author 4,496.13 04/19/2025 11:34 AM EDT Greenwel l Amber * EBW (kg) Answer Date of Assessment Author 2,894.13 04/19/2025 11:34 AM EDT Greenwel l Amber * EBW (lbs) Answer Date of Assessment Author 2,887.09 04/19/2025 11:34 AM EDT Corry moser Amber * Weight Change 24 hrs Answer Date of Assessment Author 1 04/19/2025 11:34 AM EDT Greenwel l Amber * BSA (Calculated - sq m) Answer Date of Assessment Author 1.96 04/19/2025 11:34 AM EDT Greenwel l Amber * BMI (Calculated) Answer Date of Assessment Author 29.23 04/19/2025 11:34 AM EDT Greenwel l Amber * IBW/kg (Calculated) Male Answer Date of Assessment Author 63.8 04/19/2025 11:34 AM EDT Greenwel l Amber * IBW/kg (Calculated) Female Answer Date of Assessment Author 59.3 04/19/2025 11:34 AM EDT Greenwel l Amber * IBW/kg (Calculated) Answer Date of Assessment Author 63.8 04/19/2025 11:34 AM EDT Greenwel l Amber * Weight in (lb) to have BMI = 25 Answer Date of Assessment Author 154.6 04/19/2025 11:34 AM EDT Greenwel l Amber * BMI (Calculated) Answer Date of Assessment Author 29.3 04/19/2025 11:34 AM EDT Greenwel l Amber * Percent Excess Weight Loss Answer Date of Assessment Author 0 04/19/2025 11:34 AM EDT Julia Easte * Weight Change Since Preop Answer Date of Assessment Author 82.1 04/19/2025 11:34 AM EDT Robbi Eastlie * Initial Excess Weight Answer Date of Assessment Author -64.41 04/19/2025 11:34 AM EDT Julia Easte * IBW in kg (Bariatric) Answer Date of Assessment Author 64.41 04/19/2025 11:34 AM EDT Robbi Eastlie * IBW in lb (Bariatric) Answer Date of Assessment Author 142 04/19/2025 11:34 AM EDT Julia Easte * Weight Change Since Last Visit Answer Date of Assessment Author 82.1 04/19/2025 11:34 AM EDT Amber East * Percent of IBW Answer Date of Assessment Author 127.46 04/19/2025 11:34 AM EDT Amber East * EBW (kg) Answer Date of Assessment Author 17.67 04/19/2025 11:34 AM EDT Julia Easte * EBW (lb) Answer Date of Assessment Author 39 04/19/2025 11:34 AM EDT Amber East * Difference in Weight Since Last Visit Answer Date of Assessment Author 1 04/19/2025 11:34 AM EDAmber Moseley * IBW/kg (Calculated) Answer Date of Assessment Author 63.8 04/19/2025 11:34 AM EDT Amber East * Adult Low Range Vt 6mL/kg Answer Date of Assessment Author 382.8 04/19/2025 11:34 AM EDT Julia Easte * Adult Moderate Range Vt 8mL/kg Answer Date of Assessment Author 510.4 04/19/2025 11:34 AM EDT Amber East * Adult High Range Vt 10mL/kg Answer Date of Assessment Author 638 04/19/2025 11:34 AM EDT Amber East * Pain Score Answer Date of Assessment Author 1 04/19/2025 11:35 AM EDT Amber East * Pain Screening/Additional Assessments Question Answer Date of Assessment Author Pain Screening/Assessments Pain Screening 04/19/2025 1 1:35 AM Amber Garcia Pain Screening Answer Date of Assessment Author 0-10 04/19/2025 11:35 AM EDT Amber East * BP Answer Date of Assessment Author 128/84 04/19/2025 11:34 AM EDT Amber East * Pulse Answer Date of Assessment Author 83 04/19/2025 11:34 AM EDT Amber East * SpO2 Answer Date of Assessment Author 97 04/19/2025 11:34 AM EDT Amber East * Height Answer Date of Assessment Author 66 04/19/2025 11:34 AM EDAmber Moseley * Weight Answer Date of Assessment Author 2895.96 04/19/2025 11:34 AM EDAmber Moseley * BSA (Calculated - sq m) Answer Date of Assessment Author 1.96 04/19/2025 11:34 AM EDAmber Moseley * BMI (Calculated) Answer Date of Assessment Author 29.23 04/19/2025 11:34 AM Amber Levy * Weight in (lb) to have BMI = 25 Answer Date of Assessment Author 154.6 04/19/2025 11:34 AM Amber Levy * Pain Score Answer Date of Assessment Author 1 04/19/2025 11:35 AM Amber Levy documented as of this encounter Mental Status * BP Answer Entry Date Author 128/84 04/19/2025 11:34 AM EDAmber Moseley * Pulse Answer Entry Date Author 83 04/19/2025 11:34 AM EDT Amber East * SpO2 Answer Entry Date Author 97 04/19/2025 11:34 AM EDT Amber East * Height Answer Entry Date Author 66 04/19/2025 11:34 AM EDT Amber East * Weight Answer Entry Date Author 2895.96 04/19/2025 11:34 AM EDAmber Moseley * BMI (Calculated) Answer Entry Date Author 29.3 04/19/2025 11:34 AM EDT Amber East * Percent Excess Weight Loss Answer Entry Date Author 0 04/19/2025 11:34 AM EDT Amber East * Total Weight Change Percent Answer Entry Date Author 2222 04/19/2025 11:34 AM EDT Amber East * Weight Change Since Preop Answer Entry Date Author 82.08 04/19/2025 11:34 AM EDT Amber East * Initial Excess Weight Answer Entry Date Author -64.41 04/19/2025 11:34 AM EDT Julia Easte * IBW in lbs (Bariatric) Answer Entry Date Author 142 04/19/2025 11:34 AM EDT Amber East * Weight Change Since Last Visit Answer Entry Date Author 82.08 04/19/2025 11:34 AM EDT Amber East * IBW in kg (Bariatric) Answer Entry Date Author 64.41 04/19/2025 11:34 AM EDT Amber East * Percent of IBW Answer Entry Date Author 4,496.13 04/19/2025 11:34 AM EDT Amber East * EBW (kg) Answer Entry Date Author 2,894.13 04/19/2025 11:34 AM EDAmber Moseley * EBW (lbs) Answer Entry Date Author 2,887.09 04/19/2025 11:34 AM EDT Amber East * Weight Change 24 hrs Answer Entry Date Author 1 04/19/2025 11:34 AM EDT Amber East * BSA (Calculated - sq m) Answer Entry Date Author 1.96 04/19/2025 11:34 AM EDT Amber East * BMI (Calculated) Answer Entry Date Author 29.23 04/19/2025 11:34 AM EDT Julia Easte * IBW/kg (Calculated) Male Answer Entry Date Author 63.8 04/19/2025 11:34 AM EDT Greenwel l, Amber * IBW/kg (Calculated) Female Answer Entry Date Author 59.3 04/19/2025 11:34 AM EDT Robbi Eastlie * IBW/kg (Calculated) Answer Entry Date Author 63.8 04/19/2025 11:34 AM EDT Robbi Eastlie * Restart Pain Assessment Timer Answer Entry Date Author Yes 04/19/2025 11:35 AM EDT Julia Easte * Weight in (lb) to have BMI = 25 Answer Entry Date Author 154.6 04/19/2025 11:34 AM EDT Robbi Eastlie * BMI (Calculated) Answer Entry Date Author 29.3 04/19/2025 11:34 AM EDT Julia Easte * Percent Excess Weight Loss Answer Entry Date Author 0 04/19/2025 11:34 AM EDT Julia Easte * Weight Change Since Preop Answer Entry Date Author 82.1 04/19/2025 11:34 AM EDT Julia Easte * Initial Excess Weight Answer Entry Date Author -64.41 04/19/2025 11:34 AM EDT Robbi Eastlie * IBW in kg (Bariatric) Answer Entry Date Author 64.41 04/19/2025 11:34 AM EDT Robbi Eastlie * IBW in lb (Bariatric) Answer Entry Date Author 142 04/19/2025 11:34 AM EDT Julia Easte * Weight Change Since Last Visit Answer Entry Date Author 82.1 04/19/2025 11:34 AM EDT Robbi Eastlie * Percent of IBW Answer Entry Date Author 127.46 04/19/2025 11:34 AM EDT Robbi Eastlie * EBW (kg) Answer Entry Date Author 17.67 04/19/2025 11:34 AM EDT Robbi Eastlie * EBW (lb) Answer Entry Date Author 39 04/19/2025 11:34 AM EDT Robbi Eastlie * Difference in Weight Since Last Visit Answer Entry Date Author 1 04/19/2025 11:34 AM EDT Robbi Eastlie * IBW/kg (Calculated) Answer Entry Date Author 63.8 04/19/2025 11:34 AM EDT Amber East * Adult Low Range Vt 6mL/kg Answer Entry Date Author 382.8 04/19/2025 11:34 AM EDT Julia Easte * Adult Moderate Range Vt 8mL/kg Answer Entry Date Author 510.4 04/19/2025 11:34 AM EDT Julia Easte * Adult High Range Vt 10mL/kg Answer Entry Date Author 638 04/19/2025 11:34 AM EDT Amber East * Pain Score Answer Entry Date Author 1 04/19/2025 11:35 AM EDT Amber East * Pain Screening Answer Entry Date Author 0-10 04/19/2025 11:35 AM EDT Amber East documented in this encounter Miscellaneous Notes * Progress Notes - Sarika Lozano PA - 04/19/2025 11:00 AM EDT Reason for visit / Chief Complaint: Ascending aortic aneurysm History of present illness: Kris Sneed is a 59 y.o. male with history of hypertension and coronary artery disease (with stent placement) presents today for 6 month follow up of ascending aortic aneurysm. On CT of chest, it was measuring 4.6 cm on 09/30/2024. In September, he was experiencing chest pain and had experienced syncopal episodes. He underwent left heart catheterization in October 2024 with placement of stent. Since stent placement, he has been feeling much better and has not had any chest pain or near-syncopal episodes. The aneurysm appears to be stable at 4.6 cm on imaging today. Medical History His chronic comorbid conditions that impact our treatment planning include: Cardiac Surgery: The comorbid conditions that impact and complicate our treatment planning include:Atherosclerosis, Non-peripheral Complication of Cardiac/Vascular Device/Implant/Graft Smoking Cessation: Patient has decreased smoking since last visit. Active Problems: Patient Active Problem List Diagnosis Date Noted Aneurysm of ascending aorta without rupture (CMS/HCC) 04/19/2025 BMI 29.0-29.9,adult 10/12/2024 Medical History: Past Medical History Pertinent Negatives[1] Surgical History: Surgical History[2] Social History: Tobacco: Tobacco Use: High Risk (04/19/2025) Patient History Smoking Tobacco Use: Every Day Smokeless Tobacco Use: Never Passive Exposure: Not on file Alcohol: Alcohol Use: Not on file Illicit drug use: Social History Substance and Sexual Activity Drug Use Never Family History: family history is not on file. Allergies: Allergies[3] Medications: Prior to Admission medications Medication Sig Start Date End Date Taking? Authorizing Provider ASPIRIN 81 MG chewable tablet Chew 1 tablet daily. Yes Provider, Historical atorvastatin (Lipitor) 80 MG tablet Take 1 tablet by mouth daily. 06/30/24 Yes Provider, Historical buPROPion XL (Wellbutrin XL) 150 MG 24 hr tablet Take 1 tablet by mouth every morning. 09/13/24 Yes Provider, Historical famotidine (Pepcid) 40 MG tablet Take 1 tablet by mouth daily. Yes Provider, Historical losartan (Cozaar) 50 MG tablet Take 0.5 tablets by mouth daily. 04/18/24 Yes Provider, Historical nitroglycerin (Nitrostat) 0.[address] 1 tablet under the tongue every 5 minutes as needed for chest pain. 04/19/25 Yes Arms, LIOR Urena prasugrel (Effient) 10 MG tablet Take 1 tablet by mouth daily. 09/13/24 Yes Provider, Historical Repatha SureClick 140 MG/ML solution auto-injector Inject 1 mL under the skin every 14 (fourteen) days. 08/18/24 Yes Provider, Historical amoxicillin (Amoxil) 500 MG capsule Take 1 capsule by mouth 3 (three) times a day. Patient not taking: Reported on 04/19/2025 10/11/24 Provider, Historical metoprolol succinate XL (Toprol-XL) 25 MG 24 hr tablet Take 0.5 tablets by mouth daily. Patient not taking: Reported on 04/19/2025 06/30/24 Provider, Historical nitroglycerin (Nitrostat) 0.[address] 1 tablet under the tongue every 5 (five) minutes as needed. Patient not taking: Reported on 04/19/2025 02/26/24 04/19/25 Provider, Historical Physical exam: Visit Vitals BP 128/84 Pulse 83 Ht 1.676 m (5' 6 ) Wt 82.1 kg (181 lb) SpO2 97% BMI 29.21 kg/m?? Review of Systems All other systems reviewed and are negative. Physical Exam Constitutional: Appearance: Normal appearance. HENT: Head: Normocephalic and atraumatic. Right Ear: External ear normal. Left Ear: External ear normal. Nose: Nose normal. Mouth/Throat: Pharynx: Oropharynx is clear. Eyes: Pupils: Pupils are equal, round, and reactive to light. Cardiovascular: Rate and Rhythm: Normal rate and regular rhythm. Pulses: Normal pulses. Heart sounds: Normal heart sounds. Pulmonary: Effort: Pulmonary effort is normal. Breath sounds: Normal breath sounds. Abdominal: Palpations: Abdomen is soft. Genitourinary: Comments: Deferred Musculoskeletal: General: Normal range of motion. Cervical back: Normal range of motion. Skin: General: Skin is warm and dry. Capillary Refill: Capillary refill takes less than 2 seconds. Neurological: General: No focal deficit present. Mental Status: He is alert and oriented to person, place, and time. Psychiatric: Mood and Affect: Mood normal. Behavior: Behavior normal. Thought Content: Thought content normal. Judgment: Judgment normal. Imaging: Imaging reviewed and interpreted with Dr. Schmid. CTA chest 04/19/2025: No formal read yet, aneurysm appears stable at 4.6 cm. Cardiac Cath Results: 11/09/2024: Severe disease in a large posterior descending artery which correlates to abnormal myoview. Successful stenting of the large posterior descending artery severe disease reduced to 0% with 1drug-eluting stent. Impression: Kris Sneed is a 59 y.o. male with history of hypertension and coronary artery disease (with stent placement) presents today for 6 month follow up of ascending aortic aneurysm. He is here for follow up with CTA today. We will follow him for ascending aortic aneurysm surveillance in 1year. Plan: - Follow up in 1 year with CTA prior to appointment for ascending aortic aneurysm surveillance. - Continue with tight blood pressure control. - Avoid any activities which require straining. - Nitroglycerin refilled. [1] History reviewed. No pertinent past medical history. [2] History reviewed. No pertinent surgical history. [3] No Known Allergies Cosigned by Grady Schmid MD at 04/23/2025 1:22 PM EST Associated attestation - Grady Schmid MD - 04/23/2025 1:22 PM EST Seen and examined and records reviewed and discussed with I agree with the note and plan. documented in this encounter Plan of Treatment Upcoming Encounters Date Type Department Care Team (Late st Contact Info) Description 04/11/2026 10:00 AM EDT Appointment [facility] [address] [place] [address] 04/11/2026 12:45 PM EDT Office Visit [place] [facility] [address], [address] [place] [address] Grady Schmid MD [address] [place] [address] Scheduled Orders Name Type Priority Associated Diagnoses Orde r Schedule CT Angio Chest Imaging Routine Aneurysm of ascending aorta without rupture (CMS/HCC) Expected: 04/19/2026 (Approximate), Expires: 10/21/2026 documented as of this encounter Visit Diagnoses Diagnosis Aneurysm of ascending aorta without rupture (CMS/HCC)- Primary documented in this encounter Additional Health Concerns Assessment Noted Time A fall risk assessment has been complete d for the patient 10/12/2024 11:02 AM EDT A Body Mass Index follow-up plan has been documented for the patient 04/19/2025 12:28 PM EDT documented as of this encounter Care Teams Relationship Counselor Relationship Specialty Start Date End Date Tod Valderrama MD PCP - General Family Medicine 10/12/24 Stiven Rodarte PA [address] [place] [address] [place] [address] Referring Physician 10/13/24 documented as of this encounter
[2025-06-13 16:32] LABS: Hematocrit 43.4 % (42.0-52.0); Hemoglobin 14.8 g/dL (14.1-18.0); Immature Granulocytes % 0.3 %; Mean Corpuscular HGB Conc 34.1 g/dL (31.8-35.4); Mean Corpuscular Hemoglobin 32.4 pg (27.0-31.2); Mean Corpuscular Volume 95.0 fl (80-94); Nucleated Red Blood Cells % 0 %; Platelet Count 166 K/mm3 (142-424); Red Blood Count 4.57 M/mm3 (4.60-6.20); Red Cell Distribution Width-SD 43.8 fL; White Blood Count 7.2 K/mm3 (4.8-10.8)
[2025-06-13 16:39] LABS: Alanine Aminotransferase 24 U/L (12-78); Albumin Level 4.0 g/dl (3.5-5.0); Albumin/Globulin Ratio 1.6 (1.1-1.8); Alkaline Phosphatase 95 U/L (38-126); Anion Gap 8.5 mEq/L (5-15); Aspartate Amino Transferase 34 U/L (17-59); Bilirubin,Total 0.6 mg/dl (0.2-1.3); Blood Urea Nitrogen 15 mg/dl (9-20); Calcium 8.9 mg/dl (8.4-10.2); Carbon Dioxide 31 mmol/L (22.0-30.0); Chloride 104 mmol/L (98-107); Creatinine,Serum 1.00 mg/dl (0.66-1.25); Estimated Glomerular Filt Rate 76 ml/min (>60); GFR (African American) 93 ML/MIN (>60); Globulin 2.5 g/dL (1.3-3.2); Glucose 99 mg/dl (74-100); Potassium 4.5 mmoL/L (3.5-5.1); Sodium 139 mmol/L (136-145); Total Protein,Serum 6.5 g/dl (6.3-8.2)
--- OUTSIDE RECORDS SUMMARY | 2025-06-16 10:14 | XMS_ITS | Encounter Summary ---
Author Organization [facility] Address [address] [place] [address] Care Team Providers Care Formation Fracturing Operator Name Role Phone Tod Valderrama MD Primary Care Provider Stiven Gonzalez Unavailable [phone] Encounter Details Date Type Department Care Team [...] on file documented as of this encounter Functional Status * Communicable Disease Screening Question Answer Date of Assessment Author Have you been in contact wit h someone who was sick? No / Unsure 04/19/2025 8:51 AM EDT Yaneth Molina Do you have any of the follo wing new or worsening symptoms? None of these 04/19/2025 8:51 AM EDT Radhika Molina * Travel Screening Question Answer Date of Assessment Author Have you traveled internatio jean or domestically in the last month? No 04/19/2025 8:51 [address] EDT [address] documented as of this encounter Mental Status * Communicable Disease Screening Question Answer Entry Date Author Have you been in contact wit h someone who was sick? No / Unsure 04/19/2025 8:51 AM EDT Yaneth Molina Do you have any of the follo wing new or worsening symptoms? None of these 04/19/2025 8:51 AM EDT Radhika Molina * Travel Screening Question Answer Entry Date Author Have you traveled internatio jean or domestically in the last month? No 04/19/2025 8:51 AM EDT Yan[address] documented in this encounter Plan of Treatment Upcoming Encounters Date Type Department Care Team (Late st Contact Info) Description 04/11/2026 10:00 AM EDT Appointment [facility] [address] [place] [address] 04/11/2026 12:45 PM EDT Office Visit [facility] [address], [address] [place] [address] Grady Schmid MD [address] [place] [phone] documented as of this encounter Visit Diagnoses Not on filedocumented in this encounter Additional Health Concerns Assessment Noted Time A fall risk assessment has been complete d for the patient 10/12/2024 11:02 AM EDT A Body Mass Index follow-up plan has been documented for the patient 04/19/2025 12:28 PM EDT documented as of this encounter Care Teams Formation Fracturing Operator Relationship Specialty Start Date End Date Tod Valderrama MD PCP - General Family Medicine 10/12/24 Stiven Rodarte PA [address] [place] [id number] Referring Physician 10/13/24 documented as of this encounter
--- OUTSIDE RECORDS SUMMARY | 2025-06-16 10:14 | XMS_ITS | Clinical Summary ---
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 pectoris 11/28/2015 Hypercholesteremia 11/28/2015 [...] 10:54 AM EST Coronary artery disease involving [place] coronary artery of [place] heart with angina pectoris Hypercholesteremia from Last 3 Months or Most Recently Relevant to Health Maintenance Results * (ABNORMAL) Lipid Panel (07/10/2017 10:54 AM EST) Total Cholesterol 165 0 - 200 mg/dL 07/10/2017 11:35 AM EST [facility] Triglycerides 194(H) 0 - 150 mg/dL 07/10/2017 11:35 AM EST [facility] HDL Cholesterol 32(L) 40 - 60 mg/dL 07/10/2017 11:35 AM EST [facility] LDL Cholesterol 118 0 - 130 mg/dL 07/10/2017 11:35 AM EST [facility] Blood Venipuncture / Unknown 07/10/2017 10:54 AM EST 07/10/2017 10:54 AM EST [facility] - 07/10/2017 11:35 AM EST Cholesterol [...] [facility] BLOOD ORDERABLES Final Re sult [facility]
[address] [place] [address], from Last 3 Months or Most Recently Relevant to Health Maintenance Care Teams Transcription Typist Relationship Specialty Start Date End Date Provider, [place] [address] PCP - General 11/19/15
--- OUTSIDE RECORDS SUMMARY | 2025-06-16 10:14 | XMS_ITS | Encounter Summary ---
Author Organization [facility] Address [address] [place] [address] Care Team Providers Care Car Repairer Apprentice Name Role Phone Roman Baker MD Primary Care Provider [phone] Tod Valderrama MD Primary Care Provider Yani Stiven Hussein Unavailable [phone] Encounter Details Date Type Department Care Team (Late Contact Info) Description 10/23/2022 Orders Only External Location [address] [place] [address] Provider, External Social History Tobacco Use Types [...] EDT Appointment [facility] [address] [place] [address] 04/11/2026 12:45 PM EDT Office Visit [facility] [address], [address] [place] [address] Grady Schmid MD [address] [place] [address] documented as of this encounter Procedures Procedure [...] on filedocumented in this encounter Care Teams Car Repairer Apprentice Relationship Specialty Start Date End Date Roman Baker MD [address] [place] [address] PCP - General 11/02/20 10/11/24 Tod Valderrama MD [address] [place] [phone] PCP - General Family Medicine 10/12/24 Stiven Rodarte PA [address] [place] [address] [place] [address] Referring Physician 10/13/24 documented as of this encounter
--- OUTSIDE RECORDS SUMMARY | 2025-06-16 10:14 | XMS_ITS | Clinical Summary ---
Author Organization [facility] Address [address] [place] [address] Care Team Providers Care Manager Culinary Name Role Phone Tod Valderrama MD Primary Care Provider Stiven Gonzalez Unavailable [phone] Allergies No known active allergies Medications [...] Description 04/19/2025 11:00 AM EDT Office Visit [facility] Cardi[facility] [address], [address] [place] [phone] Grady Schmid MD Aneurysm of ascending aorta without rupture (CMS/HCC) (Primary Dx) 04/19/2025 8:52 AM EDT - 04/19/2025 11:59 PM EDT Hospital Encounter [facility] [address] [place] [address] Aneurysm of ascending aorta without rupture (CMS/HCC) [...] EDT Appointment [facility] [address] [place] [phone] 04/11/2026 12:45 PM EDT Office Visit [facility] [address], [address] [place] [phone] Grady Schmid MD [address] [place] [phone] Health Maintenance Due Date Last Done Comments [...] 2010 [facility]-Zoster Vaccines (1 of 2) 09/10/2015 [id number] Vaccine (1 - season) 2025 [facility]-Influenza Vaccine [...] Omnipaque 350 was administered during the examination. [id number] workstation manipulation and review of the data [...] from Last 3 Months Insurance Care Teams Manager Culinary Relationship Specialty Start Date End Date Tod Valderrama MD PCP - General Family Medicine 10/12/24 Stiven Rodarte PA Pending sale to [facility] [place] [id number] Referring Physician 10/13/24
== END 2025-06-13 23:59 | disposition home or self-care (01) ==
LOC: LAB.DROPOF 06-16 10:13
PROVIDERS: PCP Family Medicine; Visit Provider Family Medicine
DX: N17.9 Acute kidney failure, unspecified (principal)
CPT/HCPCS: 80053; 85025